=== PATIENT | male | born 1960 | race Caucasian/White ===

== ENCOUNTER 2019-09-06 08:40 | Outpatient (CLI) | payer OTHER, SELFPAY ==
[2019-09-06 09:46] LABS: ALT 35 U/L (16-63); AST 14 U/L (15-37); Albumin 3.7 g/dL (3.4-5.0); Alkaline Phosphatase 123 U/L (46-116); BUN 18 mg/dL (7-18); Bilirubin, Total 0.4 mg/dL (0.2-1.0); CREATININE 1.12 mg/dL (0.70-1.30); Calcium 8.6 mg/dL (8.5-10.1); Chloride 108 mmol/L (98-107); Glucose 138 mg/dL (74-106); Potassium 4.2 mmol/L (3.5-5.1); Sodium 144 mmol/L (136-145); Total Protein 6.7 g/dL (6.4-8.2)
== END 2019-09-06 09:00 ==
PROVIDERS: PCP Internal Medicine; Visit Provider Internal Medicine
DX: I10 Essential (primary) hypertension (principal); E78.5 Hyperlipidemia, unspecified; M10.9 Gout, unspecified
CPT/HCPCS: 36415; 80053

== ENCOUNTER 2019-10-04 08:21 | Outpatient (CLI) | payer OTHER, SELFPAY ==
[2019-10-04 09:34] LABS: Hemoglobin A1C 6.3 % (3.8-5.6)
== END 2019-10-04 08:41 ==
PROVIDERS: PCP Internal Medicine; Visit Provider Internal Medicine
DX: R73.9 Hyperglycemia, unspecified (principal)
CPT/HCPCS: 36415; 83036

== ENCOUNTER 2021-06-27 03:09 | Outpatient (CLI) | payer OTHER, SELFPAY ==
[2021-06-27 12:25] LABS: Hemoglobin A1C 6.6 % (<5.7)
[2021-06-27 12:39] LABS: CREATININE 1.3 mg/dL (0.70-1.30); Calculated LDL 60 mg/dL (<100); Cholesterol 161 mg/dL (<200); Estimated GFR 56.31 (mL/min/1.73m2); HDL Cholesterol 37 mg/dL (40-60); Triglyceride 320 mg/dL (<150)
[2021-06-27 22:38] LABS: PSA, Screening 1.1 ng/mL (0.0-4.5)
== END 2021-06-27 03:10 | disposition home or self-care (01) ==
LOC: LBO 03:09
PROVIDERS: PCP Nurse Practitioner; Visit Provider Nurse Practitioner
DX: I10 Essential (primary) hypertension (principal); E78.5 Hyperlipidemia, unspecified; R73.03 Prediabetes; Z12.5 Encounter for screening for malignant neoplasm of prostate; Z80.42 Family history of malignant neoplasm of prostate
CPT/HCPCS: 36415; 80061; 84153; 82565; 83036

== ENCOUNTER 2021-07-03 00:45 | Outpatient (CLI) | payer OTHER, SELFPAY ==
[2021-07-03 11:29] LABS: Source Nasal/Nares
[2021-07-03 17:20] LABS: COVID-19 PCR Negative (Negative)
== END 2021-07-03 00:46 | disposition home or self-care (01) ==
LOC: LBO 00:45
PROVIDERS: PCP Nurse Practitioner; Visit Provider Surgery
DX: Z20.822 Contact with and (suspected) exposure to COVID-19 (principal); Z01.818 Encounter for other preprocedural examination
CPT/HCPCS: 87635

== ENCOUNTER 2021-07-05 08:56 | Day surgery (SDC) | payer OTHER, SELFPAY ==
--- NOTE | 2021-07-04 22:35 | W.COLOREPORT ---
Colonoscopy Report Date of procedure: 07/05/21 Pre-op diagnosis general: + Fam Hx of CRC Post-op diagnosis procedure note: other (polyps x4) Surgeon: Gabi Baron Anesthesia Type: General:No Airway Estimated blood loss (mL): 1 Pathology: other Complications: None Disposition: same day Prep: Miralax/Dulcolax Retraction Time: 10 Procedure Description: After informed consent was obtained the patient was taken to the procedure room and placed in a left decubitous position. Monitors were applied and a time out was done. The patients name, date of , procedure, allergies to medications and metal in their body was reviewed. The patient was then sedated. Once sedated and comfortable a rectal exam was done. External exam was normal. Internal exam revealed a normal sphincter tone and no palpable masses. The scope was then introduced and retrofelexed. No internal hemorrhoids were identified. The scope was then advanced to the cecum w/out difficulty. The TI and appendiceal orifice were identified. The prep was adequate. The scope was then slowly retracted over 10 minutes back into the rectum. An .75 cm flat polyp removed with x2 bites w/ cold biting forcep. He had x3 5 mm flat polyps in the rectum that are each removed with 1 by a cold biting forcep. All specimen is retrieved and no bleeding is noted. There is no diverticula apparent. The scope was removed and the patient was woken up and taken back to Same day surgery in stable condition. The patient tolerated the procedure well and there were no immediate complications. Follow up: The patient should follow up in 5 years unless they develop changes in bowel habits or other new gastrointestinal complaints.
--- NOTE | 2021-07-04 22:36 | PDOC.DSDIS_ITS ---
Discharge Plan Disposition Patient Disposition: HOME Condition: Good Discharge Details Reason For Visit: colon Attending Provider: Gabi Baron Primary Care Provider: Hali King Home Meds and New Rx's Prescriptions: Discontinued polyethylene glycol 3350 17 gram/dose powder 238 g PO ONCE Qty: 238 RF: 0 bisacodyl [Dulcolax (bisacodyl)] 5 mg tablet,delayed release (DR/EC) 5 mg PO ONCE Qty: 4 RF: 0 No Action allopurinol 300 mg tablet 300 mg PO DAILY Qty: 90 RF: 4 atorvastatin [Lipitor] 40 mg tablet 40 mg PO DAILY Qty: 90 RF: 4 metoprolol succinate 100 mg tablet extended release 24 hr 100 mg PO DAILY Qty: 90 RF: 4 metformin 500 mg tablet 500 mg PO DAILY Qty: 90 RF: 4 Discharge Instructions Additional Instructions: DSU Colonoscopy Post- Op Instructions Instructions for Everyone who is given Anesthesia: For your safety, please do the following for the next twenty-four (24) hours: *Do Not operate a motor vehicle (car, truck, motorcycle, etc.) *Do Not drink alcoholic beverages or use any recreational drugs for the first 24 hours or while taking pain medications. The medications in your body may have a reaction that can be dangerous. *Do Not make any important decisions or sign any important papers. Findings: x4 polyps- small -Do not start metformin until Thursday Follow up: repeat scope in 5 yrs time 1. No lifting over 20 pounds or strenuous activity for the first 24 hours after your procedure. After 24 hours there are no restrictions on your activity but you may feel fatigued for a few days. 2. After you arrive home you may have a light meal and return to your normal diet as you can tolerate it without feeling sick to your stomach. 3. You may have a bloated, gaseous feeling in your belly (abdomen) after a colonoscopy. Passing gas and belching will help. Walking or lying down on your left side with your knees flexed may relieve the discomfort. Call the office at [phone] (Office) or [phone] (Hospital) right away if you notice any of the following: a.Vomiting of blood or ?coffee ground stools?. b.Rectal bleeding 1Tbsp, blood clots or continuous bleeding. c.Severe belly (abdominal) pain. d.A hard distended belly (abdomen) and an inability to pass gas. 4. Please don?t expect to have a normal BM (bowel movement) for 2-3 days after your procedure. 5. If there are questions regarding the findings of your procedure, please contact your doctor 6. If you are unable to contact your doctor with a problem, contact the hospital at [phone]. 7. Continue all your regular medications unless directed otherwise. I understand the above instructions and have no questions. Signature of Patient or Adult Escort Name of Responsible Adult Escort Signature of Nurse Date/Time Activity:: see above Diet:: see above Discharge Orders Discharge Orders: Discharge Order (Routine); Ordered 07/04/21 Ordered By: Gabi Baron DS: Diagnosis Discharge Diagnosis (1) Type 2 diabetes mellitus: Status: Acute (2) ASCVD (arteriosclerotic cardiovascular disease): Status: Chronic (3) Gout: Status: Chronic (4) Hyperlipidemia: Status: Chronic (5) Essential hypertension: Status: Chronic (6) History of heart artery stent: Status: Inactive (7) Tobacco use disorder: Status: Resolved (8) Adenomatous colon polyp: Status: Acute (9) Family history of colon cancer: Status: Acute
[2021-07-05 09:00] VITALS: BP 163/77; PULSE 74; RESP 18; TEMP 36.2; O2SAT 97
[2021-07-05] MEDS: Lactated Ringers 1,000 ML 80 ML IV (09:28)
--- NOTE | 2021-07-05 09:28 | W.ANESPRE ---
General Info Date of Service Date Performed: 07/05/21 Height: 5 ft 10 in Weight: 104.2 kg Body Mass Index (BMI): 32.9 Surgical Procedure: Operation Date: 07/05/21 09:50 Proposed Procedures Side Surgeon abhinav Baron, DO Meds Allergies and Home Medications Allergies Allergy/AdvReac Type Severity Reaction Status Date / Time No Known Drug Allergies Allergy Unverified 07/05/21 09:13 Home Medication Medication Instructions Recorded allopurinol 300 mg tablet 300 mg PO DAILY #90 tab-cap 06/20/21 atorvastatin 40 mg tablet 40 mg PO DAILY #90 tab-cap 06/20/21 metoprolol succinate 100 mg 100 mg PO DAILY #90 tab 06/20/21 tablet,extended release 24 hr bisacodyl 5 mg tablet,delayed 5 mg PO ONCE #4 tab 06/21/21 release polyethylene glycol 3350 17 238 g PO ONCE #238 g 06/21/21 gram/dose oral powder metformin 500 mg tablet 500 mg PO DAILY #90 tab 06/27/21 Current Visit Medications: Current Medications Generic Name Dose Route Start Last Admin Trade Name Freq PRN Reason Stop Dose Admin Hyoscyamine Sulfate 0.125 mg 07/04/21 22:37 Hyoscyamine 0.125 Mg Sl/Oral/Chew SL DIRECTED PRN Ringer's Solution 1,000 mls @ 80 mls/hr 07/05/21 06:00 IV 08/03/21 23:59 INFUSION BHANU IV Miscellaneous Supplies 1 each 07/05/21 06:00 Iv Access IV 08/03/21 23:59 DIRECTED BHANU Sodium Chloride 0 ml 07/05/21 06:00 Normal Saline Flush 10 Ml Syr IV 08/03/21 23:59 PRN PRN Sodium Chloride 0 ml 07/05/21 06:00 Normal Saline 10 Ml Vial IJ 08/03/21 23:59 DIRECTED PRN Sterile Water 0 ml 07/05/21 06:00 Water,Injection,Sterile 10 Ml Vial IJ 08/03/21 23:59 DIRECTED PRN PFSH Active Problems Active Problems: Problem Status Onset Code Type 2 diabetes mellitus E11.9 ASCVD (arteriosclerotic cardiovascular disease) I25.10 Gout M10.9 Hyperlipidemia E78.5 Essential hypertension I10 Medical History Medical History ASCVD (arteriosclerotic cardiovascular disease) stent to LAD 2006-has not needed to f/u up with cardiology but does with PCP Diabetes mellitus Essential hypertension Family history of colon cancer Family history of prostate cancer Gout Inactive right now. Herniated cervical disc without myelopathy Hyperlipidemia Surgical History Surgical History History of arthroplasty of right knee (~1996) Pt. states not arthroplasty but arthroscopy History of colonoscopy (~10/01/15) History of heart artery stent Tobacco Smoking/Tobacco Use Status: Former Tobacco Use Tobacco: How many years used: 20 Passive smoking exposure: Yes Alcohol Alcohol Intake: current Alcohol intake frequency: holidays/special occasions only Alcohol type: hard liquor Substance Use Substance use: Rarely Substance use type: marijuana Vital Signs and Lab Results Vital Signs Most Recent Vital Signs in EMR: Most Recent Vital Signs Temp Pulse Resp BP Pulse Ox 36.2 C L 74 18 163/77 H 97 07/05/21 09:00 07/05/21 09:00 07/05/21 09:00 07/05/21 09:00 07/05/21 09:00 Point of Care Results Point of Care Results: Finger Stick Blood Glucose 116 07/05/21 09:24 Lab Results Blood Type / Crossmatch: No Data to Display Complete Blood Count: No Data to Display Complete Metabolic Panel: Creatinine 1.3 mg/dL (0.70-1.30) 06/27/21 11:20 06/27/21 Estimated GFR/1.73 m2 56.31 (mL/min/1.73m2) 06/27/21 11:20 06/27/21 Hemoglobin A1c 6.6 % (<5.7) H 06/27/21 11:20 06/27/21 Liver Function Panel: No Data to Display Coagulation Panel: No Data to Display Cardiac Panel: No Data to Display Arterial Blood Gas: No Data to Display Venous Blood Gas: No Data to Display Pancreas Panel: No Data to Display Thyroid Panel: No Data to Display Infectious Disease: Coronavirus (COVID-19)(PCR) Negative (Negative) 07/03/21 08:44 07/03/21 Coronavirus 2019 Source Nasal/Nares 07/03/21 08:44 07/03/21 Blood Cultures: No Data to Display Toxicology Panel: No Data to Display Anesthesia Assessment and Plan Anesthesia History Personal History: No History of Anesthesia Complications Family History: No Family History of Anesthesia Complications Exercise Tolerance Exercise Tolerance: Metabolic Equivalents>4 Pertinent Negatives Pertinent Negatives: No Symptoms of GERD, No Major Cardiovascular Symptoms or Complaints (No symptoms since Stenting in 2005), No Major Pulmonary Symptoms or Complaints and No History of CVA/TIA Cardiac & Pulmonary Exam Cardiac Exam: Normal S1/S2 Heart Sounds Pulmonary Exam: Clear Bilateral Breath Sounds and No cough or Cold Airway Exam Known Difficult Airway: No Mallampati Class: 2 Mouth Opening: Normal (> 3cm) Thyromental Distance: Greater than 3 cm Neck Range of Motion: Full ROM Neck Circumference: Normal Teeth Condition: Edentulous ASA Classification ASA Score: ASA 2 Emergency Case?: No NPO Status NPO Status: NPO Clears >2 hours, Solids >8 hours Anesthesia Plan Resuscitation Status: Full Code Anesthesia Technique: General Anesthesia Airway Planned: Natural Airway Monitors Used: Standard Monitors
[2021-07-05 09:34] VITALS: BMI 32.9
--- NOTE | 2021-07-05 10:27 | BOWEL_PTH ---
PATIENT: Tien Clifton LOC: [facility] U#:[id number] AGE/SX: 61/M ROOM: RE07/05/[address]: Gabi Baron : 1960 BED: DIS: 07/05/2021 SPEC #: [id number] RECD: 07/05/21 12:39 STATUS: ALVERTO REQ #: [id number] NESSA: 07/05/21 10:[address]: Gabi Baron DEPT: Surgical Specimen RECD BY: Shelbi Dinero ENTERED: 07/05/21 12:41 SP TYPE: Bowel OTHR DR: Hali King, PhD OPTIMIZATION SPECIALIST Tissues: 1 - BIOPSY BOWEL 2 - BIOPSY BOWEL Procedures: GROSS AND MICRO LEVEL 4 Comments: [id number]
[2021-07-05 10:42] VITALS: BP 128/84; PULSE 75; RESP 16; TEMP 36.3; O2SAT 91
--- NOTE | 2021-07-05 10:55 | PDOC.DSDIS_ITS ---
Discharge Plan Disposition Patient Disposition: HOME Condition: Good Discharge Details Reason For Visit: colon Attending Provider: Gabi Baron Primary Care Provider: Hali King Home Meds and New Rx's Prescriptions: Discontinued polyethylene glycol 3350 17 gram/dose powder 238 g PO ONCE Qty: 238 RF: 0 bisacodyl [Dulcolax (bisacodyl)] 5 mg tablet,delayed release (DR/EC) 5 mg PO ONCE Qty: 4 RF: 0 No Action allopurinol 300 mg tablet 300 mg PO DAILY Qty: 90 RF: 4 atorvastatin [Lipitor] 40 mg tablet 40 mg PO DAILY Qty: 90 RF: 4 metoprolol succinate 100 mg tablet extended release 24 hr 100 mg PO DAILY Qty: 90 RF: 4 metformin 500 mg tablet 500 mg PO DAILY Qty: 90 RF: 4 Discharge Instructions Additional Instructions: DSU Colonoscopy Post- Op Instructions Instructions for Everyone who is given Anesthesia: For your safety, please do the following for the next twenty-four (24) hours: *Do Not operate a motor vehicle (car, truck, motorcycle, etc.) *Do Not drink alcoholic beverages or use any recreational drugs for the first 24 hours or while taking pain medications. The medications in your body may have a reaction that can be dangerous. *Do Not make any important decisions or sign any important papers. Findings: x4 polyps- small -Do not start metformin until Thursday -gargle w/ salt water 5-6x a day -if running a fever (>100.5), coughing up green/yellow phlegm, or feel short of breathe- go to the ER. Follow up: repeat scope in 5 yrs time 1. No lifting over 20 pounds or strenuous activity for the first 24 hours after your procedure. After 24 hours there are no restrictions on your activity but you may feel fatigued for a few days. 2. After you arrive home you may have a light meal and return to your normal diet as you can tolerate it without feeling sick to your stomach. 3. You may have a bloated, gaseous feeling in your belly (abdomen) after a colonoscopy. Passing gas and belching will help. Walking or lying down on your left side with your knees flexed may relieve the discomfort. Call the office at [phone] (Office) or [phone] (Hospital) right away if you notice any of the following: a.Vomiting of blood or ?coffee ground stools?. b.Rectal bleeding 1Tbsp, blood clots or continuous bleeding. c.Severe belly (abdominal) pain. d.A hard distended belly (abdomen) and an inability to pass gas. 4. Please don?t expect to have a normal BM (bowel movement) for 2-3 days after your procedure. 5. If there are questions regarding the findings of your procedure, please contact your doctor 6. If you are unable to contact your doctor with a problem, contact the hospital at [phone]. 7. Continue all your regular medications unless directed otherwise. I understand the above instructions and have no questions. Signature of Patient or Adult Escort Name of Responsible Adult Escort Signature of Nurse Date/Time Stand Alone Forms: Kimberly Hernandez (JESSICA) Activity:: see above Diet:: see above Discharge Orders Discharge Orders: Discharge Order (Routine); Ordered 07/04/21 Ordered By: Gabi Baron DS: Diagnosis Discharge Diagnosis (1) Type 2 diabetes mellitus: Status: Acute (2) ASCVD (arteriosclerotic cardiovascular disease): Status: Chronic (3) Gout: Status: Chronic (4) Hyperlipidemia: Status: Chronic (5) Essential hypertension: Status: Chronic (6) History of heart artery stent: Status: Inactive (7) Tobacco use disorder: Status: Resolved (8) Adenomatous colon polyp: Status: Acute (9) Family history of colon cancer: Status: Acute
--- NOTE | 2021-07-05 11:08 | W.ANESPOSTOP ---
Postoperative Evaluation Date, Time and Location Date Performed: 07/05/21 Time Performed: 10:55 Patient Location: Day Surgery Unit Vital Signs Most Recent Imported Vital Signs: Most Recent Vital Signs Temp Pulse Resp BP Pulse Ox 36.3 C L 75 16 128/84 91 L 07/05/21 10:42 07/05/21 10:42 07/05/21 10:42 07/05/21 10:42 07/05/21 10:42 Pain Score Most Recent Pain Score: Most Recent Pain Score Pain Level 0 07/05/21 10:42 Assessment Mental Status: Awake (Alert & Oriented to Patient Baseline) Airway and Respiratory Function: Patent airway with normal (patient baseline) respiratory exam Cardiovascular Function: Hemodynamically Stable Hydration Status: Adequately Hydrated Nausea & Vomiting: No Nausea or Vomiting Pain: Pt. Denies Any Pain Peripheral Nerve Block: Patient did not receive a nerve block Postoperative Comments:: Discussed possible aspiration , O2 sats improving, able to take deeps breath,s,instructed to seek medical attention for any respiratory issues.
[2021-07-05 11:09] VITALS: BP 136/75; PULSE 68; RESP 18; TEMP 36.3; O2SAT 92
== END 2021-07-05 11:40 | disposition home or self-care (01) ==
PROVIDERS: PCP Nurse Practitioner; Visit Provider Surgery
PROC: 0DJD8ZZ Inspection of Lower Intestinal Tract, Via Natural or Artificial Opening Endoscopic (ICD-10-PCS; CPT 45378; principal; 2021-07-05 09:45)
DX: Z12.11 Encounter for screening for malignant neoplasm of colon (principal); D12.4 Benign neoplasm of descending colon; Z80.0 Family history of malignant neoplasm of digestive organs; E11.9 Type 2 diabetes mellitus without complications; K62.1 Rectal polyp
CPT/HCPCS: 45380; 88305; J2001; J2405

== ENCOUNTER 2022-10-28 03:07 | Outpatient (CLI) | payer OTHER, SELFPAY ==
[2022-10-28 12:54] LABS: ALT 35 U/L (16-63); AST 21 U/L (15-37); Alkaline Phosphatase 118 U/L (46-116); Anion Gap 9.3 mmol/L (3-11); BUN 23 mg/dL (7-18); Bilirubin, Total 0.3 mg/dL (0.2-1.0); CO2 27.7 mmol/L (21.0-32.0); CREATININE 1.3 mg/dL (0.70-1.30); Calcium 9.5 mg/dL (8.5-10.1); Chloride 105 mmol/L (98-107); Glucose 133 mg/dL (74-106); Sodium 142 mmol/L (136-145); Total Protein 7.6 g/dL (6.4-8.2)
[2022-10-28 12:58] LABS: COMMENT (LAB VIEW ONLY) 135.12 mg/dL; Microalb ug/mg Crea 30.4 ug/mg Cr
[2022-10-28 13:00] LABS: Calculated LDL 90 mg/dL (<100); Cholesterol 173 mg/dL (<200); HDL Cholesterol 45 mg/dL (40-60); Triglyceride 193 mg/dL (<150)
[2022-10-28 18:49] LABS: PSA, Screening 1.1 ng/mL (<=4.5)
[2022-10-28 19:14] LABS: Estimated Average Glucose 166 mg/dL; Hemoglobin A1C 7.4 % (<5.7)
== END 2022-10-28 03:08 | disposition home or self-care (01) ==
LOC: LOS 03:07
PROVIDERS: Family Medicine; PCP Nurse Practitioner Family; Visit Provider Nurse Practitioner Family
DX: E11.9 Type 2 diabetes mellitus without complications (principal); E78.5 Hyperlipidemia, unspecified; Z12.5 Encounter for screening for malignant neoplasm of prostate
CPT/HCPCS: 36415; 80053; 80061; 84153; 82043; 82570; 83036

== ENCOUNTER 2023-10-27 09:36 | Outpatient (REF) | payer OTHER, SELFPAY ==
[2023-10-27 12:56] LABS: ALT 41 U/L (16-63); AST 21 U/L (15-37); Albumin 3.9 g/dL (3.4-5.0); Alkaline Phosphatase 110 U/L (46-116); Anion Gap 8.8 mmol/L (3-11); BUN 21 mg/dL (7-18); Bilirubin, Total 0.4 mg/dL (0.2-1.0); CO2 24.2 mmol/L (21.0-32.0); CREATININE 1.3 mg/dL (0.70-1.30); Calculated LDL 80 mg/dL (<100); Chloride 107 mmol/L (98-107); Cholesterol 178 mg/dL (<200); Estimated GFR 62.11 (mL/min/1.73m2); Glucose 181 mg/dL (74-106); HDL Cholesterol 41 mg/dL (40-60); Potassium 4.2 mmol/L (3.5-5.1); Sodium 140 mmol/L (136-145); Total Protein 7.2 g/dL (6.4-8.2); Triglyceride 287 mg/dL (<150)
[2023-10-28 10:33] LABS: HIV-1/2 Ag & Ab Screen Negative (Negative)
== END 2023-10-27 09:37 | disposition home or self-care (01) ==
LOC: LBN 09:36
PROVIDERS: PCP Nurse Practitioner Family; Visit Provider Nurse Practitioner Family
DX: E11.9 Type 2 diabetes mellitus without complications (principal); E78.5 Hyperlipidemia, unspecified; Z11.4 Encounter for screening for human immunodeficiency virus [HIV]
CPT/HCPCS: 80053; 80061; 87389; 83036

== ENCOUNTER 2024-01-03 09:15 | Emergency (ER) | payer OTHER, SELFPAY ==
[2024-01-03] VITALS (31 sets, daily range): BP systolic 145–220; BP diastolic 77–106; PULSE 66–90; RESP 8–22; TEMP 36.8; O2SAT 95–98
--- NOTE | 2024-01-03 09:15 | RT.EKG_ITS ---
APPROVED REPORT Exam: Resting ECG Reason for Exam: Chest Pain Patient Location: E HR:92 bpm ECG Measurements Heart Rate 92 AXIS HI 151 P 30 QRSd 85 QRS 28 QT 342 T -11 QTc 424 Conclusion Sinus rhythm 92 no stemi
--- NOTE | 2024-01-03 09:36 | ED.GENADUL_ITS ---
Discharge Plan Disposition Patient Disposition: Home Condition: Stable Discharge Details Clinical Impression: Chest pain of uncertain etiology Primary Care Provider: Fernando Vidal ED Provider: Herber Gonzalez Home Meds and New Rx's Prescriptions: Continued sildenafil [Viagra] 50 mg tablet 50 mg PO DAILY PRN (Reason: sexual activity) Qty: 14 0RF Rx Instructions: administer 30 minutes to 4 hours before activity amlodipine 5 mg tablet 5 mg PO DAILY Qty: 90 4RF Ozempic 0.25 mg or 0.5 mg (2 mg/3 mL) pen injector 0.25 mg subcut QWEEK Qty: 3 0RF Hold Instructions: Formulary/Insurance Rx Instructions: for 4 weeks lisinopril 20 mg tablet 20 mg PO DAILY Qty: 90 4RF metformin 500 mg tablet extended release 24hr 500 mg PO DAILY Qty: 90 4RF Rx Instructions: dose decrease allopurinol 300 mg tablet 300 mg PO DAILY Qty: 90 4RF atorvastatin [Lipitor] 40 mg tablet 40 mg PO DAILY Qty: 90 4RF metoprolol succinate 100 mg tablet extended release 24 hr 100 mg PO DAILY Qty: 90 4RF dulaglutide 0.75 mg/0.5 mL pen injector 0.75 mg subcut QWEEK Qty: 2 0RF Discharge Instructions Instructions: Chest Pain (ED) Additional Instructions: You were seen in the emergency department for your right-sided chest pain starting this morning. It is somewhat resolved throughout the visit today. We did provide you with some aspirin, we checked your cardiac enzymes with multiple rechecks and found that this is not likely a heart attack or causing any damage to the heart itself. Ruled out a blood clot in the lungs through a lab called a D-dimer. Your chest x-ray is unremarkable. Your EKG shows no ischemic changes. You have a stress test scheduled for tomorrow which is excellent close follow-up, please try gentle compress to your right-sided chest pain as well as some Tylenol and ibuprofen, talk to your primary care provider about increasing your amlodipine dose for your noticed mild hypertension, there is no evidence of significant damage from your hypertension at today's visit. Please return to the ER at once for any severe increase in chest pain especially with shortness of breath, sweating, dizziness, visual changes. Referrals: Fernando Vidal, [facility] [Primary Care Provider] - Discharge Data Discharge Date/Time-TO BE ENTERED AT DEPARTURE: 01/03/24 13:40 HPI General Date/Time Provider Initiated Documentation: 01/03/24 09:30 . HPI Narrative: 63 year-old male presents to ED today by POV/ambulating with a chief complaint of chest discomfort, R-sided, pleuritic with onset about an hour ago. Quality described as cramping in nature, no radiation to shortness of breath currently, near syncope, diaphoresis, fever, cough, abdominal pain, visual changes. Severity is described as 6/10. Palliating factors include nothing specific attempted. Provoking factors include nothing specific. Events leading up to the incident/Associated Symptoms: Patient has an outpatient stress test scheduled for tomorrow for history of shortness of breath on exertion/fatigue. Patient not anticoagulated. Related Data Home Medications Medication Instructions Recorded Confirmed allopurinol 300 mg tablet 300 mg PO DAILY #90 tab-caps 10/13/23 01/03/24 atorvastatin 40 mg tablet (Lipitor) 40 mg PO DAILY #90 tab-caps 10/13/23 01/03/24 metoprolol succinate 100 mg 100 mg PO DAILY #90 tabs 10/13/23 01/03/24 tablet,extended release 24 hr sildenafil 50 mg tablet (Viagra) 50 mg PO DAILY PRN sexual activity 10/27/23 01/03/24 #14 tabs amlodipine 5 mg tablet 5 mg PO DAILY #90 tabs 11/14/23 01/03/24 semaglutide 0.25 mg or 0.5 mg (2 0.25 mg (0.368 mL) subcut QWEEK #3 11/14/23 01/03/24 mg/3 mL) subcutaneous pen injector mL (Ozempic) lisinopril 20 mg tablet 20 mg PO DAILY #90 tabs 12/28/23 01/03/24 metformin 500 mg tablet,extended 500 mg PO DAILY #90 tabs 12/28/23 01/03/24 release 24hr (osmotic) dulaglutide 0.75 mg/0.5 mL 0.75 mg (0.5 mL) subcut QWEEK #2 mL 01/01/24 01/03/24 subcutaneous pen injector Previous Rx's Medication Instructions Recorded allopurinol 300 mg tablet 300 mg PO DAILY #90 tab-caps 10/13/23 atorvastatin 40 mg tablet (Lipitor) 40 mg PO DAILY #90 tab-caps 10/13/23 metoprolol succinate 100 mg 100 mg PO DAILY #90 tabs 10/13/23 tablet,extended release 24 hr sildenafil 50 mg tablet (Viagra) 50 mg PO DAILY PRN sexual activity 10/27/23 #14 tabs amlodipine 5 mg tablet 5 mg PO DAILY #90 tabs 11/14/23 semaglutide 0.25 mg or 0.5 mg (2 0.25 mg (0.368 mL) subcut QWEEK #3 11/14/23 mg/3 mL) subcutaneous pen injector mL (Ozempic) lisinopril 20 mg tablet 20 mg PO DAILY #90 tabs 12/28/23 metformin 500 mg tablet,extended 500 mg PO DAILY #90 tabs 12/28/23 release 24hr (osmotic) dulaglutide 0.75 mg/0.5 mL 0.75 mg (0.5 mL) subcut QWEEK #2 mL 01/01/24 subcutaneous pen injector Allergies Allergy/AdvReac Type Severity Reaction Status Date / Time No Known Allergies Allergy Verified 01/03/24 11:42 General Stated Complaint: Chest Pain SARAH: 2 Review of Systems All systems reviewed & are unremarkable except as noted in HPI and below Exam Narrative Exam Narrative: GENERAL APPEARANCE: Well-nourished, non-toxic, awake and alert, atraumatic, no acute distress. SKIN: Warm, pink, dry, intact, without rashes/lesions/ulcerations. HEAD: Normocephalic, atraumatic, normal hair distribution for gender/age. EYES: Pupils PERRLA, EOMs intact without nystagmus, normal conjunctiva, no exudates on lids/lashes. ENT: Nares patent, no circumoral cyanosis, no facial swelling NECK: Supple, trachea midline, painless cervical ROM. LUNGS/CHEST: Lungs CTA bilaterally- no rhonchi/rales/wheezes diffusely, non- labored respirations, normal A/P diameter, symmetrical expansion, no chest wall deformity, mild TTP at R lower ribs, no crepitus HEART (CV/PV): Regular rate and rhythm without murmur, no peripheral edema, no JVD. ABDOMEN: Soft, non-distended, no guarding, no tenderness. MSK: Normal ROM, no swelling/deformity to bilateral UEs or LEs, moving all extremities without weakness, no cyanosis, spine midline without tenderness, normal curvature. NEURO: Mental Status AAOx4 - alert to person, place, time, events No facial droop, no forehead involvement. Motor: No focal weakness - strength 5/5 in bilateral UEs and LEs, proximal and distal, symmetric. Sensory: sensation intact to light touch globally. Gait normal: patient ambulated without ataxia into ED room. PSYCH: euthymic, cooperative, pleasant, appropriate speech Course Vital Signs Vital signs: Vital Signs Temperature 36.8 C 01/03/24 09:19 Pulse 90 01/03/24 09:19 Respiratory Rate 18 01/03/24 09:19 Blood Pressure 220/100 H 01/03/24 09:19 Pulse Oximetry 97 01/03/24 09:19 Temperature 36.8 C 01/03/24 09:19 Temperature Source Temporal Artery Scan 01/03/24 09:19 Pulse 90 01/03/24 09:19 Respiratory Rate 18 01/03/24 09:19 Blood Pressure 220/100 H 01/03/24 09:19 Blood Pressure Position Supine 01/03/24 09:19 Pulse Oximetry 97 01/03/24 09:19 Oxygen Delivery Method Room Air 01/03/24 09:19 Oxygen Flow Rate 0 01/03/24 09:19 Medical Decision Making This dictation utilizes [id number] dictation software and may contain unedited grammatical errors. 63 y/o M presents to ED today with a chief complaint of R sided chest pain, cramping in nature, pleuritic- denies SOB, sweating, near syncope- has outpatient stress test for generalized fatigue on exertion tomorrow. Onset 1 hour prior to arrival. Patients' medical history: Diabetes mellitus, history of 2 stents in remote past, hypertension, hyperlipidemia. Family and social history: tries to eat healthy, no recent travel. Pertinent exam findings / vital signs include benign cardiopulmonary exam, benign abdomen, neurovascularly intact in all extremities, neuro intact. Differential / pathologies of concern include ACS, PE, pneumonia, costochondritis, pleurisy. Diagnostic studies of: -CBC, CMP, serial troponins, BNP, D-dimer, EKG, chest x-ray, lipase. -CBC is benign -CMP benign, -Serial troponins negative, BNP within normal limits -Lipase within normal limits -D-dimer negative -UA benign -EKG shows no evidence of acute ischemic changes, sinus rhythm, normal axis, P waves, narrow complex QRS, normal QT QTc -CXR shows no PNA, no widened mediastinum, no acute pathology Interventions of: -500 mL fluid bolus, 324 chewable aspirin. ED Course/Assessment/Plan: 63-year-old male presents with acute right-sided chest pain 1 hour before arrival, serial troponins are negative I do not suspect ACS, his pain is right- sided and pleuritic and PE was ruled out by negative D-dimer, there is no evidence to suggest pulmonary pathology on chest x-ray, his EKG is benign, he is low risk on heart score but he does have history of 2 stents. He does have an outpatient stress test scheduled for tomorrow. I counseled him on possible costochondritis and trial of APAP/NSAIDs and gentle heat application but strict return criteria for further chest pain especially with shortness of breath, diaphoresis, near-syncope. Findings not consistent with ACS, PE, pneumonia, cardiopulmonary emergency. Disposition of chest pain of uncertain etiology. Patient verbalized understanding of the plan and return to ED criteria and engaged in shared decision making. Medical Records Medical records reviewed: Yes I reviewed the patient's medical records. Imaging Data Radiologic Study: Attestation: I personally reviewed and interpreted this imaging study as follows: Imaging: X-Ray Radiologist's impression: Exam: XR Chest Exam date and time: 01/03/2024 12:54 PM Age: 63 years old Clinical indication: Other: Chest discomfort TECHNIQUE: Imaging protocol: Radiologic exam of the chest. Views: 2 views. COMPARISON: No relevant prior studies available. FINDINGS: Lungs: Unremarkable. No consolidation. Pleural spaces: Unremarkable. No pleural effusion. No pneumothorax. Heart/Mediastinum: Unremarkable. No cardiomegaly. Bones/joints: Unremarkable. IMPRESSION: No acute findings. Dictated and Authenticated by: Ashley Lloyd MD. Ordering:TAYLER Craven MD Lab Data Lab results reviewed: Yes I reviewed the patient's lab results. Labs: Laboratory Tests Range/Units 01/03/24 01/03/24 01/03/24 09:39 09:39 09:39 WBC (4.4-10.8) 10^3/uL 6.97 RBC (4.36-5.78) 10^6/uL 5.10 Hgb (13.5-17.5) g/dL 13.7 Hct (40.0-50.0) % 40.9 MCV (80-95) fL 80 MCH (27.0-33.0) pg 26.9 L MCHC (32.0-36.0) % 33.5 RDW (11.8-14.1) % 13.3 Plt Count (130-400) 10^3/uL 204 MPV (8.0-11.0) fL 8.7 Immature Gran % 0.4 Neutrophils % 62.5 Lymphocytes % 29.0 Monocytes % 6.0 Eosinophils % 1.7 Basophils % 0.4 Nucleated RBC % (0.0-0.3) % 0.0 Absolute Neutrophils (1.2-6.7) 10^3/uL 4.35 Absolute Lymphocytes (1.2-3.4) 10^3/uL 2.02 Absolute Monocytes (0.1-0.8) 10^3/uL 0.42 Absolute Eosinophils (0.0-0.7) 10^3/uL 0.12 Absolute Basophils (0.0-0.2) 10^3/uL 0.03 D-Dimer (<500) ng/mlFEU 324 Sodium (136-145) mmol/L 140 Potassium (3.5-5.1) mmol/L 4.1 Chloride (98-107) mmol/L 104 Carbon Dioxide (21.0-32.0) mmol/L 24.8 Anion Gap (3-11) mmol/L 11.2 H BUN (7-18) mg/dL 17 Creatinine (0.70-1.30) mg/dL 1.3 Est GFR (CKD-EPI 2020) (mL/min/1.73m2) 62.11 Glucose (74-106) mg/dL 200 H Calcium (8.5-10.1) mg/dL 8.8 Total Bilirubin (0.2-1.0) mg/dL 0.3 AST (15-37) U/L 14 L ALT (16-63) U/L 36 Alkaline Phosphatase (46-116) U/L 118 H Troponin I (< or =60) ng/L < 50 Cancelled NT-Pro-B Natriuret Pep (<300) pg/mL 20 Cancelled Total Protein (6.4-8.2) g/dL 7.2 Albumin (3.4-5.0) g/dL 3.7 Lipase (16-77) U/L 45 Urine Color (Yellow) Urine Clarity (Clear) Urine pH (5-8) Ur Specific [place] (1.005-1.025) Urine Protein (Neg-Trace) mg/dL Urine Ketones (Negative) mg/dL Urine Blood (Negative) Urine Nitrite (Negative) Urine Bilirubin (Negative) Urine Urobilinogen (Up to 0.2) mg/dL Ur Leukocyte Esterase (Negative) Urine Glucose (Negative) mg/dL Range/Units 01/03/24 01/03/24 10:36 12:39 WBC (4.4-10.8) 10^3/uL RBC (4.36-5.78) 10^6/uL Hgb (13.5-17.5) g/dL Hct (40.0-50.0) % MCV (80-95) fL MCH (27.0-33.0) pg MCHC (32.0-36.0) % RDW (11.8-14.1) % Plt Count (130-400) 10^3/uL MPV (8.0-11.0) fL Immature Gran % Neutrophils % Lymphocytes % Monocytes % Eosinophils % Basophils % Nucleated RBC % (0.0-0.3) % Absolute Neutrophils (1.2-6.7) 10^3/uL Absolute Lymphocytes (1.2-3.4) 10^3/uL Absolute Monocytes (0.1-0.8) 10^3/uL Absolute Eosinophils (0.0-0.7) 10^3/uL Absolute Basophils (0.0-0.2) 10^3/uL D-Dimer (<500) ng/mlFEU Sodium (136-145) mmol/L Potassium (3.5-5.1) mmol/L Chloride (98-107) mmol/L Carbon Dioxide (21.0-32.0) mmol/L Anion Gap (3-11) mmol/L BUN (7-18) mg/dL Creatinine (0.70-1.30) mg/dL Est GFR (CKD-EPI 2020) (mL/min/1.73m2) Glucose (74-106) mg/dL Calcium (8.5-10.1) mg/dL Total Bilirubin (0.2-1.0) mg/dL AST (15-37) U/L ALT (16-63) U/L Alkaline Phosphatase (46-116) U/L Troponin I (< or =60) ng/L < 50 NT-Pro-B Natriuret Pep (<300) pg/mL Total Protein (6.4-8.2) g/dL Albumin (3.4-5.0) g/dL Lipase (16-77) U/L Urine Color (Yellow) Yellow Urine Clarity (Clear) Clear Urine pH (5-8) 5.5 Ur Specific [place] (1.005-1.025) 1.020 Urine Protein (Neg-Trace) mg/dL Negative Urine Ketones (Negative) mg/dL Negative Urine Blood (Negative) Negative Urine Nitrite (Negative) Negative Urine Bilirubin (Negative) Negative Urine Urobilinogen (Up to 0.2) mg/dL 0.2 Ur Leukocyte Esterase (Negative) Negative Urine Glucose (Negative) mg/dL Negative Quality:SDOH Health Related Social Needs: No Data to Display PFSH All Active Problems (Updated 01/03/24 @ 13:25 by MICHELLE Angela) Chest pain of uncertain etiology (Acute) Erectile dysfunction (Acute) Family history of colon cancer (Acute) Adenomatous colon polyp (Acute) Type 2 diabetes mellitus (Acute) ASCVD (arteriosclerotic cardiovascular disease) (Chronic) stent to LAD 2005-has not needed to f/u up with cardiology but does with PCP Gout (Chronic) Inactive right now. 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 states not arthroplasty but arthroscopy History of heart artery stent Family History Mother , age 80 Diabetes Depression Mental disorder Depression Father , age 49 Stomach cancer Lung cancer Brother , age 71 Essential hypertension Hyperlipidemia Colon cancer Prostate cancer Brother Heart disease Son No problems noted. Daughter , age 20 Asthma Hypertension Brother Heart disease Neoplasm COLON Paternal Grandfather Heart disease Hyperlipidemia Cancer Sister , 61 No problems noted. Social History Smoking/Tobacco Use Status: Former Tobacco Use tobacco type: cigarettes and smokeless tobacco Quit Date: 10/12/99 Tobacco: How many years used: 20 Smokeless tobacco user: chewing tobacco and snuff Second Hand Exposure: Yes Smoking risk assessment performed?: Yes Alcohol Intake: current Alcohol Intake frequency: holidays/special occasions only Alcohol type: beer and hard liquor Drug use: Occasionally Substance use type: marijuana Adopted: No Caregiver/Support person: No Household members: other Details: Dorm parent Housing: other Details: dorm Education Level: high school Do you need help understanding health information?: Never 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 Pets and animals: No Sexually active: No Do you think of yourself as: straight/heterosexual Current gender identity: male What is your relationship status?: How often do you talk on the phone with friends or family?: three or more times per week How often do you get together with friends or relatives?: twice per week How often do you attend baptist or cheondoism services?: 1-3 times per year Do you belong to any clubs or organized social groups?: yes Panel score (0-1 are the most socially isolated patients): 2 What type of physical activity do you participate in: walking Duration: 30-45 minutes/day Frequency: 1-2 times per week Special jaime needs: No Agree to transfusion: Yes Seatbelt use: sometimes Helmet use: Yes Helmet use: sometimes Drive intox or ride w/intox parts delivery driver: No Working smoke detector in home: Yes Carbon monox detector in home: Yes Firearms in home: Yes Firearms unloaded and locked: Yes Do you feel safe at home: Yes Do you feel safe in your relationship?: Yes Victim of physical abuse: No Victim of emotional abuse: No Victim of sexual abuse: No
[2024-01-03] MEDS: Aspirin 81 MG CHEW 324 MG CH (09:43)
[2024-01-03] MEDS: Normal Saline 500 ML IV (09:50)
[2024-01-03 09:55] LABS: Abs Immature Grans 0.03 10^3/uL (0.0-0.06); Absolute Basophil Count 0.03 10^3/uL (0.0-0.2); Absolute Eosinophil Count 0.12 10^3/uL (0.0-0.7); Absolute Lymphocyte Count 2.02 10^3/uL (1.2-3.4); Absolute Monocyte Count 0.42 10^3/uL (0.1-0.8); Absolute Neutrophil Count 4.35 10^3/uL (1.2-6.7); Basophils % 0.4; Eosinophils % 1.7; HCT 40.9 % (40.0-50.0); HGB 13.7 g/dL (13.5-17.5); Immature Grans % 0.4; MCH 26.9 pg (27.0-33.0); MCHC 33.5 % (32.0-36.0); MCV 80 fL (80-95); MPV 8.7 fL (8.0-11.0); Neutrophils % 62.5; Platelet Count 204 10^3/uL (130-400); RDW 13.3 % (11.8-14.1); RDW-SD 38.3 fL; WBC 6.97 10^3/uL (4.4-10.8)
[2024-01-03 10:15] LABS: ALT 36 U/L (16-63); AST 14 U/L (15-37); Albumin 3.7 g/dL (3.4-5.0); Alkaline Phosphatase 118 U/L (46-116); Anion Gap 11.2 mmol/L (3-11); BUN 17 mg/dL (7-18); Bilirubin, Total 0.3 mg/dL (0.2-1.0); CO2 24.8 mmol/L (21.0-32.0); CREATININE 1.3 mg/dL (0.70-1.30); Calcium 8.8 mg/dL (8.5-10.1); Chloride 104 mmol/L (98-107); Estimated GFR 62.11 (mL/min/1.73m2); Glucose 200 mg/dL (74-106); Lipase 45 U/L (16-77); NT-proBNP 20 pg/mL (<300); Potassium 4.1 mmol/L (3.5-5.1); Sodium 140 mmol/L (136-145); Total Protein 7.2 g/dL (6.4-8.2); Troponin I < 50 ng/L (< or =60)
--- NOTE | 2024-01-03 10:39 | NUR.NOTE ---
report given to Carlitos EMT-P and care relinquished
[2024-01-03 10:44] LABS: Bilirubin Negative (Negative); Blood Negative (Negative); Clarity Clear (Clear); Glucose Negative (Negative); Ketones Negative (Negative); Leukocyte Esterase Negative (Negative); Nitrite Negative (Negative); Urobilinogen 0.2 mg/dL (Up to 0.2); pH 5.5 (5-8)
[2024-01-03 10:51] LABS: D-Dimer 324 ng/mlFEU (<500)
--- NOTE | 2024-01-03 12:00 | DI.RAD_ITS ---
Exam(s) XR CHEST 2V PA LATERAL EXAM: XR CHEST 2V PA LATERAL CLINICAL HISTORY: chest discomfort TECHNIQUE: 2D digital imaging was performed. Two views. COMPARISON: No exams were available for comparison FINDINGS: Leads overlie the chest. HEART: Normal size. Aorta: Not dilated. PULMONARY VASCULATURE: Normal. LUNGS: Clear. PLEURAL SPACE: No pleural effusion or pneumothorax. BONE:Unremarkable for age. Soft tissues: Unremarkable. IMPRESSION: No acute abnormality. DATA REPOSITORY: RADIATION DOSE DELIVERED:
[2024-01-03 13:11] LABS: Troponin I < 50 ng/L (< or =60)
--- NOTE | 2024-01-03 13:16 | DI.VRAD_ITS ---
PROCEDURE INFORMATION: Exam: XR Chest Exam date and time: 01/03/2024 12:54 PM Age: 63 years old Clinical indication: Other: Chest discomfort TECHNIQUE: Imaging protocol: Radiologic exam of the chest. Views: 2 views. COMPARISON: No relevant prior studies available. FINDINGS: Lungs: Unremarkable. No consolidation. Pleural spaces: Unremarkable. No pleural effusion. No pneumothorax. Heart/Mediastinum: Unremarkable. No cardiomegaly. Bones/joints: Unremarkable. IMPRESSION: No acute findings. Dictated and Authenticated by: Ashley Lloyd MD. Ordering:TAYLER Craven MD
== END 2024-01-03 13:40 | disposition home or self-care (01) ==
PROVIDERS: Emergency Provider Physician Assistant; PCP Nurse Practitioner Family
DX: R07.9 Chest pain, unspecified (principal); I10 Essential (primary) hypertension; I25.10 Atherosclerotic heart disease of native coronary artery without angina pectoris; Z95.820 Peripheral vascular angioplasty status with implants and grafts; Z83.3 Family history of diabetes mellitus
CPT/HCPCS: 36415; 80053; 83690; 93005; 96360; 99284; 71046; 81003; 83880; 84484; 85025; 85379; 93010; 99283

== ENCOUNTER → 2024-01-04 01:03 | Outpatient (CLI) | payer OTHER, SELFPAY ==
--- NOTE | 2024-01-04 06:15 | ETT_ITS ---
APPROVED REPORT Exam: Exercise Treadmill Patient Location: Out-Patient Room/Bed: Stress Nurse: Saloni Ratliff RN Ordering Provider:RIZWAN SILVA CONNOR, Contact Number: [phone] BMI: 32.85 Baseline Rhythm: Sinus Rhythm Indications: ASCVD, HTN, DM Medical History Medical History: ASSCVD, DM2, HTN, HLD, ED Cardiac Medications: Allopurinol, Atorvastatin, Metoprolol succinate, sildenafil, amlodipine, semaglu tide, dulaglutide, lisinopril, metformin Allergies: NKA Cardiac Risk Factors: Family Hx, HTN, HLD, DM, Former Smoker, Obesity Previous Cardiac Procedures: MARICRUZ x2 2003 Pretest Chest Pain Characteristics: Dizziness Exercise History: Sedentary Physical Disabilities: None Lung Sounds: Clear to auscultation Heart Sounds: Regular Stress Test Details Test: Exercise stress testing was performed using a Anthony protocol. Rest Stress HR Resting HR Supine: 80 bpm Max Heart Rate (APMHR): 158 bpm Resting HR Standin bpm Target HR (85% APMHR): 134 bpm Max HR Achieved: 136 bpm % of APMHR: 86 Recovery HR: 103 bpm HR response to stress: Normal HR response to stress BP Resting BP Supine: 160/92 mmHg Resting BP Standin/94 mmHg Max BP: 192/80 mmHg Recovery BP: 150/92 mmHg BP response to stress: Normal blood pressure response to stress. ECG Resting ECG: Sinus Rhythm Ectopy: PVCs Stress ECG: Sinus Rhythm, Sinus Tachycardia ST Change: Upsloping ST depression Lead(s): II, III, aVF Stage: [address] Deviation: 1 mm Arrhythmia: VPC's Recovery ECG: Sinus Rhythm Recovery ST Change: Horizontal ST depression Lead(s): II, III, aVF Recovery ST Deviation: 1 mm Recovery Arrhythmia: VPC Clinical Reason for Termination: Fatigue Stress Symptoms: Dizziness, chest tightness Exercise duration: 4 min50 sec Highest Stage Reached: Stage 2: 2.5 mph at 12% grade. Exercise capacity: 6.84 METs Angina Score: Non-Limiting Rate Pressure Product: 12344 Stress ECG Conclusion 1. Resting EKG was normal 2. Patient exercised on the Anthony protocol and completed a workload 6.84 METS 3. Normal heart rate and blood pressure response to exercise. Patient achieved 86% of predicted hear t rate for age 4. There was no electrocardiographic evidence of myocardial ischemia 5. There were no significant dysrhythmias Stress Test Summary STAGE Time (mins) Speed (mph) Grade (%) HR BP SpO2 SYMPTOMS METS Supine 80 160/92 98 Standing 95 158/94 1 3 1.7 10 121 180/90 96 4.5 1 min recovery 119 192/80 96 3 min recovery 101 168/90 6 min recovery 103 150/92 Patient experienced mild chest tightness throughout test that resolved with recovery. Held metoprolol for 48 hours before test.
== END ==
PROVIDERS: PCP Nurse Practitioner Family; Visit Provider Nurse Practitioner Family
DX: I25.10 Atherosclerotic heart disease of native coronary artery without angina pectoris (principal); I10 Essential (primary) hypertension; E11.9 Type 2 diabetes mellitus without complications
CPT/HCPCS: 93017

== ENCOUNTER 2024-02-04 17:55 | Outpatient (REF) | payer OTHER, SELFPAY ==
[2024-02-04 21:28] LABS: Anion Gap 13.9 mmol/L (3-11); BUN 31 mg/dL (7-18); CO2 24.1 mmol/L (21.0-32.0); CREATININE 1.4 mg/dL (0.70-1.30); Calcium 9.6 mg/dL (8.5-10.1); Chloride 106 mmol/L (98-107); Estimated GFR 56.83 (mL/min/1.73m2); Glucose 136 mg/dL (74-106); Potassium 4.3 mmol/L (3.5-5.1); Sodium 144 mmol/L (136-145)
== END 2024-02-04 17:56 | disposition home or self-care (01) ==
LOC: LBN 17:55
PROVIDERS: PCP Nurse Practitioner Family; Visit Provider Nurse Practitioner Family
DX: I10 Essential (primary) hypertension (principal)
CPT/HCPCS: 80048

== ENCOUNTER 2024-02-26 12:39 | Outpatient (CLI) | payer OTHER, SELFPAY ==
--- NOTE | 2024-02-26 12:30 | RT.EKG_ITS ---
APPROVED REPORT Exam: Resting ECG Reason for Exam: baseline Patient Location: O HR:83 bpm ECG Measurements Heart Rate 83 AXIS AZ 147 P 35 QRSd 93 QRS 19 QT 351 T -5 QTc 413 Conclusion Sinus rhythm...normal P axis, V-rate 50- 99 Normal Electrocardiogram Baseline wander in lead(s) II,aVR,aVF,V2,V4,V5,V6
== END 2024-02-26 12:40 | disposition home or self-care (01) ==
LOC: DI.CARD 12:40
PROVIDERS: PCP Nurse Practitioner Family; Visit Provider Internal Medicine Cardiovascular Disease
DX: I10 Essential (primary) hypertension (principal)
CPT/HCPCS: 93010

== ENCOUNTER → 2024-03-17 01:40 | Outpatient (CLI) | payer OTHER, SELFPAY ==
--- NOTE | 2024-03-17 07:00 | DI.NM_ITS ---
APPROVED REPORT Exam: Pharmacologic Patient Location: Out-Patient Room/Bed: Stress Nurse: David Vernon RN and Angel Martinez RN Ordering Provider:MALIKA PEGUERO, Contact Number: [phone] BMI: 32.13 Baseline Rhythm: Sinus Rhythm Indications: Coronary Artery Disease; ASCVD; Essential Hypertension Medical History Medical History: Diabetes Mellitus Type 2; Hyperlipidemia; Hypertension; ASCVD; Gout. Cardiac Medications: Allopurinol; Amlodipine; Aspirin; Atorvastatin; Chlorthalidone; Lisinopril; Metf ormin; Metoprolol Succinate; Ozempic; Sildenafil. Allergies: None. Cardiac Risk Factors: Hyperlipidemia; Hypertension; Diabetes; Former Smoker. Previous Cardiac Procedures: Hx of Cardiac Stent. Pretest Chest Pain Characteristics: None. Exercise History: Indeterminate. Physical Disabilities: None. Lung Sounds: Clear bilaterally throughout, anterior and posterior. Heart Sounds: S1/S2. Stress Test Details Test: Pharmacologic stress testing performed using 0.4 mg of regadenoson per 5 mL given IV over 10 s econds. Reason for pharmacologic stress test: physical limitation, pt. reported taking a beta-carissa and r eported dizziness.. Nuclear Acquisition: Rest Tc-99m/Stress Tc-99m 1 day Rest Isotope: Tc-99m Sestamibi. Dose: 10.2 Date: 03/17/2024 Injection Time: 0840 Stress Isotope: Tc-99m Sestamibi. Dose: 32.9 Date: 03/17/2024 Injection Time: 1000 HR Resting HR Supine: 69 bpm Max Heart Rate (APMHR): 157.711586 bpm Target HR (85% APMHR): 133.180417 bpm Max HR Achieved: 88 bpm % of APMHR: 56.05 Recovery HR: 79 bpm HR response to stress: Normal HR response to stress BP Resting BP Supine: 112/72 mmHg Max BP: 112/72 mmHg Recovery BP: 108/72 mmHg BP response to stress: Normal blood pressure response to stress. ECG Resting ECG: Sinus Rhythm Ectopy: None. Stress ECG: Sinus Rhythm ST Change: Nondiagnostic low heart rate Arrhythmia: None. Recovery ECG: Sinus Rhythm Recovery ST Change: Nondiagnostic low heart rate Recovery Arrhythmia: None. Clinical Stress Symptoms: Moderate SOB; Nausea; Headache. Angina Score: None Rate Pressure Product: 9856 Stress ECG Conclusion 1. Resting electrocardiogram was within normal limits 2. Patient underwent testing using pharmacologic stress with regadenoson 3. Peak heart rate achieved was 56% of maximal predicted for age 4. The electrocardiographic portion of the test was nondiagnostic 5. See MPI report Stress Test Summary STAGE HR BP SpO2 Symptoms NOTES Supine 69 112/72 1 min post Lexiscan injection 85 104/58 Moderate SOB; Nausea; Headache. 3 min post Lexiscan injection 85 112/72 98 Pt. reports that symptoms are starting to resolve. 6 min post Lexiscan injection 79 108/72 98 Pt. states all symptoms are resolved. MPI Conclusion Myocardial perfusion is normal. There is no ischemia or evidence of prior infarction Ejection fraction is 55% with normal wall motion Radiologist Interpretation Radiologist agrees with Clinical Medical Transcriptionist's Interpretation. Radiologist Interpretation by: Joseph Cunningham MD Interpretation Date/Time: 03/17/2024 19:10:35
[2024-03-17] MEDS: Regadenoson 0.4 MG/5 ML SYR IVP (09:59)
== END ==
PROVIDERS: PCP Nurse Practitioner Family; Visit Provider Internal Medicine Cardiovascular Disease
DX: I25.10 Atherosclerotic heart disease of native coronary artery without angina pectoris (principal); I10 Essential (primary) hypertension
CPT/HCPCS: 78452; 93017; J2785

== ENCOUNTER 2024-10-28 21:29 | Outpatient (REF) | payer OTHER, SELFPAY ==
[2024-10-28 15:29] LABS: ALT 32 U/L (16-63); AST 19 U/L (15-37); Alkaline Phosphatase 126 U/L (46-116); Anion Gap 11.5 mmol/L (3-11); BUN 44 mg/dL (7-18); Bilirubin, Total 0.55 mg/dL (0.2-1.0); CO2 25.5 mmol/L (21.0-32.0); CREATININE 1.7 mg/dL (0.70-1.30); Calcium 9.1 mg/dL (8.5-10.1); Calculated LDL 86 mg/dL (<100); Chloride 108 mmol/L (98-107); Cholesterol 167 mg/dL (<200); Estimated GFR 44.74 (mL/min/1.73m2); Glucose 130 mg/dL (74-106); HDL Cholesterol 40 mg/dL (40-60); Potassium 4.4 mmol/L (3.5-5.1); Sodium 145 mmol/L (136-145); Total Protein 7.3 g/dL (6.4-8.2); Triglyceride 209 mg/dL (<150)
== END 2024-10-28 21:30 | disposition home or self-care (01) ==
LOC: LBN 21:29
PROVIDERS: PCP Nurse Practitioner Family; Visit Provider Nurse Practitioner Family
DX: E78.5 Hyperlipidemia, unspecified (principal); M10.9 Gout, unspecified; E11.9 Type 2 diabetes mellitus without complications; I25.10 Atherosclerotic heart disease of native coronary artery without angina pectoris
CPT/HCPCS: 80053; 80061

== ENCOUNTER 2025-06-17 16:57 | Outpatient (REF) | payer OTHER, SELFPAY | END 2025-06-17 16:58 | disposition home or self-care (01) | LOC: LBN 16:57 | PROVIDERS: PCP Nurse Practitioner Family; Visit Provider Physician Assistant | DX: J02.9 Acute pharyngitis, unspecified (principal) | CPT/HCPCS: 87070 ==

== ENCOUNTER 2025-06-21 08:00 | Emergency (ER) | payer OTHER, SELFPAY ==
[2025-06-21 08:03] VITALS: BP 145/88; PULSE 90; RESP 18; TEMP 36.4; O2SAT 98
[2025-06-21 08:22] LABS: Glucose Negative (Negative)
--- NOTE | 2025-06-21 08:22 | ED.GENADUL_ITS ---
Discharge Plan Disposition Patient Disposition: Home Discharge Details Clinical Impression: Gross hematuria Primary Care Provider: Fenrando Vidal ED Provider: Malik Zeng Home Meds and New Rx's Prescriptions: Continued sildenafil [Viagra] 50 mg tablet 50 mg PO DAILY PRN (Reason: sexual activity) Qty: 14 0RF Rx Instructions: administer 30 minutes to 4 hours before activity chlorthalidone 25 mg tablet 12.5 mg PO DAILY Qty: 90 3RF allopurinol 300 mg tablet 300 mg PO DAILY Qty: 90 4RF amlodipine 10 mg tablet 10 mg PO DAILY Qty: 90 4RF atorvastatin [Lipitor] 40 mg tablet 40 mg PO DAILY Qty: 90 4RF metformin 500 mg tablet extended release 24hr 500 mg PO DAILY Qty: 90 4RF Rx Instructions: dose decrease nitroglycerin 0.4 mg tablet, sublingual 0.4 mg sublingual Q5M PRN (Reason: chest pain) Qty: 14 0RF Rx Instructions: Take 1 tab at onset of symptoms, repeat every 5 minutes x 3 doses if chest pain persists aspirin 81 mg tablet,delayed release (DR/EC) 81 mg PO DAILY semaglutide 2 mg/dose (8 mg/3 mL) pen injector 2 mg subcut QWEEK Qty: 3 12RF metoprolol succinate 100 mg tablet extended release 24 hr 100 mg PO DAILY Qty: 90 4RF Discharge Instructions Instructions: Blood in Urine (Hematuria), Adult ED Additional Instructions: Please follow-up with your referral to urology as well as primary care provider regarding your visit to the emergency department today. Be sure to discuss results of all test performed here today to include radiology, and laboratory testing as well as results for any pending cultures. Your urine culture will be evaluated for 3 days, if there is any bacterial growth you will be contacted for a prescription of antibiotics. Should your symptoms worsen, or if you develop new concerning symptoms, please return immediately emergency department for further evaluation. This HPI General Date/Time Provider Initiated Documentation: 06/21/25 08:01 . HPI Narrative: MDM/Narrative: 65-year-old male with hematuria, clots initially, bright red blood recently. No significant pain, slight left testicular discomfort. No fever, chills, rashes, penile discharge, or urinary frequency changes. No recent ejaculation abnormalities. History of stent placement. 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 Differential Diagnosis: - Infection: Urine analysis and culture, antibiotics if detected. - Renal calculi: No prior history, no associated pain making this unlikely - Bladder neoplasm: If no obvious cause, will refer to urology for further evaluation. Urine sample collected for analysis. UA shows no evidence of acute infection. Given presence of hematuria will arrange for follow-up urology for further evaluation of gross hematuria. Patient instructed that a urine culture is pending, he will be contacted if antibiotics are indicated. Hematuria likely due to transient inflammation or infection. Follow-up with PCP, possible urologist referral if hematuria persists. Clinical Impression: - Hematuria This document was created with assistance from [employer]. The patient consented to its use. HPI: The patient is a 65-year-old male presenting with hematuria. He initially ob served blood clots in his urine approximately 1.5 weeks ago, which subsequently resolved. However, he noted bright red blood in his urine last night and pinkish urine this morning. He denies experiencing abdominal pain, but reports occasional discomfort in the left testicle. There have been no changes in urinary frequency, and he denies fever, chills, rashes, penile discharge, vomiting, or nausea. His last ejaculation occurred one month ago, with no reported abnormalities. The patient had a cold last week, which was not diagnosed as streptococcal pharyngitis, and he did not require antibiotic therapy. He has a remote history of urinary tract infection (UTI) characterized by dysuria and pain. The patient ceased smoking 25 years ago. 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 He has a history of stent placement and subsequent removal 30 years ago. ROS: Negative besides as mentioned above Exam: Vital signs: Reviewed. General Appearance: Alert and oriented. No acute distress. HEENT: NCAT, EOMI, not icteric. External ears normal. No rhinorrhea. Moist mucous membranes. Neck: Supple, full range of motion, no observable masses, No meningeal sign. Respiratory: No Respiratory distress. No tachypnea. Cardiovascular: RRR, no edema. Gastrointestinal: Abdomen non-tender, no bladder or kidney tenderness. Back: No midline tenderness to palpation or palpable step-offs of the C/T/L spine. Skin: Warm and dry, no rash. Neurological: Normal Gait, Grossly intact. Psychiatric: Appropriate for situation. Labs: 06/21/25 08:08 Urine - Reflex from Ua Urine Culture - Pending Laboratory Tests Range/Units 06/21/25 08:08 Urine Color (Yellow) Red Urine Clarity (Clear) Cloudy Urine pH (5-8) 6.0 Ur Specific [place] (1.005-1.025) 1.020 Urine Protein (Neg-Trace) mg/dL 100 H Urine Ketones (Negative) mg/dL Negative Urine Blood (Negative) Moderate H Urine Nitrite (Negative) Negative Urine Bilirubin (Negative) Negative Urine Urobilinogen (Up to 0.2) mg/dL 0.2 Ur Leukocyte Esterase (Negative) Negative Urine RBC (0-2) HPF >50 H Urine WBC Not Applicable Ur Epithelial Cells Not Applicable Urine Crystals Not Applicable Urine Bacteria Not Applicable Urine Mucus Not Applicable Ur Culture Indicated? Yes Urine Glucose (Negative) mg/dL Negative Related Data Home Medications ?Medication ?Instructions ?Recorded ?Confirmed sildenafil 50 mg tablet (Viagra) 50 mg PO DAILY PRN se xual activity 10/27/23 06/21/25 #14 tabs metformin 500 mg tablet,extended 500 mg PO DAILY #90 t abs 12/28/23 06/21/25 release 24hr (osmotic) aspirin 81 mg tablet,delayed 81 mg PO DAILY 01/07/24 0 06/21/25 release nitroglycerin 0.4 mg sublingual 0.4 mg sublingual Q5M PRN chest 01/07/24 06/21/25 tablet pain #14 tabs chlorthalidone 25 mg tablet 12.5 mg (1/2 x 25 mg) PO D AILY #90 07/26/24 06/21/25 tabs semaglutide 2 mg/dose (8 mg/3 mL) 2 mg (0.75 mL) subcu t QWEEK #3 mL 09/01/24 06/21/25 subcutaneous pen injector allopurinol 300 mg tablet 300 mg PO DAILY #90 tab-caps 10/28/24 06/21/25 amlodipine 10 mg tablet 10 mg PO DAILY #90 tabs 10/1206/21/25 atorvastatin 40 mg tablet (Lipitor) 40 mg PO DAILY #90 tab-caps 10/28/24 06/21/25 metoprolol succinate 100 mg 100 mg PO DAILY #90 tabs 0 06/06/25 06/21/25 tablet,extended release 24 hr Previous Rx's ?Medication ?Instructions ?Recorded sildenafil 50 mg tablet (Viagra) 50 mg PO DAILY PRN se xual activity 10/27/23 #14 tabs metformin 500 mg tablet,extended 500 mg PO DAILY #90 t abs 12/28/23 release 24hr (osmotic) nitroglycerin 0.4 mg sublingual 0.4 mg sublingual Q5M PRN chest 01/07/24 tablet pain #14 tabs chlorthalidone 25 mg tablet 12.5 mg (1/2 x 25 mg) PO D AILY #90 07/26/24 tabs semaglutide 2 mg/dose (8 mg/3 mL) 2 mg (0.75 mL) subcu t QWEEK #3 mL 09/01/24 subcutaneous pen injector allopurinol 300 mg tablet 300 mg PO DAILY #90 tab-caps 10/28/24 amlodipine 10 mg tablet 10 mg PO DAILY #90 tabs 10/12 05/05 atorvastatin 40 mg tablet (Lipitor) 40 mg PO DAILY #90 tab-caps 10/28/24 metoprolol succinate 100 mg 100 mg PO DAILY #90 tabs 0 06/06/25 tablet,extended release 24 hr Allergies Allergy/AdvReac Type Severity Reaction Status Date / Time No Known Allergies Allergy Verified 06/21/25 08:05 General Stated Complaint: Urinary SARAH: 4 Course Vital Signs Vital signs: Vital Signs Temperature 36.4 C L 06/21/25 08:03 Pulse 90 06/21/25 08:03 Respiratory Rate 18 06/21/25 08:03 Blood Pressure 145/88 H 06/21/25 08:03 Pulse Oximetry 98 06/21/25 08:03 Temperature 36.4 C L 06/21/25 08:03 Temperature Source Tympanic 06/21/25 08:03 Pulse 90 06/21/25 08:03 Respiratory Rate 18 06/21/25 08:03 Blood Pressure 145/88 H 06/21/25 08:03 Blood Pressure Position Sitting 06/21/25 08:03 Pulse Oximetry 98 06/21/25 08:03 Oxygen Delivery Method Room Air 06/21/25 08:03 Oxygen Flow Rate 0 06/21/25 08:03 Pain Level 1 06/21/25 08:03 PFSH All Active Problems (Updated 06/21/25 @ 08:29 by Malik Zeng MD) Gross hematuria (Acute) Erectile dysfunction (Acute) Family history of colon cancer (Acute) Adenomatous colon polyp (Acute) Type 2 diabetes mellitus (Acute) ASCVD (arteriosclerotic cardiovascular disease) (Chronic) stent to LAD 2005-has not needed to f/u up with cardiology but does with PCP Gout (Chronic) Inactive right now. 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 states not arthroplasty but arthroscopy History of heart artery stent Family History Mother , age 80 Diabetes Depression Mental disorder Depression Father , age 49 Stomach cancer Lung cancer Brother , age 71 Essential hypertension Hyperlipidemia Colon cancer Prostate cancer Brother Heart disease Son No problems noted. Daughter , age 20 Asthma Hypertension Brother Heart disease Neoplasm COLON Paternal Grandfather Heart disease Hyperlipidemia Cancer Sister , 61 No problems noted. Social History (Updated 10/31/24 @ 12:44 by Naida Viveros) Smoking/Tobacco Use Status: Former Tobacco Use tobacco type: cigarettes and smokeless tobacco Quit Date: 10/12/99 Tobacco: How many years used: 20 Smokeless tobacco user: chewing tobacco and snuff Second Hand Exposure: Yes Smoking risk assessment performed?: Yes Alcohol Intake: current Alcohol Intake frequency: holidays/special occasions only Alcohol type: beer and hard liquor Drug use: Occasionally Substance use type: marijuana Adopted: No Caregiver/Support person: No Household members: significant other Housing: apartment Number of Children: 2 number of grandchildren: 0 Communication Needs: None Education Level: high school Do you need help understanding health information?: Rarely 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 Pets and animals: No Sexually active: Yes Do you think of yourself as: straight/heterosexual Current gender identity: male What is your relationship status?: How often do you talk on the phone with friends or family?: three or more times per week How often do you get together with friends or relatives?: twice per week How often do you attend adventist or jehovah's witness services?: 1-3 times per year Do you belong to any clubs or organized social groups?: yes Panel score (0-1 are the most socially isolated patients): 2 What type of physical activity do you participate in: walking and other Details: golf Duration: 30-45 minutes/day Frequency: 1-2 times per week Special jaime needs: No Agree to transfusion: Yes Seatbelt use: sometimes Helmet use: Yes Helmet use: sometimes Drive intox or ride w/intox certified driver examiner: No Working smoke detector in home: Yes Carbon monox detector in home: Yes Firearms in home: No Do you feel safe at home: Yes Do you feel safe in your relationship?: Yes Victim of physical abuse: No Victim of emotional abuse: No Victim of sexual abuse: No
[2025-06-21 08:25] LABS: C & S Indicated? Yes; RBC >50 HPF (0-2)
== END 2025-06-21 08:44 | disposition home or self-care (01) ==
PROVIDERS: Emergency Provider General Practice; PCP Nurse Practitioner Family
DX: R31.0 Gross hematuria (principal)
CPT/HCPCS: 99283; 99282; 81003; 81015; 87086

== ENCOUNTER 2025-06-26 14:59 | Emergency (ER) | payer OTHER, SELFPAY ==
[2025-06-26 15:09] VITALS: BP 133/82; PULSE 87; RESP 18; TEMP 36.6; O2SAT 98
--- NOTE | 2025-06-26 17:00 | DI.CT_ITS ---
Exam(s) CT RENAL COLIC WO EXAM: CT RENAL COLIC WO CLINICAL HISTORY: hematuria with left testicular pain. TECHNIQUE: Imaging Protocol: Axial computed tomography images with coronal and sagittal reformatted images were created and reviewed CONTRAST MATERIAL: Intravenous: none Oral: None COMPARISON: CT,NM,TMT NM MPI REST STRESS GRP from 03/17/2024 FINDINGS: VISUALIZED LUNG BASES: No nodules nor pleural effusions evident. ABDOMEN: There is no ascites. LIVER: Hypodense implying steatosis. There no obvious discrete focal hepatic lesions evident on this non few study. GALLBLADDER/BILIARY: No obvious gallbladder pathology. CBD is not dilated. PANCREAS: No evidence of pancreatic mass nor dilatation of the pancreatic duct. SPLEEN: Spleen is not enlarged. No obvious intrasplenic lesions. ADRENALS: There are no significant adrenal masses. KIDNEYS:There is a round 1.5 x 1.3 cm exophytic nodule off the medial cortex of the right kidney which contains a small 1-2 mm mural calcification. This nodule averages density units slightly above typical cyst. No other focal findings in the right kidney and no significant findings in the left kidney. There is no hydronephrosis nor hydroureter on either side.. ABDOMINAL AORTA: Abdominal aorta is not enlarged. LYMPH NODES: There is no retroperitoneal nor paraaortic adenopathy. ABDOMINAL WALL: No evidence of significant anterior abdominal wall nor inguinal hernia. GI: There is no evidence of bowel obstruction, free air, nor abscess. PELVIS: LYMPH NODES: There is no intrapelvic nor inguinal adenopathy. GI: No evidence of appendicitis.No evidence of sigmoid diverticulitis. URINARY BLADDER: There is prominent abnormal density in the lumen of the urinary bladder which is suspicious for malignancy, intraluminal clot, or a combination there of. There are no radiopaque calculi seen in the urinary bladder lumen nor within the nondilated pelvic ureters. REPRODUCTIVE: Prostate size is minimally prominent, measuring 4.5 cm wide. Seminal vesicles appear unremarkable. Right hydrocele noted. Left hemiscrotum not included in field of view. OSSEOUS: No fractures. No disc space narrowing but there is multilevel facet arthropathy. No listhesis. IMPRESSION: 1. The main finding here is prominent abnormal density in the urinary bladder lumen which is suspicious for malignancy, clot, or a combination of both. There are no radiopaque calculi in the bladder lumen and there are no radiopaque calculi in the kidneys and nondilated ureters. 2. There is a 15 x 13 mm exophytic nodule off the medial cortex of the right kidney which also exhibits a single small mural calcification. This may not be a simple cyst. Recommend follow-up ultrasound. 3. Mildly prominent prostate gland. Right hydrocele. Report called by myself to ER physician 06/26/2025 at 6:04 p.m. RADIATION DOSE DELIVERED: 790.36mGy.cm Total DLP DATA REPOSITORY: All CT scans at this facility are submitted to the National Radiology Data Registry (NRDR) Dose Index Registry (DIR) with the [employer] (ACR). RADIATION OPTIMIZATION: All CT scans at this facility use at least one of these dose optimization techniques: automated exposure control; mA and/or kV adjustment per patient size (includes targeted exams where dose is matched to clinical indication); or iterative reconstruction.
[2025-06-26 17:50] LABS: Glucose Negative (Negative)
[2025-06-26 17:53] LABS: C & S Indicated? Yes; RBC >50 HPF (0-2)
[2025-06-26 17:54] LABS: Abs Immature Grans 0.05 10^3/uL (0.0-0.06); HCT 39.1 % (40.0-50.0); HGB 12.9 g/dL (13.5-17.5); Immature Grans % 0.6 %; MCH 26.7 pg (27.0-33.0); MCHC 33.0 % (32.0-36.0); MCV 81 fL (80-95); MPV 8.9 fL (8.0-11.0); Platelet Count 258 10^3/uL (130-400); RBC 4.83 10^6/uL (4.36-5.78); RDW 13.5 % (11.8-14.1); RDW-SD 39.2 fL; WBC 7.72 10^3/uL (4.4-10.8)
[2025-06-26 18:07] LABS: INR 1.0 (0.9-1.1); PTT Activated 25.2 sec (20.6-30.2); Prothrombin Time 10.4 sec (9.1-11.1)
[2025-06-26 18:09] LABS: ALT 35 U/L (16-63); AST 14 U/L (15-37); Albumin 3.8 g/dL (3.4-5.0); Alkaline Phosphatase 117 U/L (46-116); Anion Gap 8.3 mmol/L (3-11); BUN 25 mg/dL (7-18); Bilirubin, Total 0.3 mg/dL (0.2-1.0); CO2 27.7 mmol/L (21.0-32.0); Calcium 9.0 mg/dL (8.5-10.1); Chloride 106 mmol/L (98-107); Estimated GFR 47.82 (mL/min/1.73m2); Glucose 141 mg/dL (74-106); Potassium 4.0 mmol/L (3.5-5.1); Sodium 142 mmol/L (136-145); Total Protein 7.2 g/dL (6.4-8.2)
--- NOTE | 2025-06-26 18:09 | ED.GENADUL_ITS ---
Discharge Plan Disposition Patient Disposition: Home Discharge Details Clinical Impression: Hematuria, Dysuria, Nodule of kidney, Gross hematuria Primary Care Provider: Fernando Vidal ED Provider: Malik Zeng Home Meds and New Rx's Prescriptions: New cefdinir 300 mg capsule 300 mg PO BID Qty: 14 0RF phenazopyridine [Pyridium] 200 mg tablet 200 mg PO QPC Qty: 6 0RF No Action sildenafil [Viagra] 50 mg tablet 50 mg PO DAILY PRN (Reason: sexual activity) Qty: 14 0RF Rx Instructions: administer 30 minutes to 4 hours before activity chlorthalidone 25 mg tablet 12.5 mg PO DAILY Qty: 90 3RF allopurinol 300 mg tablet 300 mg PO DAILY Qty: 90 4RF amlodipine 10 mg tablet 10 mg PO DAILY Qty: 90 4RF atorvastatin [Lipitor] 40 mg tablet 40 mg PO DAILY Qty: 90 4RF metformin 500 mg tablet extended release 24hr 500 mg PO DAILY Qty: 90 4RF Rx Instructions: dose decrease nitroglycerin 0.4 mg tablet, sublingual 0.4 mg sublingual Q5M PRN (Reason: chest pain) Qty: 14 0RF Rx Instructions: Take 1 tab at onset of symptoms, repeat every 5 minutes x 3 doses if chest pain persists aspirin 81 mg tablet,delayed release (DR/EC) 81 mg PO DAILY semaglutide 2 mg/dose (8 mg/3 mL) pen injector 2 mg subcut QWEEK Qty: 3 12RF metoprolol succinate 100 mg tablet extended release 24 hr 100 mg PO DAILY Qty: 90 4RF Discharge Instructions Instructions: Blood in Urine (Hematuria), Adult ED, Dysuria (ED) Additional Instructions: As discussed it is important that you follow-up with urology regarding your symptoms. Although with your positive nitrates in your urine this may represent a urinary tract infection, your CT scan is more concerning that there might be blood clots, a mass or both inside of your bladder. Please follow-up with your primary care provider regarding your visit to the emergency department today. Be sure to discuss results of all test performed here today to include radiolog, and laboratory testing as well as results for any pending cultures. Of note there was a renal nodule seen on your right ki dney that is recommended given a follow-up ultrasound for. Should your symptoms worsen, or if you develop new concerning symptoms, please return immediately emergency department for further evaluation. Discharge Data Discharge Date/Time-TO BE ENTERED AT DEPARTURE: 06/26/25 18:49 HPI General Date/Time Provider Initiated Documentation: 06/26/25 15:03 . HPI Narrative: MDM/Narrative: 65-year-old male with recurrent hematuria, new dysuria, and left testicular pain. Differential Diagnosis: - Complicated UTI: Treated with ceftriaxone, started on cefdinir. - Urinary obstruction: Ruled out by CT. - Infected kidney stone: Ruled out by CT. - Bladder clot/mass: CT shows clot/mass in bladder lumen. Follow up with urology. - Renal nodule: Right-sided renal nodule on CT. Follow up required. ED Course: - Urinalysis: Nitrites present. - Ceftriaxone administered. - CT renal stone: No stone; clot/mass in bladder lumen; right-sided renal nodule identified. - Cefdinir prescribed. Final Assessment: Treated for complicated UTI with ceftriaxone and cefdinir. CT ruled out urinary obstruction and infected kidney stone, identified bladder clot/mass and right-sided renal nodule. Clinical Impression: - Complicated UTI - Bladder clot/mass - Right-sided renal nodule Disposition: - Discharge: Home, follow up with urology on 07/13/2025. This document was created with assistance from [employer]. The patient consented to its use. HPI: The patient is a 65-year-old male with a history of recurrent hematuria. He was evaluated in the emergency department three days ago for asymptomatic hematuria, with urinalysis results indicating no acute infection. He was discharged with instructions to follow up with urology on 07/13/2025. Last night, at approximately 2200 hours, the patient developed left testicular pain, dysuria, and worsening hematuria. He reports no associated fever, chills, or other new symptoms. ROS: Negative besides as mentioned above Exam: Vital signs: Reviewed. General Appearance: Alert and oriented. No acute distress. HEENT: NCAT, EOMI, not icteric. External ears normal. No rhinorrhea. Moist mucous membranes. Neck: Supple, full range of motion, no observable masses, No meningeal sign. Respiratory: No Respiratory distress. No tachypnea. Cardiovascular: RRR, no edema. Gastrointestinal: Soft, nondistended, No rebound tenderness. Genitourinary: Genitourinary exam is normal. Back: No midline tenderness to palpation or palpable step-offs of the C/T/L spine. Skin: Warm and dry, no rash. Neurological: Normal Gait, Grossly intact. Psychiatric: Appropriate for situation. Labs: 06/26/25 16:20 Urine - Reflex from Ua Urine Culture - Pending Laboratory Tests Range/Units 06/26/25 06/26/25 16:20 17:26 WBC (4.4-10.8) 10^3/uL 7.72 RBC (4.36-5.78) 10^6/uL 4.83 Hgb (13.5-17.5) g/dL 12.9 L Hct (40.0-50.0) % 39.1 L MCV (80-95) fL 81 MCH (27.0-33.0) pg 26.7 L MCHC (32.0-36.0) % 33.0 RDW (11.8-14.1) % 13.5 Plt Count (130-400) 10^3/uL 258 MPV (8.0-11.0) fL 8.9 Immature Gran % % 0.6 Neutrophils % % 55.9 Lymphocytes % % 30.1 Monocytes % % 8.9 Eosinophils % % 3.9 Basophils % % 0.6 Nucleated RBC % (0.0-0.3) % 0.0 Absolute Neutrophils (1.2-6.7) 10^3/uL 4.31 Absolute Lymphocytes (1.2-3.4) 10^3/uL 2.32 Absolute Monocytes (0.1-0.8) 10^3/uL 0.69 Absolute Eosinophils (0.0-0.7) 10^3/uL 0.30 Absolute Basophils (0.0-0.2) 10^3/uL 0.05 PT (9.1-11.1) sec 10.4 INR (0.9-1.1) 1.0 APTT (20.6-30.2) sec 25.2 Sodium (136-145) mmol/L 142 Potassium (3.5-5.1) mmol/L 4.0 Chloride (98-107) mmol/L 106 Carbon Dioxide (21.0-32.0) mmol/L 27.7 Anion Gap (3-11) mmol/L 8.3 BUN (7-18) mg/dL 25 H Creatinine (0.70-1.30) mg/dL 1.6 H Est GFR (CKD-EPI 2020) (mL/min/1.73m2) 47.82 Glucose (74-106) mg/dL 141 H Calcium (8.5-10.1) mg/dL 9.0 Total Bilirubin (0.2-1.0) mg/dL 0.3 AST (15-37) U/L 14 L ALT (16-63) U/L 35 Alkaline Phosphatase (46-116) U/L 117 H Total Protein (6.4-8.2) g/dL 7.2 Albumin (3.4-5.0) g/dL 3.8 Urine Color (Yellow) Red Urine Clarity (Clear) Turbid Urine pH (5-8) 6.5 Ur Specific Hyden (1.005-1.025) 1.025 Urine Protein (Neg-Trace) mg/dL >=300 H Urine Ketones (Negative) mg/dL Negative Urine Blood (Negative) Large H Urine Nitrite (Negative) Positive H Urine Bilirubin (Negative) Negative Urine Urobilinogen (Up to 0.2) mg/dL 0.2 Ur Leukocyte Esterase (Negative) Negative Urine RBC (0-2) HPF >50 H Urine WBC Not Applicable Ur Epithelial Cells Not Applicable Urine Crystals Not Applicable Urine Bacteria Not Applicable Urine Mucus Not Applicable Ur Culture Indicated? Yes Urine Glucose (Negative) mg/dL Negative ABO/Rh O Positive Antibody Screen NEGATIVE Radiology: Exam(s) CT RENAL COLIC WO EXAM: CT RENAL COLIC WO CLINICAL HISTORY: hematuria with left testicular pain. TECHNIQUE: Imaging Protocol: Axial computed tomography images with coronal and sagittal reformatted images were created and reviewed CONTRAST MATERIAL: Intravenous: none Oral: None COMPARISON: CT,NM,TMT NM MPI REST STRESS GRP from 03/17/2024 FINDINGS: VISUALIZED LUNG BASES: No nodules nor pleural effusions evident. ABDOMEN: There is no ascites. LIVER: Hypodense implying steatosis. There no obvious discrete focal hepatic lesions evident on this non few study. GALLBLADDER/BILIARY: No obvious gallbladder pathology. CBD is not dilated. PANCREAS: No evidence of pancreatic mass nor dilatation of the pancreatic duct. SPLEEN: Spleen is not enlarged. No obvious intrasplenic lesions. ADRENALS: There are no significant adrenal masses. KIDNEYS:There is a round 1.5 x 1.3 cm exophytic nodule off the medial cortex of the right kidney which contains a small 1-2 mm mural calcification. This nodule averages density units slightly above typical cyst. No other focal findings in the right kidney and no significant findings in the left kidney. There is no hydronephrosis nor hydroureter on either side.. ABDOMINAL AORTA: Abdominal aorta is not enlarged. LYMPH NODES: There is no retroperitoneal nor paraaortic adenopathy. ABDOMINAL WALL: No evidence of significant anterior abdominal wall nor inguinal hernia. GI: There is no evidence of bowel obstruction, free air, nor abscess. PELVIS: LYMPH NODES: There is no intrapelvic nor inguinal adenopathy. GI: No evidence of appendicitis.No evidence of sigmoid diverticulitis. URINARY BLADDER: There is prominent abnormal density in the lumen of the urinary bladder which is suspicious for malignancy, intraluminal clot, or a combination there of. There are no radiopaque calculi seen in the urinary bladder lumen nor within the nondilated pelvic ureters. REPRODUCTIVE: Prostate size is minimally prominent, measuring 4.5 cm wide. Seminal vesicles appear unremarkable. Right hydrocele noted. Left hemiscrotum not included in field of view. OSSEOUS: No fractures. No disc space narrowing but there is multilevel facet arthropathy. No listhesis. IMPRESSION: 1. The main finding here is prominent abnormal density in the urinary bladder lumen which is suspicious for malignancy, clot, or a combination of both. There are no radiopaque calculi in the bladder lumen and there are no radiopaque calculi in the kidneys and nondilated ureters. 2. There is a 15 x 13 mm exophytic nodule off the medial cortex of the right kidney which also exhibits a single small mural calcification. This may not be a simple cyst. Recommend follow-up ultrasound. 3. Mildly prominent prostate gland. Right hydrocele. Report called by myself to ER physician 06/26/2025 at 6:04 p.m. Related Data Home Medications ?Medication ?Instructions ?Recorded ?Confirmed sildenafil 50 mg tablet (Viagra) 50 mg PO DAILY PRN se xual activity 10/27/23 06/26/25 #14 tabs metformin 500 mg tablet,extended 500 mg PO DAILY #90 t abs 12/28/23 06/26/25 release 24hr (osmotic) aspirin 81 mg tablet,delayed 81 mg PO DAILY 01/07/24 0 06/26/25 release nitroglycerin 0.4 mg sublingual 0.4 mg sublingual Q5M PRN chest 01/07/24 06/26/25 tablet pain #14 tabs chlorthalidone 25 mg tablet 12.5 mg (1/2 x 25 mg) PO D AILY #90 07/26/24 06/26/25 tabs semaglutide 2 mg/dose (8 mg/3 mL) 2 mg (0.75 mL) subcu t QWEEK #3 mL 09/01/24 06/26/25 subcutaneous pen injector allopurinol 300 mg tablet 300 mg PO DAILY #90 tab-caps 10/28/24 06/26/25 amlodipine 10 mg tablet 10 mg PO DAILY #90 tabs 10/1206/26/25 atorvastatin 40 mg tablet (Lipitor) 40 mg PO DAILY #90 tab-caps 10/28/24 06/26/25 metoprolol succinate 100 mg 100 mg PO DAILY #90 tabs 0 06/06/25 06/26/25 tablet,extended release 24 hr cefdinir 300 mg capsule 300 mg PO BID #14 caps 06/26 phenazopyridine 200 mg tablet 200 mg PO QPC 6 doses #6 tabs 06/26/25 (Pyridium) Previous Rx's ?Medication ?Instructions ?Recorded sildenafil 50 mg tablet (Viagra) 50 mg PO DAILY PRN se xual activity 10/27/23 #14 tabs metformin 500 mg tablet,extended 500 mg PO DAILY #90 t abs 12/28/23 release 24hr (osmotic) nitroglycerin 0.4 mg sublingual 0.4 mg sublingual Q5M PRN chest 01/07/24 tablet pain #14 tabs chlorthalidone 25 mg tablet 12.5 mg (1/2 x 25 mg) PO D AILY #90 07/26/24 tabs semaglutide 2 mg/dose (8 mg/3 mL) 2 mg (0.75 mL) subcu t QWEEK #3 mL 09/01/24 subcutaneous pen injector allopurinol 300 mg tablet 300 mg PO DAILY #90 tab-caps 10/28/24 amlodipine 10 mg tablet 10 mg PO DAILY #90 tabs 10/12 05/05 atorvastatin 40 mg tablet (Lipitor) 40 mg PO DAILY #90 tab-caps 10/28/24 metoprolol succinate 100 mg 100 mg PO DAILY #90 tabs 0 06/06/25 tablet,extended release 24 hr cefdinir 300 mg capsule 300 mg PO BID #14 caps 06/26 phenazopyridine 200 mg tablet 200 mg PO QPC 6 doses #6 tabs 06/26/25 (Pyridium) Allergies Allergy/AdvReac Type Severity Reaction Status Date / Time No Known Allergies Allergy Verified 06/26/25 15:12 General Stated Complaint: Urinary SARAH: 3 Course Vital Signs Vital signs: Vital Signs Temperature 36.6 C 06/26/25 15:09 Pulse 87 06/26/25 15:09 Respiratory Rate 18 06/26/25 15:09 Blood Pressure 133/82 06/26/25 15:09 Pulse Oximetry 98 06/26/25 15:09 Temperature 36.6 C 06/26/25 15:09 Temperature Source Oral 06/26/25 15:09 Pulse 87 06/26/25 15:09 Respiratory Rate 18 06/26/25 15:09 Respiratory Effort Normal 06/26/25 17:35 Respiratory Depth Normal 06/26/25 17:35 Respiratory Pattern Normal 06/26/25 17:35 Blood Pressure 133/82 06/26/25 15:09 Pulse Oximetry 98 06/26/25 15:09 Oxygen Delivery Method Room Air 06/26/25 17:35 Oxygen Flow Rate 0 06/26/25 17:35 Pain Level 0 06/26/25 17:35 Lab/Test Results Lab/Test Results: 06/26/25 16:20 Urine - Reflex from Ua Urine Culture - Pending Laboratory Tests Range/Units 06/26/25 06/26/25 16:20 17:26 WBC (4.4-10.8) 10^3/uL 7.72 RBC (4.36-5.78) 10^6/uL 4.83 Hgb (13.5-17.5) g/dL 12.9 L Hct (40.0-50.0) % 39.1 L MCV (80-95) fL 81 MCH (27.0-33.0) pg 26.7 L MCHC (32.0-36.0) % 33.0 RDW (11.8-14.1) % 13.5 Plt Count (130-400) 10^3/uL 258 MPV (8.0-11.0) fL 8.9 Immature Gran % % 0.6 Neutrophils % % 55.9 Lymphocytes % % 30.1 Monocytes % % 8.9 Eosinophils % % 3.9 Basophils % % 0.6 Nucleated RBC % (0.0-0.3) % 0.0 Absolute Neutrophils (1.2-6.7) 10^3/uL 4.31 Absolute Lymphocytes (1.2-3.4) 10^3/uL 2.32 Absolute Monocytes (0.1-0.8) 10^3/uL 0.69 Absolute Eosinophils (0.0-0.7) 10^3/uL 0.30 Absolute Basophils (0.0-0.2) 10^3/uL 0.05 Urine Color (Yellow) Red Urine Clarity (Clear) Turbid Urine pH (5-8) 6.5 Ur Specific Hyden (1.005-1.025) 1.025 Urine Protein (Neg-Trace) mg/dL >=300 H Urine Ketones (Negative) mg/dL Negative Urine Blood (Negative) Large H Urine Nitrite (Negative) Positive H Urine Bilirubin (Negative) Negative Urine Urobilinogen (Up to 0.2) mg/dL 0.2 Ur Leukocyte Esterase (Negative) Negative Urine RBC (0-2) HPF >50 H Urine WBC Not Applicable Ur Epithelial Cells Not Applicable Urine Crystals Not Applicable Urine Bacteria Not Applicable Urine Mucus Not Applicable Ur Culture Indicated? Yes Urine Glucose (Negative) mg/dL Negative PFSH All Active Problems (Updated 06/26/25 @ 18:11 by Malik Zeng MD) Nodule of kidney (Acute) Dysuria (Acute) Hematuria (Acute) Gross hematuria (Acute) Erectile dysfunction (Acute) Family history of colon cancer (Acute) Adenomatous colon polyp (Acute) Type 2 diabetes mellitus (Acute) ASCVD (arteriosclerotic cardiovascular disease) (Chronic) stent to LAD 2005-has not needed to f/u up with cardiology but does with PCP Gout (Chronic) Inactive right now. 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 states not arthroplasty but arthroscopy History of heart artery stent Family History Mother , age 80 Diabetes Depression Mental disorder Depression Father , age 49 Stomach cancer Lung cancer Brother , age 71 Essential hypertension Hyperlipidemia Colon cancer Prostate cancer Brother Heart disease Son No problems noted. Daughter , age 20 Asthma Hypertension Brother Heart disease Neoplasm COLON Paternal Grandfather Heart disease Hyperlipidemia Cancer Sister , 61 No problems noted. Social History (Updated 10/31/24 @ 12:44 by Niada Viveros) Smoking/Tobacco Use Status: Former Tobacco Use tobacco type: cigarettes and smokeless tobacco Quit Date: 10/12/99 Tobacco: How many years used: 20 Smokeless tobacco user: chewing tobacco and snuff Second Hand Exposure: Yes Smoking risk assessment performed?: Yes Alcohol Intake: current Alcohol Intake frequency: holidays/special occasions only Alcohol type: beer and hard liquor Drug use: Occasionally Substance use type: marijuana Adopted: No Caregiver/Support person: No Household members: significant other Housing: apartment Number of Children: 2 number of grandchildren: 0 Communication Needs: None Education Level: high school Do you need help understanding health information?: Rarely 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 Pets and animals: No Sexually active: Yes Do you think of yourself as: straight/heterosexual Current gender identity: male What is your relationship status?: How often do you talk on the phone with friends or family?: three or more times per week How often do you get together with friends or relatives?: twice per week How often do you attend catholic or holiness services?: 1-3 times per year Do you belong to any clubs or organized social groups?: yes Panel score (0-1 are the most socially isolated patients): 2 What type of physical activity do you participate in: walking and other Details: golf Duration: 30-45 minutes/day Frequency: 1-2 times per week Special jaime needs: No Agree to transfusion: Yes Seatbelt use: sometimes Helmet use: Yes Helmet use: sometimes Drive intox or ride 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
[2025-06-26 18:15] VITALS: BP 124/71; PULSE 78; RESP 16; TEMP 36.1; O2SAT 97
[2025-06-26] MEDS: cefTRIAXone 1 GM/50 ML BAG IVPB (18:15)
== END 2025-06-26 18:49 | disposition home or self-care (01) ==
PROVIDERS: Emergency Provider General Practice; PCP Nurse Practitioner Family
DX: R30.0 Dysuria (principal); N28.89 Other specified disorders of kidney and ureter; R31.0 Gross hematuria; I25.10 Atherosclerotic heart disease of native coronary artery without angina pectoris; E78.5 Hyperlipidemia, unspecified; I10 Essential (primary) hypertension; E11.9 Type 2 diabetes mellitus without complications; Z95.5 Presence of coronary angioplasty implant and graft; Z79.84 Long term (current) use of oral hypoglycemic drugs; Z79.82 Long term (current) use of aspirin; Z79.85 Long-term (current) use of injectable non-insulin antidiabetic drugs; Z87.891 Personal history of nicotine dependence
CPT/HCPCS: 80053; 86850; 86900; 86901; 96365; 99284; 74176; 81003; 81015; 85025; 85610; 85730; 87086; J0696

== ENCOUNTER 2025-07-04 03:09 | Observation (INO) | payer OTHER, SELFPAY ==
[2025-07-04] VITALS (38 sets, daily range): BP systolic 96–143; BP diastolic 58–107; PULSE 60–133; RESP 8–20; TEMP 36.1–37.2; O2SAT 91–99; BMI 31.5
--- NOTE | 2025-07-04 03:22 | ED.GENADUL_ITS ---
Discharge Plan Disposition Patient Disposition: Admit to [facility] Condition: Stable Discharge Details Clinical Impression: Clot retention of urine, Gross hematuria Primary Care Provider: Fernando Vidal ED Provider: Aaron Bah Lacassine Meds and New Rx's Prescriptions: No Action sildenafil [Viagra] 50 mg tablet 50 mg PO DAILY PRN (Reason: sexual activity) Qty: 14 0RF Rx Instructions: administer 30 minutes to 4 hours before activity chlorthalidone 25 mg tablet 12.5 mg PO DAILY Qty: 90 3RF allopurinol 300 mg tablet 300 mg PO DAILY Qty: 90 4RF amlodipine 10 mg tablet 10 mg PO DAILY Qty: 90 4RF atorvastatin [Lipitor] 40 mg tablet 40 mg PO DAILY Qty: 90 4RF metformin 500 mg tablet extended release 24hr 500 mg PO DAILY Qty: 90 4RF Rx Instructions: dose decrease nitroglycerin 0.4 mg tablet, sublingual 0.4 mg sublingual Q5M PRN (Reason: chest pain) Qty: 14 0RF Rx Instructions: Take 1 tab at onset of symptoms, repeat every 5 minutes x 3 doses if chest pain persists aspirin 81 mg tablet,delayed release (DR/EC) 81 mg PO DAILY semaglutide 2 mg/dose (8 mg/3 mL) pen injector 2 mg subcut QWEEK Qty: 3 12RF metoprolol succinate 100 mg tablet extended release 24 hr 100 mg PO DAILY Qty: 90 4RF cefdinir 300 mg capsule 300 mg PO BID Qty: 14 0RF phenazopyridine [Pyridium] 200 mg tablet 200 mg PO QPC Qty: 6 0RF HPI General Mode of arrival: ambulatory . Date/Time Provider Initiated Documentation: 07/04/25 03:22 . Limitations to Documentation: no limitations . Information obtained by: patient, RN notes reviewed and old records reviewed . HPI Narrative: Patient presents to ED with inability to urinate. Patient presented to the ED on the with some hematuria. Return visit on the with worse hematuria and clots. Has appointment with Dr. Torres this afternoon at 1 PM. Has continued to have clots and hematuria but has been unable to urinate at all since this evening. Presents now with extreme suprapubic discomfort and inability to urinate. Denies any fever, nausea, vomiting, back pain. Related Data Home Medications ?Medication ?Instructions ?Recorded ?Confirmed sildenafil 50 mg tablet (Viagra) 50 mg PO DAILY PRN se xual activity 10/27/23 07/04/25 #14 tabs metformin 500 mg tablet,extended 500 mg PO DAILY #90 t abs 12/28/23 07/04/25 release 24hr (osmotic) aspirin 81 mg tablet,delayed 81 mg PO DAILY 01/07/24 0 07/04/25 release nitroglycerin 0.4 mg sublingual 0.4 mg sublingual Q5M PRN chest 01/07/24 07/04/25 tablet pain #14 tabs chlorthalidone 25 mg tablet 12.5 mg (1/2 x 25 mg) PO D AILY #90 07/26/24 07/04/25 tabs semaglutide 2 mg/dose (8 mg/3 mL) 2 mg (0.75 mL) subcu t QWEEK #3 mL 09/01/24 07/04/25 subcutaneous pen injector allopurinol 300 mg tablet 300 mg PO DAILY #90 tab-caps 10/28/24 07/04/25 amlodipine 10 mg tablet 10 mg PO DAILY #90 tabs 10/1207/04/25 atorvastatin 40 mg tablet (Lipitor) 40 mg PO DAILY #90 tab-caps 10/28/24 07/04/25 metoprolol succinate 100 mg 100 mg PO DAILY #90 tabs 0 06/06/25 07/04/25 tablet,extended release 24 hr cefdinir 300 mg capsule 300 mg PO BID #14 caps 06/2607/04/25 phenazopyridine 200 mg tablet 200 mg PO QPC 6 doses #6 tabs 06/26/25 07/04/25 (Pyridium) Previous Rx's ?Medication ?Instructions ?Recorded sildenafil 50 mg tablet (Viagra) 50 mg PO DAILY PRN se xual activity 10/27/23 #14 tabs metformin 500 mg tablet,extended 500 mg PO DAILY #90 t abs 12/28/23 release 24hr (osmotic) nitroglycerin 0.4 mg sublingual 0.4 mg sublingual Q5M PRN chest 01/07/24 tablet pain #14 tabs chlorthalidone 25 mg tablet 12.5 mg (1/2 x 25 mg) PO D AILY #90 07/26/24 tabs semaglutide 2 mg/dose (8 mg/3 mL) 2 mg (0.75 mL) subcu t QWEEK #3 mL 09/01/24 subcutaneous pen injector allopurinol 300 mg tablet 300 mg PO DAILY #90 tab-caps 10/28/24 amlodipine 10 mg tablet 10 mg PO DAILY #90 tabs 10/12 05/05 atorvastatin 40 mg tablet (Lipitor) 40 mg PO DAILY #90 tab-caps 10/28/24 metoprolol succinate 100 mg 100 mg PO DAILY #90 tabs 0 06/06/25 tablet,extended release 24 hr cefdinir 300 mg capsule 300 mg PO BID #14 caps 06/26 phenazopyridine 200 mg tablet 200 mg PO QPC 6 doses #6 tabs 06/26/25 (Pyridium) Allergies Allergy/AdvReac Type Severity Reaction Status Date / Time No Known Allergies Allergy Verified 07/04/25 03:18 General SARAH: 3 Exam Narrative Exam Narrative: Const: WDWN male in obvous discomfort. VS per triage. HEENT: NC/AT. Normal facial exam. Neck: Supple. Trachea midline. Lungs: Normal respiratory effort. Lungs are clear. Cor: RRR without murmur. Good radial pulses. GI: Soft/ND. Tender over the suprapubic area. Neuro: A+O x 3. Normal speech, mentation, gait. Cranial nerves II - XII grossly intact. No gross motor or sensory deficit. Medical Decision Making Given history of hematuria with clots and inability to urinate at this time likely has obstruction related to clot. Have discussed placing three-way Munroe with him and nursing. Will plan irrigation and CBI once in place. Previous coags have been normal. He just finished antibiotics yesterday for presumed in fection. Urine culture done on the with gram-positive arvind, less than 10,000 CFU. Urine culture done on the negative. CT scan done on his second ED visit did show a renal nodule. It also showed urinary bladder with abnormal density suggestive of possible malignancy versus clot versus both. Will obtain a repeat CBC and BMP tonight. Patient's hemoglobin continues to fall slowly. Kidney function remains stable since initial presentation to the ED. Munroe catheter was placed. And irrigation and CBI throughout the morning hours. Discussed with Dr. Torres and patient seen in the ED by Dr. Torres. Plan will be for patient to go to the OR later today for cystoscopy. Patient aware of plan and in agreement with same. Medical Records Medical records reviewed: Yes I reviewed the patient's medical records. Lab Data Lab results reviewed: Yes I reviewed the patient's lab results. Lab results narrative: see MDM PFSH All Active Problems (Updated 07/04/25 @ 07:27 by Aaron Bah MD) Clot retention of urine (Acute) Nodule of kidney (Acute) Dysuria (Acute) Hematuria (Acute) Gross hematuria (Acute) Erectile dysfunction (Acute) Family history of colon cancer (Acute) Adenomatous colon polyp (Acute) Type 2 diabetes mellitus (Acute) ASCVD (arteriosclerotic cardiovascular disease) (Chronic) stent to LAD 2005-has not needed to f/u up with cardiology but does with PCP Gout (Chronic) Inactive right now. 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 states not arthroplasty but arthroscopy History of heart artery stent Family History Mother , age 80 Diabetes Depression Mental disorder Depression Father , age 49 Stomach cancer Lung cancer Brother , age 71 Essential hypertension Hyperlipidemia Colon cancer Prostate cancer Brother Heart disease Son No problems noted. Daughter , age 20 Asthma Hypertension Brother Heart disease Neoplasm COLON Paternal Grandfather Heart disease Hyperlipidemia Cancer Sister , 61 No problems noted. Social History Smoking/Tobacco Use Status: Former Tobacco Use tobacco type: cigarettes and smokeless tobacco Quit Date: 10/12/99 Tobacco: How many years used: 20 Smokeless tobacco user: chewing tobacco and snuff Second Hand Exposure: Yes Smoking risk assessment performed?: Yes Alcohol Intake: current Alcohol Intake frequency: holidays/special occasions only Alcohol type: beer and hard liquor Drug use: Occasionally Substance use type: marijuana Adopted: No Caregiver/Support person: No Household members: significant other Housing: apartment Number of Children: 2 number of grandchildren: 0 Communication Needs: None Education Level: high school Do you need help understanding health information?: Rarely 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 Pets and animals: No Sexually active: Yes Do you think of yourself as: straight/heterosexual Current gender identity: male What is your relationship status?: How often do you talk on the phone with friends or family?: three or more times per week How often do you get together with friends or relatives?: twice per week How often do you attend zoroastrianism or lutheran services?: 1-3 times per year Do you belong to any clubs or organized social groups?: yes Panel score (0-1 are the most socially isolated patients): 2 What type of physical activity do you participate in: walking and other Details: golf Duration: 30-45 minutes/day Frequency: 1-2 times per week Special jaime needs: No Agree to transfusion: Yes Seatbelt use: sometimes Helmet use: Yes Helmet use: sometimes Drive intox or ride w/intox high lift driver: No Working smoke detector in home: Yes Carbon monox detector in home: Yes Firearms in home: No Do you feel safe at home: Yes Do you feel safe in your relationship?: Yes Victim of physical abuse: No Victim of emotional abuse: No Victim of sexual abuse: No
[2025-07-04] MEDS: Lidocaine 2% Jelly 11 ML SYR UR (03:40)
[2025-07-04 03:54] LABS: HCT 35.0 % (40.0-50.0); HGB 11.7 g/dL (13.5-17.5); MCH 26.9 pg (27.0-33.0); MCHC 33.4 % (32.0-36.0); MCV 81 fL (80-95); MPV 8.8 fL (8.0-11.0); Platelet Count 227 10^3/uL (130-400); RBC 4.35 10^6/uL (4.36-5.78); RDW 13.4 % (11.8-14.1); RDW-SD 38.8 fL; WBC 7.37 10^3/uL (4.4-10.8)
[2025-07-04 04:22] LABS: Anion Gap 8.5 mmol/L (3-11); BUN 23 mg/dL (7-18); CO2 26.5 mmol/L (21.0-32.0); Calcium 9.9 mg/dL (8.5-10.1); Chloride 108 mmol/L (98-107); Estimated GFR 51.67 (mL/min/1.73m2); Glucose 159 mg/dL (74-106); Potassium 3.9 mmol/L (3.5-5.1); Sodium 143 mmol/L (136-145)
[2025-07-04] MEDS: Ondansetron 4 MG/2 ML VIAL (04:39)
[2025-07-04] MEDS: MORPHine 4 MG/ML SYR IVP (04:39)
--- NOTE | 2025-07-04 07:17 | W.PM.HP.N ---
Date of service: 07/04/25 Time of Service: 07:17 Assessment and Plan Assessment and plan (1) Clot retention of urine: Status: Acute Assessment and plan: With the amount of clot within the bladder, I would not expect us to be able to clear the clots with hand irrigation and CBI. I believe we need to bring him to the operating room urgently today for cystoscopy with clot evacuation. We would then be able to see if there is an underlying bladder mass that could be fulgurated or resected. The other possibility would be an enlarged vascular prostate that could also be cauterized and possibly treated with a 5 alpha reductase inhibitor. History of Present Illness History of Present Illness Chief Complaint: Clot retention Narrative: This is a 65-year-old gentleman who developed gross hematuria about 3 weeks ago. His hematuria improved at first but then again worsened a week later. He was seen back in our emergency department and a CT scan done without contrast showed high density material within his bladder. He was referred to see us and actually had an appointment scheduled for today. He presented back to the emergency department and clot retention last evening. He has been passing large clots prior to the ED visit. Since his presentation last evening, an irrigating catheter has been placed and continuous bladder irrigation was started. His discomfort improved, but we have not been able to keep the CBI running freely without clotting off. He is not on any anticoagulants. He is a previous smoker but quit over 25 years ago. He has no known history of urologic malignancy. He has not had any previous urologic surgery. Review of Systems Narrative: No fevers or chills No vision change or dysphasia Diabetes. No thyroid dysfunction No shortness of breath, cough or hemoptysis Hx PA 20 years ago treated with stents - No chest pain or palpitations. No nausea, vomiting, hepatitis, ulcers, jaundice No seizures, strokes or peripheral neuropathy No bleeding disorders or anemia No gout PFSH All Active Problems (Updated 07/04/25 @ 07:24 by Magdiel Torres MD) Clot retention of urine (Acute) Nodule of kidney (Acute) Dysuria (Acute) Hematuria (Acute) Gross hematuria (Acute) Erectile dysfunction (Acute) Family history of colon cancer (Acute) Adenomatous colon polyp (Acute) Type 2 diabetes mellitus (Acute) ASCVD (arteriosclerotic cardiovascular disease) (Chronic) stent to LAD 2005-has not needed to f/u up with cardiology but does with PCP Gout (Chronic) Inactive right now. 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 states not arthroplasty but arthroscopy History of heart artery stent Family History Mother , age 80 Diabetes Depression Mental disorder Depression Father , age 49 Stomach cancer Lung cancer Brother , age 71 Essential hypertension Hyperlipidemia Colon cancer Prostate cancer Brother Heart disease Son No problems noted. Daughter , age 20 Asthma Hypertension Brother Heart disease Neoplasm COLON Paternal Grandfather Heart disease Hyperlipidemia Cancer Sister , 61 No problems noted. Social History Smoking/Tobacco Use Status: Former Tobacco Use tobacco type: cigarettes and smokeless tobacco Quit Date: 10/12/99 Tobacco: How many years used: 20 Smokeless tobacco user: chewing tobacco and snuff Second Hand Exposure: Yes Smoking risk assessment performed?: Yes Alcohol Intake: current Alcohol Intake frequency: holidays/special occasions only Alcohol type: beer and hard liquor Drug use: Occasionally Substance use type: marijuana Adopted: No Caregiver/Support person: No Household members: significant other Housing: apartment Number of Children: 2 number of grandchildren: 0 Communication Needs: None Education Level: high school Do you need help understanding health information?: Rarely 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 Pets and animals: No Sexually active: Yes Do you think of yourself as: straight/heterosexual Current gender identity: male What is your relationship status?: How often do you talk on the phone with friends or family?: three or more times per week How often do you get together with friends or relatives?: twice per week How often do you attend mormon or mu-ism services?: 1-3 times per year Do you belong to any clubs or organized social groups?: yes Panel score (0-1 are the most socially isolated patients): 2 What type of physical activity do you participate in: walking and other Details: golf Duration: 30-45 minutes/day Frequency: 1-2 times per week Special jaime needs: No Agree to transfusion: Yes Seatbelt use: sometimes Helmet use: Yes Helmet use: sometimes Drive intox or ride w/intox transit mixer driver: No Working smoke detector in home: Yes Carbon monox detector in home: Yes Firearms in home: No Do you feel safe at home: Yes Do you feel safe in your relationship?: Yes Victim of physical abuse: No Victim of emotional abuse: No Victim of sexual abuse: No Meds Allergies and Home Medications Allergies Allergy/AdvReac Type Severity Reaction Status Date / Time No Known Allergies Allergy Verified 07/04/25 03:18 Home Medications ?Medication ?Instructions ?Recorded ?Confirmed ?Type sildenafil 50 mg tablet (Viagra) 50 mg PO DAILY PRN sexual activity 10/27/23 07/04/25 Rx #14 tabs metformin 500 mg tablet,extended 500 mg PO DAILY #90 tabs 12/28/23 07/04/25 Rx release 24hr (osmotic) aspirin 81 mg tablet,delayed 81 mg PO DAILY 01/07/24 07/04/25 History release nitroglycerin 0.4 mg sublingual 0.4 mg sublingual Q5M PRN chest 01/07/24 07/04/25 Rx tablet pain #14 tabs chlorthalidone 25 mg tablet 12.5 mg (1/2 x 25 mg) PO DAILY #90 07/26/24 07/04/25 Rx tabs semaglutide 2 mg/dose (8 mg/3 mL) 2 mg (0.75 mL) subcut QWEEK #3 mL 09/01/24 07/04/25 Rx subcutaneous pen injector allopurinol 300 mg tablet 300 mg PO DAILY #90 tab-caps 10/28/24 07/04/25 Rx amlodipine 10 mg tablet 10 mg PO DAILY #90 tabs 10/28/24 07/04/25 Rx atorvastatin 40 mg tablet (Lipitor) 40 mg PO DAILY #90 tab-caps 10/28/24 07/04/25 Rx metoprolol succinate 100 mg 100 mg PO DAILY #90 tabs 06/06/25 07/04/25 Rx tablet,extended release 24 hr cefdinir 300 mg capsule 300 mg PO BID #14 caps 06/26/25 07/04/25 Rx phenazopyridine 200 mg tablet 200 mg PO QPC 6 doses #6 tabs 06/26/25 07/04/25 Rx (Pyridium) Exam Const General: cooperative Neck Neck: supple Resp Effort & Inspection: normal respiratory effort Auscultation: clear to auscultation bilaterally Cardio Rate: regular rate Rhythm: regular rhythm GI Palpation: soft and no masses Neuro General: patient alert, patient awake and patient oriented x3 Results Imaging Imaging Studies: I reviewed his noncontrast CT scan on the PACS system. There appears to be a large amount of clot within his bladder. There is certainly may be an underlying bladder mass, but the CT is not diagnostic. Labs 07/04/25 03:47 07/04/25 03:47 Labs: Laboratory Results - last 24 hr 07/04/25 03:47 WBC 7.37 RBC 4.35 L Hgb 11.7 L Hct 35.0 L MCV 81 MCH 26.9 L MCHC 33.4 RDW 13.4 Plt Count 227 MPV 8.8 Sodium 143 Potassium 3.9 Chloride 108 H Carbon Dioxide 26.5 Anion Gap 8.5 BUN 23 H Creatinine 1.5 H Est GFR (CKD-EPI 2020) 51.67 Glucose 159 H Calcium 9.9 Last Vital Signs Temp 37.2 C 07/04/25 03:22 Pulse 88 07/04/25 03:22 Resp 16 07/04/25 03:22 BP 143/89 H 07/04/25 03:22 Pulse Ox 96 07/04/25 03:22 Time Spent Time spent with Patient: <40 minutes Time was spent: preparing to see the patient(eg.review tests), obtaining and/or reviewing separately otained hiistory, referring, communicating with other health patient care nursing assistant and counseling the patient
--- NOTE | 2025-07-04 07:19 | ANES.PREOP_ITS ---
General Info Date of Service Date Performed: 07/04/25 Height: 5 ft 10 in Weight: 99.79 kg Body Mass Index (BMI): 31.5 Surgical Procedure: Operation Date: 07/04/25 07:40 Proposed Procedure Side Surgeon p Cysto, Clot Evacuation, Fulgeration, Transurethral Resection Bladder Tumor Magdiel Torres MD Meds Allergies and Home Medications Allergies Allergy/AdvReac Type Severity Reaction Status Date / Time No Known Allergies Allergy Verified 07/04/25 03:18 Home Medication ?Medication ?Instructions ?Recorded sildenafil 50 mg tablet (Viagra) 50 mg PO DAILY PRN se xual activity 10/27/23 #14 tabs metformin 500 mg tablet,extended 500 mg PO DAILY #90 t abs 12/28/23 release 24hr (osmotic) aspirin 81 mg tablet,delayed 81 mg PO DAILY 01/07/24 release nitroglycerin 0.4 mg sublingual 0.4 mg sublingual Q5M PRN chest 01/07/24 tablet pain #14 tabs chlorthalidone 25 mg tablet 12.5 mg (1/2 x 25 mg) PO D AILY #90 07/26/24 tabs semaglutide 2 mg/dose (8 mg/3 mL) 2 mg (0.75 mL) subcu t QWEEK #3 mL 09/01/24 subcutaneous pen injector allopurinol 300 mg tablet 300 mg PO DAILY #90 tab-caps 10/28/24 amlodipine 10 mg tablet 10 mg PO DAILY #90 tabs 10/12 05/05 atorvastatin 40 mg tablet (Lipitor) 40 mg PO DAILY #90 tab-caps 10/28/24 metoprolol succinate 100 mg 100 mg PO DAILY #90 tabs 0 06/06/25 tablet,extended release 24 hr cefdinir 300 mg capsule 300 mg PO BID #14 caps 06/26 phenazopyridine 200 mg tablet 200 mg PO QPC 6 doses #6 tabs 06/26/25 (Pyridium) Current Visit Medications: Current Medications Generic Name Dose Route Start Last Admin Trade Name Freq PRN Reason Stop Dose Admin IV Miscellaneous Supplies 1 each 07/04/25 03:45 Iv Access IV DIRECTED BHANU Sodium Chloride 0 ml 07/04/25 03:38 Normal Saline Flush 10 Ml Syr IVP PRN PRN Sodium Chloride 0 ml 07/04/25 08:30 Normal Saline Flush 10 Ml Syr IVP BID BHANU Sodium Chloride 0 ml 07/04/25 03:38 Normal Saline 10 Ml Vial IJ DIRECTED PRN PFSH Active Problems Active Problems: Problem Status Onset Code Nodule of kidney Acute N28.89 Dysuria Acute R30.0 Hematuria Acute R31.9 Gross hematuria Acute R31.0 Erectile dysfunction Acute N52.9 Family history of colon cancer Acute Z80.0 Adenomatous colon polyp Acute D12.6 Type 2 diabetes mellitus Acute E11.9 ASCVD (arteriosclerotic cardiovascular disease) Chronic I25.10 Gout Chronic M10.9 Hyperlipidemia Chronic E78.5 Essential hypertension Chronic I10 Medical History Medical History Diabetes mellitus Family history of prostate cancer Herniated cervical disc without myelopathy Surgical History Surgical History History of colonoscopy with polypectomy (~07/05/21) History of colonoscopy (~10/01/15) History of arthroplasty of right knee (~1996) Pt. states not arthroplasty but arthroscopy History of heart artery stent Tobacco Smoking/Tobacco Use Status: Former Tobacco Use Smokeless tobacco user: chewing tobacco and snuff Passive smoking exposure: Yes Second hand exposure: Yes Alcohol Alcohol Intake: current Alcohol intake frequency: holidays/special occasions only Alcohol type: beer and hard liquor Substance Use Substance use: Occasionally Substance use type: marijuana Vital Signs and Lab Results Vital Signs Most Recent Vital Signs in EMR: Most Recent Vital Signs Temp Pulse Resp BP Pulse Ox 37.2 C 88 16 143/89 H 96 07/04/25 03:22 07/04/25 03:22 07/04/25 03:22 07/04/25 03:22 07/04/25 03:22 Lab Results 07/04/25 03:47 07/04/25 03:47 Blood Type / Crossmatch: 2 Antibody Screen NEGATIVE 06/26/25 Complete Blood Count: 2 WBC, (4.4-10.8) 7.37 10^3/uL Today, 03:47 RBC, (4.36-5.78) 4.35 10^6/uL L Today, 03:47 Hgb, (13.5-17.5) 11.7 g/dL L Today, 03:47 Hct, (40.0-50.0) 35.0 % L Today, 03:47 Plt Count, (130-400) 227 10^3/uL Today, 03:47 Complete Metabolic Panel: 2 Sodium, (136-145) 143 mmol/L Today, 03:47 Potassium, (3.5-5.1) 3.9 mmol/L Today, 03:47 Chloride, (98-107) 108 mmol/L H Today, 03:47 Carbon Dioxide, (21.0-32.0) 26.5 mmol/L Today, 03:47 BUN, (7-18) 23 mg/dL H Today, 03:47 Creatinine, (0.70-1.30) 1.5 mg/dL H Today, 03:47 Est GFR (CKD-EPI 2020), (mL/min/1.73m2) 51.67 Today, 03:47 Calcium, (8.5-10.1) 9.9 mg/dL Today, 03:47 Albumin, (3.4-5.0) 3.8 g/dL 06/26/25, 17:26 Glucose, (74-106) 159 mg/dL H Today, 03:47 Liver Function Panel: 2 ALT, (16-63) 35 U/L 06/26/25, 17:26 AST, (15-37) 14 U/L L 06/26/25, 17:26 Coagulation Panel: 2 INR, (0.9-1.1) 1.0 06/26/25, 17:26 PT, (9.1-11.1) 10.4 sec 06/26/25, 17: APTT, (20.6-30.2) 25.2 sec 06/26/25, 17:26 Imaging and Studies Imaging and Studies Study information below may be from another EMR and interpreted by another provider. Please see original notes in EMR for more complete details. EKG Summary: 03/04:Conclusion Sinus rhythm...normal P axis, V-rate 50- 99 Stress Test Summary: 04/04:MPI Conclusion Myocardial perfusion is normal. There is no ischemia or evidence of prior infarction Ejection fraction is 55% with normal wall motion Anesthesia Assessment and Plan Anesthesia History Personal History: No History of Anesthesia Complications Family History: No Family History of Anesthesia Complications Exercise Tolerance Exercise Tolerance: Metabolic Equivalents>4 Pertinent Negatives Pertinent Negatives: No Symptoms of GERD, No Major Pulmonary Symptoms or Complaints and No History of CVA/TIA Cardiac & Pulmonary Exam Cardiac Exam: Normal S1/S2 Heart Sounds Pulmonary Exam: Clear Bilateral Breath Sounds Implantable Cardiac Device Does patient have a Pacemaker or an ICD?: No Airway Exam Known Difficult Airway: No Mallampati Class: 2 Mouth Opening: Normal (> 3cm) Thyromental Distance: Greater than 3 cm Neck Range of Motion: Full ROM Neck Circumference: Normal Teeth Condition: Edentulous ASA Classification ASA Score: ASA 3 Emergency Case?: No NPO Status NPO Status: NPO Clears >2 hours, Solids >8 hours and Full Stomach Anesthesia Plan Resuscitation Status: Full Code Anesthesia Technique: General Anesthesia Airway Planned: Endotracheal Tube Monitors Used: Standard Monitors Preoperative Comments:: Pt. states stent almost 20 years ago after SD, no issues or chest pain since. Did take Ozempic yesterday. Last ate sandwich around 8pm last night and some water around 3am. Discussed aspiration risk as well as spinal option which patient declined.
[2025-07-04] MEDS: Lactated Ringers 1,000 ML 80 ML IV ×2 (09:29→12:51)
[2025-07-04] MEDS: Normal Saline Flush 10 ML SYR IVP (09:29)
[2025-07-04] MEDS: ceFAZolin 2 GM/50 ML BAG IVPB (11:21)
[2025-07-04] MEDS: Lidocaine 2% Jelly 11 ML SYR (11:43)
--- NOTE | 2025-07-04 11:45 | BLADDER_PTH ---
PATIENT: Tien Clifton LOC: U#:[id number] AGE/SX: 65/M ROOM: [id number] RE07/04/[address]: Magdiel Torres MD : 1960 BED: A DIS: 07/07/2025 SPEC #: [id number] RECD: 07/04/25 12:42 STATUS: ALVERTO REQ #: [id number] NESSA: 07/04/25 11:[address]: Magdiel Torres DEPT: Surgical Specimen RECD BY: Shelbi Dniero ENTERED: 07/04/25 12:42 SP TYPE: Bladder OTHR DR: Fernando Leonard DNP Tissues: 1 - BLADDER CURRETTINGS Procedures: GROSS AND MICRO LEVEL 5 Comments: [id number]
--- NOTE | 2025-07-04 12:20 | ROE_ITS ---
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 Since that time, he has had persistent hematuria and clots. He developed urinary retention and presented to the emergency room early this morning. A catheter was placed but we were unable to clear all of his clots. He presents now for cystoscopy and clot evacuation. During one of his previous ED visits, a CT scan was done. A large amount of solid tissue was found within his bladder. Findings: Large amount of clot Extensive (greater than 5 cm) papillary mucosa extending from the bladder neck into the prostatic mucosa. The lesion extends from the right bladder neck and lateral bladder wall up to the 1 o'clock position anteriorly Procedure Description: The patient was given antibiotics and brought from the emergency department to the operating room on 07/04/2025. After successful induction of general anesthesia, he was placed in the dorsal lithotomy position. His indwelling catheter balloon was deflated and the catheter was removed. His genitalia was prepped and draped. 2% Xylocaine jelly was instilled into the urethra. A 24 [place]ian resectoscope sheath was passed through the urethra into the bladder. We utilized a 30 degree lens and a visual obturator. The pendulous, bulbar and membranous urethra was all appeared normal with no strictures. The prostatic urethra showed some lateral lobe enlargement and shaggy appearing mucosa at the bladder neck. The bladder neck was entered and the bladder mucosa was inspected. A large amount of clot was identified and we evacuated the clot using the Lien syringe. We were then able to visualize the bladder mucosa. There was some hemorrhagic changes at the base of the bladder posteriorly along the path of his Pagan catheter. We also identified abnormal papillary mucosa at the bladder neck. The area extended from the 7 o'clock position all the way up to the 1 o'clock position and involved both bladder mucosa and prostate mucosa. Both ureteral orifices were identified. No papillary lesion was seen overlying the orifices. Some of the papillary tissue appeared necrotic. We then utilized an Lindsay resectoscope and performed transurethral resection of the abnormal appearing mucosa. We then cauterized all the resected tissue and sent it to the laboratory for chemical analysis. At the completion of the procedure, I did not find any arterial bleeding but there was some oozing from the resection site. I passed a 20 [place]ian hematuria catheter through the urethra into the bladder. I inflated the catheter balloon with 10 cc of sterile water and begin continuous bladder irrigation. The patient tolerated this procedure well with no complications. Date of Procedure: 07/04/25
--- NOTE | 2025-07-04 12:29 | W.PM.DSUDISC ---
Discharge Plan Disposition Patient Disposition: Home Condition: Stable Discharge Details Reason For Visit: Cystotomy Attending Provider: Magdiel Torres Primary Care Provider: Fernando Vidal Home Meds and New Rx's Prescriptions: No Action sildenafil [Viagra] 50 mg tablet 50 mg PO DAILY PRN (Reason: sexual activity) Qty: 14 0RF Rx Instructions: administer 30 minutes to 4 hours before activity chlorthalidone 25 mg tablet 12.5 mg PO DAILY Qty: 90 3RF allopurinol 300 mg tablet 300 mg PO DAILY Qty: 90 4RF amlodipine 10 mg tablet 10 mg PO DAILY Qty: 90 4RF atorvastatin [Lipitor] 40 mg tablet 40 mg PO DAILY Qty: 90 4RF metformin 500 mg tablet extended release 24hr 500 mg PO DAILY Qty: 90 4RF Rx Instructions: dose decrease nitroglycerin 0.4 mg tablet, sublingual 0.4 mg sublingual Q5M PRN (Reason: chest pain) Qty: 14 0RF Rx Instructions: Take 1 tab at onset of symptoms, repeat every 5 minutes x 3 doses if chest pain persists aspirin 81 mg tablet,delayed release (DR/EC) 81 mg PO DAILY semaglutide 2 mg/dose (8 mg/3 mL) pen injector 2 mg subcut QWEEK Qty: 3 12RF metoprolol succinate 100 mg tablet extended release 24 hr 100 mg PO DAILY Qty: 90 4RF cefdinir 300 mg capsule 300 mg PO BID Qty: 14 0RF phenazopyridine [Pyridium] 200 mg tablet 200 mg PO QPC Qty: 6 0RF Discharge Instructions Additional Instructions: Drink plenty of fluid to keep the urine color transparent - it can be red but you should be able to shine light through it Munroe catheter to gravity drainage (large bag or leg bag) catheter plug to irrigation port Followup visit in my office 1 week for catheter removal No straining or lifting over 10 pounds until catheter is removed Activity:: no straining/lifting over 10 pounds until catheter removed Shower/Bathe:: 24 hours Diet:: As Tolerated DS: Diagnosis Discharge Diagnosis (1) Clot retention of urine: Status: Acute
[2025-07-04] MEDS: fentaNYL 100 MCG/2 ML VIAL IVP ×3 (12:40→13:07)
[2025-07-04] MEDS: Oxybutynin 5 MG TAB PO (12:56)
[2025-07-04] MEDS: Phenazopyridine 200 MG TAB PO (13:17)
[2025-07-04] MEDS: ACETAMINOPHEN 1,000 MG/100 ML BAG 400 MG IVPB (13:27)
--- NOTE | 2025-07-04 14:44 | W.ANESPOSTOP ---
Postoperative Evaluation Date, Time and Location Date Performed: 07/04/25 Time Performed: 14:44 Patient Location: Day Surgery Unit Vital Signs Most Recent Imported Vital Signs: Most Recent Vital Signs Temp Pulse Resp BP Pulse Ox 36.1 C L 68 16 128/75 98 07/04/25 14:23 07/04/25 14:23 07/04/25 14:23 07/04/25 14:07/04/25 14:23 Pain Score Most Recent Pain Score: Most Recent Pain Score Pain Level 8 07/04/25 13:44 Assessment Mental Status: Awake (Alert & Oriented to Patient Baseline) Airway and Respiratory Function: Patent airway with normal (patient baseline) respiratory exam Cardiovascular Function: Hemodynamically Stable Hydration Status: Adequately Hydrated Nausea & Vomiting: No Nausea or Vomiting Pain: Pain is tolerable per patient Peripheral Nerve Block: Patient did not receive a nerve block
[2025-07-04] MEDS: traMADol 50 MG TAB PO (15:01)
--- NOTE | 2025-07-04 15:52 | W.PC.ACHO ---
Registration Status: ADM NANETTE Primary Language: Preferred Language: Pashto ED Information & Data Chief Complaint Urinary 07/04/25 03:22 Chief Complaint Urinary 07/04/25 03:18 Triage Note came in by POV. blood/ 07/04/25 03:18 clotting from penis when voiding. last void was 199907/03/25. pain 10/10 pressure . states he has appointment with Dr. Torres this afternoon. 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 (Updated 07/05/21 @ 14:48 by Mary Lou Kunz RN) History of colonoscopy with polypectomy (~07/05/21) History of colonoscopy (~10/01/15) History of arthroplasty of right knee (~1996) History of heart artery stent Most Recent Vital Signs Temperature 36.1 C L 07/04/25 14:23 Temperature Source Oral 07/04/25 03:18 Pulse 68 07/04/25 14:23 Pulse Rhythm Regular 07/04/25 15:23 Pulse 60 07/04/25 13:36 Respiratory Rate 16 07/04/25 14:23 Respiratory Effort Normal 07/04/25 15:23 Respiratory Depth Normal 07/04/25 15:23 Respiratory Pattern Normal 07/04/25 15:23 Blood Pressure 128/75 07/04/25 14:23 Blood Pressure Mean 89 07/04/25 13:36 Blood Pressure Position Sitting 07/04/25 03:22 Pulse Oximetry 98 07/04/25 14:23 Respiratory End-tidal CO2 33 07/04/25 12:35 Oxygen Delivery Method Room Air 07/04/25 15:23 Oxygen Flow Rate 0 07/04/25 15:23 Pain Level 8 07/04/25 13:44 Allergies No Known Allergies Allergy (Verified 07/04/25 09:06) Precautions Isolation Standard precaution 07/04/25 03:22 Active Medications Generic Name Dose Route Start Last Admin Trade Name Freq PRN Reason Stop Dose Admin Fentanyl 0 mcg 07/04/25 11:45 07/04/25 13:07 Fentanyl 100 Mcg/2 Ml Vial IVP 08/03/25 11:44 25 mcg DIRECTED PRN Administration Ringer's Solution 1,000 mls @ 80 mls/hr 07/04/25 09:19 07/04/25 13:33 IV 08/03/25 09:18 80 mls/hr INFUSION BHANU Infusion Cefazolin Sodium/Dextrose 2 gm in 50 mls @ 100 mls/hr 07/04/25 09:21 07/04/25 11:45 Ancef Duplex IVPB 08/03/25 09:20 Infused PREOP BHANU Infusion Sodium Chloride 0 ml 07/04/25 03:38 07/04/25 09:29 Normal Saline Flush 10 Ml Syr IVP 10 ml PRN PRN Administration IV IV Catheter Type [Right Hand] Peripheral IV IV Catheter Type [Right Saline Lock Antecubital] IV Catheter Gauge [Right Hand] 20 IV Catheter Gauge [Right 20 Antecubital] Diet Orders Category Date Time Status Diet [Diabetes Consistent CHO/Heart Healthy] [DIET] Nutrition 07/04/25 Dinner Active Diagnostics 07/04/25 Range/Units 03:47 WBC 7.37 (4.4-10.8) 10^3/uL RBC 4.35 L (4.36-5.78) 10^6/uL Hgb 11.7 L (13.5-17.5) g/dL Hct 35.0 L (40.0-50.0) % MCV 81 (80-95) fL MCH 26.9 L (27.0-33.0) pg MCHC 33.4 (32.0-36.0) % RDW 13.4 (11.8-14.1) % Plt Count 227 (130-400) 10^3/uL MPV 8.8 (8.0-11.0) fL Sodium 143 (136-145) mmol/L Potassium 3.9 (3.5-5.1) mmol/L Chloride 108 H (98-107) mmol/L Carbon Dioxide 26.5 (21.0-32.0) mmol/L Anion Gap 8.5 (3-11) mmol/L BUN 23 H (7-18) mg/dL Creatinine 1.5 H (0.70-1.30) mg/dL Est GFR (CKD-EPI 2020) 51.67 (mL/min/1.73m2) Glucose 159 H (74-106) mg/dL Calcium 9.9 (8.5-10.1) mg/dL Intake and Output - 24 Hour Total 07/04/25 03:09 thru 07/04/25 15:23 Intake Total 1325 Output Total 2049 Balance -725 Weight 99.7 kg Intake: IV 1300 Oral 25 Output: Urine 1950 Estimated Blood Loss 100 Other: Urine Color Mccollum Urine Appearance Hematuria Comment irrigant port capped at [address] TORRES Emesis Description None Urinary Catheter Urinary Catheter Date of 07/04/25 Insertion [3-way Urethral] Time of insertion [3-way 12:00 Urethral] Falls Risk Assessment History of Falls No History 07/04/25 15:23 Contributing Factors No Factors 07/04/25 15:23 Ambulatory Aids Independent 07/04/25 15:23 Tubes/Lines W/no contributing factors 07/04/25 15:23 Gait Evaluation No gait disturbance 07/04/25 15:23 Cognition No cognitive impairment 07/04/25 15:23 Fall Total Score 10 07/04/25 15:23 Level of Risk Standard/Low Risk 07/04/25 15:23 Problems (Updated 07/04/25 @ 07:27 by Aaron Bah MD) Clot retention of urine (Acute) Gross hematuria (Acute) v v v v v v v v v Sending and/or Receiving Nurses: Please use comment section below to note any information pertinent to the patient hand-off not included above. Information / Comments: Report received from: Britney from PACU @[id number]
[2025-07-04] MEDS: Lactated Ringers 1,000 ML 100 ML IV (18:21)
[2025-07-04] MEDS: Cefdinir 300 MG CAP PO (19:56)
[2025-07-04] MEDS: Acetaminophen 325 MG TAB 650 MG PO (19:57)
[2025-07-04] MEDS: Docusate Sodium 100 MG CAP PO (19:57)
[2025-07-04] MEDS: Ketorolac 15 MG/ML VIAL IVP (19:58)
[2025-07-05] MEDS: Lactated Ringers 1,000 ML 100 ML IV (03:01)
--- NOTE | 2025-07-05 06:44 | W.PM.PROGNOT ---
Date of Service Date of service: 07/05/25 Time of Service: 06:44 Assessment and Plan Assessment and plan (1) Clot retention of urine: Status: Acute Assessment and plan: We have not been able to completely wean off the bladder irrigation or discontinue the IV analgesics. We will keep him 1 more day with the expectation that we will be able to discharge him to home tomorrow. We will plan on leaving his Munroe catheter in place for a total of 1 week to allow the bladder to heal. His follow-up treatments and recommendations will really depend on his surgical pathology. Subjective Subjective Interval history since last seen: He continues to have some discomfort which has required IV analgesics at times. He is tolerating oral diet and medications without nausea or vomiting When we attempted to slow down his his bladder irrigation, the urine became red, so we have continued the CBI for now. Exam Narrative Exam Narrative: His vital signs documented elsewhere in the chart His abdomen is soft with no peritoneal signs He is awake and alert His surgical pathology is pending Objective Last Vital Signs Temp 36.5 C 07/04/25 19:28 Pulse 76 07/04/25 19:28 Resp 16 07/04/25 19:28 BP 123/80 07/04/25 19:28 Pulse Ox 95 07/04/25 19:28 Time Spent with Patient Time Spent with Patient: <25 minutes Time was spent: preparing to see the patient(eg.review tests), obtaining and/or reviewing separately otained hiistory, referring, communicating with other health childcare provider and counseling the patient
[2025-07-05 07:33] VITALS: BP 128/75; PULSE 68; RESP 18; TEMP 36.5; O2SAT 96
[2025-07-05] MEDS: Chlorthalidone 25 MG TAB 12.5 MG PO (08:01)
[2025-07-05] MEDS: Normal Saline Flush 10 ML SYR IVP ×2 (08:02→19:40)
[2025-07-05] MEDS: Metoprolol CR 100 MG TABCR PO (08:02)
[2025-07-05] MEDS: Docusate Sodium 100 MG CAP PO ×2 (08:02→19:38)
[2025-07-05] MEDS: Allopurinol 300 MG TAB PO (08:02)
[2025-07-05] MEDS: amLODIPine 10 MG TAB PO (08:02)
[2025-07-05] MEDS: Atorvastatin 40 MG TAB PO (08:02)
[2025-07-05] MEDS: Cefdinir 300 MG CAP PO ×2 (08:02→19:38)
--- NOTE | 2025-07-05 11:53 | NUR.NOTE ---
Nursing Note: IVF was stopped per pt request. Pt stated Dr. Torres said I dont need the fluids anymore. I explained to the patient that we are waiting for the order to be entered into the EMR but pt still asked for the fluids to be turned off.
--- NOTE | 2025-07-05 12:23 | PDOC.CMIN ---
Date of service: 07/05/25 Time of Service: 12:24 Care Management Initial Assmt Initial Assessment Reason for Hospitalization: gross hematuria and clot retention Functional Status/Living Situation Patient Presentation: Gómez presented to the ED early yesterday morning with inability to urinate. He had been seen in the ED on the with hematuria and on the with worsening hematuria and clots. He had an appointment scheduled with urology later in the day, but he was having extreme pain and could not urinate. He presented to the ED. Gómez was taken to surgery yesterday with Dr. Torres and he underwent a Cystoscopy, clot evacuation, TUR Bladder Tumor - tissue was sent for biopsy. He was hopeful to be discharged today, but he had increased bleeding when the bladder irrigant was stopped. He will be kept another night, and be discharged home with a pagan catheter that he will keep in for a week to allow his bladder to heel. Town of Residence: [place] Significant Other/Family: Local (children Vazquez and Radha) Instrumental Activities of Daily Living (ADLs): Independent Medications Medication Management: No Issues/Barriers identified Advance Directives Advance Directives: Do you have an Advance Directive: N 04/26/14, 09:05 AD On File at [facility]: N 04/26/14, 09:05 Date Asked 07/04/25 07/04/25, 03:26 AD Date Reviewed COLST On File at [facility] COLST Date Scanned Code Status Resuscitation Status Full Code Insurance Coverage/Financial Issues Insurance: [employer] -? Care Team Visit Care Team Role Provider Type Fernando Hdez NP Primary Care Provider NURSE PRACTITIONER Aaron Bah MD Emergency Provider [facility] STAFF PHYSICIAN Magdiel Torres MD Admit Provider [facility] STAFF PHYSICIAN Attending Provider Discharge Potential Discharge Needs: PCP F/U Appt and Other (urology f/u) Anticipated Barriers to Discharge: None Identified Patient/Family Education Needs: Review discharge instructions, discuss Ask Me Three Transportation: Private vehicle Plan: Gómez will likely discharge home tomorrow with no new home care services. He will discharge home with pagan catheter in place, and f/u with Dr. Torres in 1 week. He will also need a PCP f/u. Gómez will transport home in a private vehicle. CM will continue to follow. Social Determinants of Health Screening Social Determinants of health last assessed in clinic: 07/06/25 Will the Patient Participate in the Screening?: Yes Do you worry about having a steady place to live?: no Problems where you live: no known problems In the past 12 months, have you had to go without electric, gas, oil or water in your home?: no 1. Within the past 12 months, we worried whether our food would run out before we got money to buy more.: Don't know/refused 2. Within the past 12 months, the food we bought just didn't last and we didn't have money to get more.: Don't know/refused Has lack of transportation kept you from medical appointments or from doing things needed for daily living?: no Has anyone in your life made you feel unsafe or unsupported?: no How hard is it for you to pay for the very basics like food, housing, medical care, and heating? Would you say it is:: Not hard at all Do you want help finding or keeping work or a job?: I do not need or want help If for any reason you need help with day-to-day activities such as bathing, preparing meals, shopping, managing finances, etc., do you get the help you need?: I don?t need any help How often do you feel lonely or isolated from those around you?: Never Do you speak a language other than Djiboutian at home?: No PFSH All Active Problems (Updated 07/04/25 @ 07:27 by Aaron Bah MD) Clot retention of urine (Acute) Nodule of kidney (Acute) Dysuria (Acute) Hematuria (Acute) Gross hematuria (Acute) Erectile dysfunction (Acute) Family history of colon cancer (Acute) Adenomatous colon polyp (Acute) Type 2 diabetes mellitus (Acute) ASCVD (arteriosclerotic cardiovascular disease) (Chronic) stent to LAD 2006-has not needed to f/u up with cardiology but does with PCP Gout (Chronic) Inactive right now. 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 states not arthroplasty but arthroscopy History of heart artery stent Family History Mother , age 80 Diabetes Depression Mental disorder Depression Father , age 49 Stomach cancer Lung cancer Brother , age 71 Essential hypertension Hyperlipidemia Colon cancer Prostate cancer Brother Heart disease Son No problems noted. Daughter , age 20 Asthma Hypertension Brother Heart disease Neoplasm COLON Paternal Grandfather Heart disease Hyperlipidemia Cancer Sister , 61 No problems noted. Social History Smoking/Tobacco Use Status: Former Tobacco Use tobacco type: cigarettes and smokeless tobacco Quit Date: 10/12/99 Tobacco: How many years used: 20 Smokeless tobacco user: chewing tobacco and snuff Second Hand Exposure: Yes Smoking risk assessment performed?: Yes Alcohol Intake: current Alcohol Intake frequency: holidays/special occasions only Alcohol type: beer and hard liquor Drug use: Occasionally Substance use type: marijuana Adopted: No Caregiver/Support person: No Household members: significant other Housing: apartment Number of Children: 2 number of grandchildren: 0 Communication Needs: None Education Level: high school Do you need help understanding health information?: Rarely 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 Pets and animals: No Sexually active: Yes Do you think of yourself as: straight/heterosexual Current gender identity: male What is your relationship status?: How often do you talk on the phone with friends or family?: three or more times per week How often do you get together with friends or relatives?: twice per week How often do you attend gnosticism or mormon services?: 1-3 times per year Do you belong to any clubs or organized social groups?: yes Panel score (0-1 are the most socially isolated patients): 2 What type of physical activity do you participate in: walking and other Details: golf Duration: 30-45 minutes/day Frequency: 1-2 times per week Special jaime needs: No Agree to transfusion: Yes Seatbelt use: sometimes Helmet use: Yes Helmet use: sometimes Drive intox or ride w/intox motor coach driver: No Working smoke detector in home: Yes Carbon monox detector in home: Yes Firearms in home: No Do you feel safe at home: Yes Victim of physical abuse: No Victim of emotional abuse: No Victim of sexual abuse: No
--- NOTE | 2025-07-05 16:24 | CHAPLAIN ---
I had a brief visit with Gómez, explained my role and offered support. He said he's fine and in touch with family members. His daughter had just left. He wasn't interested in a longer conversation.
[2025-07-05] MEDS: Ketorolac 15 MG/ML VIAL IVP (16:44)
[2025-07-05] MEDS: Acetaminophen 325 MG TAB 650 MG PO (19:39)
[2025-07-05] MEDS: traMADol 50 MG TAB PO (19:40)
[2025-07-05 19:41] VITALS: BP 132/80; PULSE 90; RESP 17; TEMP 36.8; O2SAT 96
[2025-07-05] MEDS: HYDROmorphone 2 MG/ML SYR IVP (21:49)
[2025-07-06] MEDS: Atorvastatin 40 MG TAB PO (07:44)
[2025-07-06] MEDS: Chlorthalidone 25 MG TAB 12.5 MG PO (07:44)
[2025-07-06] MEDS: Metoprolol CR 100 MG TABCR PO (07:45)
[2025-07-06] MEDS: Normal Saline Flush 10 ML SYR IVP ×2 (07:45→19:59)
[2025-07-06] MEDS: Docusate Sodium 100 MG CAP PO ×2 (07:45→19:59)
[2025-07-06] MEDS: Cefdinir 300 MG CAP PO ×2 (07:45→19:58)
[2025-07-06] MEDS: amLODIPine 10 MG TAB PO (07:45)
[2025-07-06] MEDS: Allopurinol 300 MG TAB PO (07:45)
[2025-07-06 08:20] VITALS: BP 129/81; PULSE 66; RESP 16; TEMP 36.1; O2SAT 96
--- NOTE | 2025-07-06 11:00 | W.PM.PROGNOT ---
Date of Service Date of service: 07/06/25 Time of Service: 11:00 Assessment and Plan Assessment and plan (1) Clot retention of urine: Status: Acute Assessment and plan: Anytime if patient strains to lift an object or to move the bowels, it is common to induce bleeding from recent TURBT. I think the most prudent plan would be to give this gentleman some laxatives and keep him on bladder irrigation until his bowels moved for the first time. Once that occurs, if the CBI remains clear, we will be able to send him home with his catheter in place. Subjective Subjective Interval history since last seen: The patient had another episode of clot retention last evening after he strained to attempt to move his bowels. He is taking stool softeners but has not received a laxative. He is quite reluctant to go home with the possibility of a repeat episode of retention. He is not having any fevers or chills Exam Narrative Exam Narrative: He does not appear septic or toxic His vital signs are documented elsewhere His bladder irrigation is light pink at this time. I hand irrigated his catheter and obtained a few small clots Objective Last Vital Signs Temp 36.1 C L 07/06/25 08:20 Pulse 66 07/06/25 08:20 Resp 16 07/06/25 08:20 BP 129/81 07/06/25 08:20 Pulse Ox 96 07/06/25 08:20 Time Spent with Patient Time Spent with Patient: <25 minutes Time was spent: preparing to see the patient(eg.review tests), obtaining and/or reviewing separately otained hiistory, referring, communicating with other health critical care nurse practitioner and counseling the patient
[2025-07-06] MEDS: Polyethylene Glycol 3350 17 GM PACKET PO (11:23)
--- NOTE | 2025-07-06 17:11 | PDOC.CMPRO ---
Date of service: 07/06/25 Time of Service: 17:11 Care Management Progress Note Progress Note Text Progress Note Text: Gómez was relaxing in bed when CM met with him this morning. He stated that he starting bleeding and having clots again when he strained for a BM last evening, and his discharge is on hold until he has a BM and the CBI becomes clear. He was given miralax this morning, but no results as of this writing. Gómez has remained in very good spirits despite his set back. Discharge Potential Discharge Needs: PCP F/U Appt and Other (urology f/u) Anticipated Barriers to Discharge: None Identified Patient/Family Education Needs: Review discharge instructions, discuss Ask Me Three Transportation: Private vehicle Plan: Gómez will likely discharge home tomorrow with no new home care services. He will discharge home with a pagan catheter in place, and f/u with Dr. Torres in 1 week. He will also need a PCP f/u. Gómez will transport home in a private vehicle. CM will continue to follow. Social Determinants of Health Screening Social Determinants of health last assessed in clinic: 07/06/25 Will the Patient Participate in the Screening?: Yes Do you worry about having a steady place to live?: no Problems where you live: no known problems In the past 12 months, have you had to go without electric, gas, oil or water in your home?: no 1. Within the past 12 months, we worried whether our food would run out before we got money to buy more.: Don't know/refused 2. Within the past 12 months, the food we bought just didn't last and we didn't have money to get more.: Don't know/refused Has lack of transportation kept you from medical appointments or from doing things needed for daily living?: no Has anyone in your life made you feel unsafe or unsupported?: no How hard is it for you to pay for the very basics like food, housing, medical care, and heating? Would you say it is:: Not hard at all Do you want help finding or keeping work or a job?: I do not need or want help If for any reason you need help with day-to-day activities such as bathing, preparing meals, shopping, managing finances, etc., do you get the help you need?: I don?t need any help How often do you feel lonely or isolated from those around you?: Never Do you speak a language other than Senegalese at home?: No
[2025-07-07] MEDS: Oxybutynin 5 MG TAB PO (03:16)
[2025-07-07] MEDS: Acetaminophen 325 MG TAB 650 MG PO (03:16)
--- NOTE | 2025-07-07 06:57 | DSE_ITS ---
Date of service: 07/07/25 Time of Service: 06:57 DS: Diagnosis Discharge Diagnosis (1) Clot retention of urine: Status: Acute Discharge Plan Disposition Patient Disposition: Home Condition: Stable Discharge Details Reason For Visit: Clot Retention Admit Date/Time: 07/04/25 14:40 Admit Provider: Magdiel Torres Attending Provider: Magdiel Torres Primary Care Provider: Fernando Vidal Hospital Course Hospital Course: The patient presented to the emergency department with clot retention. A catheter was placed and irrigation was begun, but the clots could not be cleared. He was then brought to the operating room where we did a clot retention. We identified papillary mucosa at the bladder neck and performed transurethral resection of the area. Following the procedure, we left an irrigating catheter in place. We then admitted him to the floor for continuous bladder irrigation. We were able to keep the irrigant clot free unless the patient strained to move his bowels. We continued his bladder irrigation and gave him laxatives. Once his bowels moved successfully for the first time, we were able to discontinue the irrigant and discharge him to home with a catheter in place. Home Meds and New Rx's Prescriptions: New tramadol 50 mg tablet 50 mg PO Q6H MDD 4 PRN (Reason: pain) Qty: 15 0RF Continued phenazopyridine [Pyridium] 200 mg tablet 200 mg PO QPC Qty: 15 0RF No Action sildenafil [Viagra] 50 mg tablet 50 mg PO DAILY PRN (Reason: sexual activity) Qty: 14 0RF Rx Instructions: administer 30 minutes to 4 hours before activity chlorthalidone 25 mg tablet 12.5 mg PO DAILY Qty: 90 3RF allopurinol 300 mg tablet 300 mg PO DAILY Qty: 90 4RF amlodipine 10 mg tablet 10 mg PO DAILY Qty: 90 4RF atorvastatin [Lipitor] 40 mg tablet 40 mg PO DAILY Qty: 90 4RF nitroglycerin 0.4 mg tablet, sublingual 0.4 mg sublingual Q5M PRN (Reason: chest pain) Qty: 14 0RF Rx Instructions: Take 1 tab at onset of symptoms, repeat every 5 minutes x 3 doses if chest pain persists aspirin 81 mg tablet,delayed release (DR/EC) 81 mg PO DAILY semaglutide 2 mg/dose (8 mg/3 mL) pen injector 2 mg subcut QWEEK Qty: 3 12RF metoprolol succinate 100 mg tablet extended release 24 hr 100 mg PO DAILY Qty: 90 4RF lisinopril 20 mg tablet 20 mg PO DAILY Patient Comments: TAKE ONE TABLET BY MOUTH EVERY DAY cefdinir 300 mg capsule 300 mg PO BID Qty: 14 0RF Discharge Instructions Additional Instructions: Drink plenty of fluid to keep the urine color transparent - it can be red but you should be able to shine light through it Pagan catheter to gravity drainage (large bag or leg bag) catheter plug to irrigation port Followup visit in my office early next week for catheter removal second followup appt to go over pathology reports 1 to 2 weeks No straining or lifting over 10 pounds until catheter is removed Activity:: no straining or lifting Equipment/Supplies:: pagan catheter to leg bag Diet:: As Tolerated Discharge Orders Discharge Orders: Discharge Order (Routine); Ordered 07/07/25 Ordered By: Magdiel Torres DS: Summary Time Spent with Patient providing and/or coordinating discharge services: Less than 30 minutes Status at Discharge Functional status at discharge: independent ambulation Overall status at discharge: patient is progressing back to baseline Mental Status: mental status grossly normal Speech and Movement: speech and movement normal Mood: congruent mood Affect: normal affect Exam Narrative Exam Narrative: On the morning of discharge, he looks comfortable His vital signs are documented elsewhere in the chart His chest wall motion is normal His abdomen is soft with no guarding or rebound tenderness The Pagan catheter is in place and is draining pink-tinged, transparent urine He is awake and alert hospital and Psych Mental Status: mental status grossly normal Speech and Movement: speech and movement normal Mood: congruent mood Affect: normal affect DS: Data Vitals/I&O Vitals and I&O: Vital Signs Temperature 36.1 C L 07/06/25 08:20 Temperature Source Temporal Artery Scan 07/06/25 08:20 Pulse 66 07/06/25 08:20 Pulse Rhythm Regular 07/04/25 15:23 Pulse 60 07/04/25 13:36 Respiratory Rate 16 07/06/25 08:20 Respiratory Effort Normal 07/04/25 15:23 Respiratory Depth Normal 07/04/25 15:23 Respiratory Pattern Normal 07/04/25 15:23 Blood Pressure 129/81 07/06/25 08:20 Blood Pressure Mean 97 07/06/25 08:20 Blood Pressure Position Sitting 07/04/25 03:22 Pulse Oximetry 96 07/06/25 08:20 Respiratory End-tidal CO2 33 07/04/25 12:35 Oxygen Delivery Method Room Air 07/06/25 08:20 Oxygen Flow Rate 0 07/06/25 08:20 Pain Level 5 07/07/25 03:16 Comment PT resting, refused vitals. 07/06/25 19:11 Intake & Output 07/06/25 07/06/25 07/07/25 11:59 23:59 11:59 Intake Total 2050 / 2300 250 / 2300 250 / 250 Output Total 1500 / 1500 Balance 550 / 800 250 / 800 250 / 250 Intake: IV 1800 / 1810 10 0 Oral 250 / 490 240 / 490 250 / 250 Output: Urine 1500 / 1500 Other: Urine Color Yellow [place] Urine Appearance Clear Comment changed bag.drained 1000cc CBI in place patent and draining pink urine Stool Size Large Stool Characteristics Soft PFSH All Active Problems Clot retention of urine (Acute) Nodule of kidney (Acute) Dysuria (Acute) Hematuria (Acute) Gross hematuria (Acute) Erectile dysfunction (Acute) Family history of colon cancer (Acute) Adenomatous colon polyp (Acute) Type 2 diabetes mellitus (Acute) ASCVD (arteriosclerotic cardiovascular disease) (Chronic) stent to LAD 2005-has not needed to f/u up with cardiology but does with PCP Gout (Chronic) Inactive right now. 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 states not arthroplasty but arthroscopy History of heart artery stent Family History Mother , age 80 Diabetes Depression Mental disorder Depression Father , age 49 Stomach cancer Lung cancer Brother , age 71 Essential hypertension Hyperlipidemia Colon cancer Prostate cancer Brother Heart disease Son No problems noted. Daughter , age 20 Asthma Hypertension Brother Heart disease Neoplasm COLON Paternal Grandfather Heart disease Hyperlipidemia Cancer Sister , 61 No problems noted. Social History Smoking/Tobacco Use Status: Former Tobacco Use tobacco type: cigarettes and smokeless tobacco Quit Date: 10/12/99 Tobacco: How many years used: 20 Smokeless tobacco user: chewing tobacco and snuff Second Hand Exposure: Yes Smoking risk assessment performed?: Yes Alcohol Intake: current Alcohol Intake frequency: holidays/special occasions only Alcohol type: beer and hard liquor Drug use: Occasionally Substance use type: marijuana Adopted: No Caregiver/Support person: No Household members: significant other Housing: apartment Number of Children: 2 number of grandchildren: 0 Communication Needs: None Education Level: high school Do you need help understanding health information?: Rarely 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 Pets and animals: No Sexually active: Yes Do you think of yourself as: straight/heterosexual Current gender identity: male What is your relationship status?: How often do you talk on the phone with friends or family?: three or more times per week How often do you get together with friends or relatives?: twice per week How often do you attend denominational or zoroastrian services?: 1-3 times per year Do you belong to any clubs or organized social groups?: yes Panel score (0-1 are the most socially isolated patients): 2 What type of physical activity do you participate in: walking and other Details: golf Duration: 30-45 minutes/day Frequency: 1-2 times per week Special jaime needs: No Agree to transfusion: Yes Seatbelt use: sometimes Helmet use: Yes Helmet use: sometimes Drive intox or ride w/intox driver's license examiner: No Working smoke detector in home: Yes Carbon monox detector in home: Yes Firearms in home: No Do you feel safe at home: Yes Victim of physical abuse: No Victim of emotional abuse: No Victim of sexual abuse: No Time Spent with Patient Time Spent with Patient: <45 minutes Time was spent: preparing to see the patient(eg.review tests), obtaining and/or reviewing separately otained hiistory, referring, communicating with other health home care aide, counseling the patient and care coordination
--- NOTE | 2025-07-07 07:16 | W.PM.PROGNOT ---
Date of Service Date of service: 07/07/25 Time of Service: 07:17 Assessment and Plan Assessment and plan (1) Clot retention of urine: Status: Acute Assessment and plan: We will go ahead and discharge him today with his catheter in place. He will come to the office early next week to have the catheter removed. Once his surgical pathology is available, we can determine his appropriate follow-up and treatment. Subjective Subjective Interval history since last seen: The patient was able to move his bowels last evening and did not develop clot retention. He is much more comfortable this morning. He is ready for discharge. Exam Narrative Exam Narrative: He looks well. He does not appear septic or toxic His vital signs are documented elsewhere His urine is clear with CBI at a very slow rate He is awake and alert His surgical pathology is still pending Objective Last Vital Signs Temp 36.1 C L 07/06/25 08:20 Pulse 66 07/06/25 08:20 Resp 16 07/06/25 08:20 BP 129/81 07/06/25 08:20 Pulse Ox 96 07/06/25 08:20 Time Spent with Patient Time Spent with Patient: <25 minutes Time was spent: preparing to see the patient(eg.review tests), obtaining and/or reviewing separately otained hiistory, referring, communicating with other health health care social worker and counseling the patient
[2025-07-07] MEDS: Docusate Sodium 100 MG CAP PO (07:54)
[2025-07-07] MEDS: amLODIPine 10 MG TAB PO (07:54)
[2025-07-07] MEDS: Allopurinol 300 MG TAB PO (07:54)
[2025-07-07] MEDS: Cefdinir 300 MG CAP PO (07:55)
[2025-07-07] MEDS: Metoprolol CR 100 MG TABCR PO (07:55)
[2025-07-07] MEDS: Chlorthalidone 25 MG TAB 12.5 MG PO (07:59)
[2025-07-07] MEDS: Normal Saline Flush 10 ML SYR IVP (08:01)
[2025-07-07] MEDS: Atorvastatin 40 MG TAB PO (08:10)
[2025-07-07 08:16] VITALS: BP 121/78; PULSE 68; RESP 16; O2SAT 96
--- NOTE | 2025-07-07 09:10 | PDOC.CMDIS ---
Date of service: 07/07/25 Time of Service: 09:10 LACE Index Scoring Tool Questions: Length of Stay (in days): 3 Was the patient admitted via the E.D.?: Yes Comorbidities: Diabetes w/o Complication E.D. Visits: 3 Answers: Total Score: 10 Risk of Readmission: High Risk Care Management Discharge Plan Reason for Hospitalization: urinary retention due to clots, s/p transurethral resection of bladder Discharge Plan: Gómez is discharged home today with no new home care services. He is discharged with a pagan catheter - leg bag for day use and full bag for night time. Gómez feels comfortable with that care. Gómez will f/u with his PCP and Dr. Torres of urology and continue per his plan of care. Gómez will be transported home by his daughter. Patient/Family Education Needs: Review of discharge instructions, activity, limitations, and discuss Ask me 3.
--- NOTE | 2025-07-07 11:00 | NUR.NOTE ---
Nursing Note:Documentation by Shira Bhandari, SHAILESH student reviewed.
== END 2025-07-07 09:48 | disposition home or self-care (01) ==
LOC: ER 07:27 → SUR 08:55 → MS 15:11
PROVIDERS: Admitting Provider Urology; Emergency Provider Emergency Medicine; PCP Nurse Practitioner Family; Responsible Provider Urology; Visit Provider Urology
PROC: 0TBB8ZZ Excision of Bladder, Via Natural or Artificial Opening Endoscopic (ICD-10-PCS; CPT 52240; principal; 2025-07-04 08:15)
DX: C67.5 Malignant neoplasm of bladder neck (principal); R31.0 Gross hematuria; R33.8 Other retention of urine; N28.89 Other specified disorders of kidney and ureter; R30.0 Dysuria; E11.9 Type 2 diabetes mellitus without complications; I25.10 Atherosclerotic heart disease of native coronary artery without angina pectoris; E78.5 Hyperlipidemia, unspecified; I10 Essential (primary) hypertension; Z80.0 Family history of malignant neoplasm of digestive organs; M10.9 Gout, unspecified; Z79.899 Other long term (current) drug therapy
CPT/HCPCS: 52240; 52001; 36415; 51700; 51798; 80048; 85027; 96374; 96375; 96376; 99285; 88307; G0378; J0131; J0690; J1100; J1171; J1885; J2003; J2270; J2371; J2405; J2704; J3010

== ENCOUNTER 2025-07-27 05:30 | Outpatient (CLI) | payer OTHER, SELFPAY ==
--- NOTE | 2025-07-27 06:24 | DI.CT_ITS ---
Exam(s) CT CHEST/ABD/PEL W EXAM: CT CHEST/ABD/PEL W CLINICAL HISTORY: bladder ca, ? mets, C67.9. TECHNIQUE: Imaging Protocol: Axial computed tomography images with coronal and sagittal reformatted images were created and reviewed. Computer aided detection (CAD) was utilized. CONTRAST MATERIAL: Intravenous: Omnipaque 350 Contrast volume:100 ml Oral: Yes COMPARISON: CT CT RENAL COLIC WO from 06/26/2025 FINDINGS: CHEST: Pulmonary parenchyma: No consolidation. No dominant measurable mass. Tracheobronchial tree: No bronchiectasis. No mucous plugging.No bronchial wall thickening. Pleura: No effusion or pneumothorax. Mediastinum: Within normal limits. Pulmonary arteries: No visible emboli. Cardiovascular: The heart size is normal. Coronary artery stent is seen. No pericardial effusion. Thoracic aorta non-dilated. Bones: Unremarkable for age. No lytic or blastic lesions. No compression fractures. Soft tissues: Unremarkable. ABDOMEN and PELVIS: Liver: Normal density. No suspicious mass. Gallbladder and biliary tract: No evidence of stones or wall thickening. No biliary dilatation. Pancreas: Normal density, no abnormal calcifications or inflammatory process. Spleen: Normal. Kidneys: Normal size, contour and axis. No radiodense stones. No obstructive uropathy. Simple cyst of the medial mid right kidney. No suspicious masses seen. Adrenal glands: No masses seen. Aorta: Abdominal portion non-dilated. Mild atherosclerotic changes. Lymph nodes: There is an 9 x 15 by 19 millimeter lymph node noted posterior to the IVC at the level of the inferior poles of the kidneys. There is a node seen slightly more inferiorly, anterior to the IVC measuring 10 x 6 by 15 millimeters. There is a 3 by 1.5 centimeter node noted in the upper right iliac chain. More inferiorly in the right iliac chain there is a 2.7 by 1.5 centimeter node. Inferior to this there is a 15 x 10 millimeter node. Soft tissues: Unremarkable. Bladder: Empty and unable to be evaluated. There is a suggestion of wall thickening. There is mild haziness in the surrounding fat. No visible discrete mass. The previously noted tumor may have been resected. Bowel: No obstruction or bowel wall thickening. Normal quantity of stool. The appendix is normal. Peritoneal cavity: No ascites. No focal collection. No mesenteric inflammatory response. No free air. Bones: There degenerative changes of both hips. There are mild degenerative changes of the lumbar spine. No lytic or blastic lesions are identified. Reproductive organs: Unremarkable for age. IMPRESSION: No evidence of metastatic disease in the chest. The bladder is empty and not well evaluated. There is a suggestion of wall thickening. The previously noted mass is not visible. Multiple abnormally enlarged para-aortic and right iliac chain lymph nodes. RADIATION DOSE DELIVERED: 1,093.73mGy.cm Total DLP DATA REPOSITORY: All CT scans at this facility are submitted to the National Radiology Data Registry (NRDR) Dose Index Registry (DIR) with the [employer] (A[employer]). RADIATION OPTIMIZATION: All CT scans at this facility use at least one of these dose optimization techniques: automated exposure control; mA and/or kV adjustment per patient size (includes targeted exams where dose is matched to clinical indication); or iterative reconstruction.
[2025-07-27] MEDS: Barium Sulfate 2% W/V-Creamy Vanilla Smoothie 450 ML BTL PO ×2 (06:58→06:59)
[2025-07-27] MEDS: Normal Saline - Diluent 50 ML VIAL IJ (09:11)
[2025-07-27] MEDS: Normal Saline Flush 10 ML SYR IVP (09:12)
[2025-07-27] MEDS: Omnipaque 350 MG/ML 100 ML BTL IJ (09:12)
== END 2025-07-27 05:50 ==
LOC: DI 05:30
PROVIDERS: PCP Nurse Practitioner Family; Visit Provider Urology
DX: C67.9 Malignant neoplasm of bladder, unspecified (principal)
CPT/HCPCS: 74177; 71260; J3490

== ENCOUNTER 2025-08-29 09:20 | Outpatient (CLI) | payer OTHER, SELFPAY ==
[2025-08-29 09:22] LABS: Abs Immature Grans 0.04 10^3/uL (0.0-0.06); HCT 37.7 % (40.0-50.0); HGB 12.5 g/dL (13.5-17.5); Immature Grans % 0.5 %; MCH 25.8 pg (27.0-33.0); MCHC 33.2 % (32.0-36.0); MCV 78 fL (80-95); MPV 8.5 fL (8.0-11.0); Platelet Count 260 10^3/uL (130-400); RBC 4.84 10^6/uL (4.36-5.78); RDW 14.3 % (11.8-14.1); RDW-SD 39.6 fL; WBC 7.73 10^3/uL (4.4-10.8)
[2025-08-29 09:45] LABS: ALT 26 U/L (10-49); AST 20 U/L (<34); Albumin 4.4 g/dL (3.4-5.0); Alkaline Phosphatase 105 U/L (46-116); Anion Gap 10.2 mmol/L (3-11); BUN 20 mg/dL (9-23); Bilirubin, Total 0.30 mg/dL (0.2-1.2); CO2 25.8 mmol/L (20.0-31.0); Calcium 9.8 mg/dL (8.3-10.6); Chloride 106 mmol/L (98-107); Glucose 182 mg/dL (74-106); Potassium 4.2 mmol/L (3.5-5.1); Sodium 142 mmol/L (136-145); Total Protein 7.1 g/dL (5.7-8.2)
[2025-08-29 09:48] LABS: TSH 2.12 uIU/mL (0.55-4.78)
[2025-08-29 09:49] LABS: Ferritin 105 ng/mL (11-307)
[2025-08-29 10:26] LABS: Iron 44 ug/dL (65-175); Total Iron Binding Capacity 307 ug/dL (250-425); Transferrin Sat 14 % (20-55)
== END 2025-08-29 09:21 | disposition home or self-care (01) ==
LOC: LBO 09:20
PROVIDERS: PCP Nurse Practitioner Family; Visit Provider Internal Medicine
DX: C79.10 Secondary malignant neoplasm of unspecified urinary organs (principal); R94.6 Abnormal results of thyroid function studies
CPT/HCPCS: 36415; 80053; 82728; 83540; 83550; 84439; 84443; 85025

== ENCOUNTER 2025-09-06 16:34 | Emergency (ER) | payer OTHER, SELFPAY ==
[2025-09-06 16:37] VITALS: BP 189/58; PULSE 114; RESP 18; TEMP 35.9; O2SAT 96
[2025-09-06 16:40] VITALS: BP 189/58; PULSE 114; RESP 18; TEMP 35.9; O2SAT 96
[2025-09-06] MEDS: Lidocaine 2% Jelly 6 ML SYR ×2 (17:00→18:55)
--- NOTE | 2025-09-06 18:10 | W.ED.GENAD ---
Discharge Plan Disposition Patient Disposition: Home Condition: Stable Discharge Details Clinical Impression: Hematuria Primary Care Provider: Fernando Vidal ED Provider: Herber Gonzalez Home Meds and New Rx's Prescriptions: Continued sildenafil [Viagra] 50 mg tablet 50 mg PO DAILY PRN (Reason: sexual activity) Qty: 14 0RF Rx Instructions: administer 30 minutes to 4 hours before activity chlorthalidone 25 mg tablet 12.5 mg PO DAILY Qty: 90 3RF allopurinol 300 mg tablet 300 mg PO DAILY Qty: 90 4RF amlodipine 10 mg tablet 10 mg PO DAILY Qty: 90 4RF atorvastatin [Lipitor] 40 mg tablet 40 mg PO DAILY Qty: 90 4RF nitroglycerin 0.4 mg tablet, sublingual 0.4 mg sublingual Q5M PRN (Reason: chest pain) Qty: 14 0RF Rx Instructions: Take 1 tab at onset of symptoms, repeat every 5 minutes x 3 doses if chest pain persists aspirin 81 mg tablet,delayed release (DR/EC) 81 mg PO DAILY semaglutide 2 mg/dose (8 mg/3 mL) pen injector 2 mg subcut QWEEK Qty: 3 12RF metoprolol succinate 100 mg tablet extended release 24 hr 100 mg PO DAILY Qty: 90 4RF lorazepam [Ativan] 1 mg tablet 1 mg PO DAILY PRN (Reason: anxiety) Qty: 2 0RF Rx Instructions: take 1 pill about 1 hour prior to imaging test - take second pill when you arrive for the test if you are still feeling anxious lisinopril 20 mg tablet 20 mg PO DAILY Patient Comments: TAKE ONE TABLET BY MOUTH EVERY DAY tramadol 50 mg tablet 50 mg PO Q6H MDD 4 PRN (Reason: pain) Qty: 15 0RF phenazopyridine [Pyridium] 200 mg tablet 200 mg PO QPC Qty: 15 0RF cefdinir 300 mg capsule 300 mg PO BID Qty: 14 0RF Discharge Instructions Instructions: How to Care for Your Munroe Catheter, Blood in Urine (Hematuria), Adult ED Additional Instructions: You were seen in the emergency department for hematuria in setting of stage IV bladder cancer discharged from [facility] yesterday, he has some clots but had increasing pressure, your initial bladder scan showed 288 mL [address] we did place a difficult Munroe which you opted to leave in a week and follow-up in office. You had mildly low hemoglobin of 11.1 and has been here in the past without acute issues, please monitor yourself for any signs of blood loss, your urine showed no signs of infection. Stand Alone Forms: Portal Information Referrals: Fernando Vidal NP [Primary Care Provider, Medicine] Magdiel Torres MD [ [facility] STAFF PHYSICIAN, Urology] HPI General Date/Time Provider Initiated Documentation: 09/06/25 18:10. HPI Narrative: 65 year-old male presents to ED today by POV/ambulating with a chief complaint of hematuria, feeling of pressure in bladder- not having adequate urinary output with onset today after being discharged from [facility] with CBI performed in-patient in the setting of stage IV bladder cancer. Quality described as a lot of pressure, having some overflow incontinence of blood, no radiation to any voluntary urination since 1000 this morning. Severity is described as severe. Palliating factors include nothing specific attempted. Provoking factors include nothing specific. Patient not anticoagulated. Related Data Home Medications ?Medication ?Instructions ?Recorded ?Confirmed sildenafil 50 mg tablet (Viagra) 50 mg PO DAILY PRN sexual activity 10/27/23 07/10/25 #14 tabs aspirin 81 mg tablet,delayed 81 mg PO DAILY 01/07/24 07/10/25 release nitroglycerin 0.4 mg sublingual 0.4 mg sublingual Q5M PRN chest 01/07/24 07/10/25 tablet pain #14 tabs chlorthalidone 25 mg tablet 12.5 mg (1/2 x 25 mg) PO DAILY #90 07/26/24 07/10/25 tabs semaglutide 2 mg/dose (8 mg/3 mL) 2 mg (0.75 mL) subcut QWEEK #3 mL 09/01/24 07/10/25 subcutaneous pen injector allopurinol 300 mg tablet 300 mg PO DAILY #90 tab-caps 10/28/24 07/10/25 amlodipine 10 mg tablet 10 mg PO DAILY #90 tabs 10/28/24 07/10/25 atorvastatin 40 mg tablet (Lipitor) 40 mg PO DAILY #90 tab-caps 10/28/24 07/10/25 metoprolol succinate 100 mg 100 mg PO DAILY #90 tabs 06/06/25 07/10/25 tablet,extended release 24 hr cefdinir 300 mg capsule 300 mg PO BID #14 caps 06/26/25 07/10/25 lisinopril 20 mg tablet 20 mg PO DAILY 07/05/25 07/10/25 phenazopyridine 200 mg tablet 200 mg PO QPC 6 doses #15 tabs 07/07/25 07/10/25 (Pyridium) tramadol 50 mg tablet 50 mg PO Q6H PRN pain #15 tabs 07/07/25 07/10/25 lorazepam 1 mg tablet (Ativan) 1 mg PO DAILY PRN anxiety #2 tabs 07/21/25 Previous Rx's ?Medication ?Instructions ?Recorded sildenafil 50 mg tablet (Viagra) 50 mg PO DAILY PRN sexual activity 10/27/23 #14 tabs nitroglycerin 0.4 mg sublingual 0.4 mg sublingual Q5M PRN chest 01/07/24 tablet pain #14 tabs chlorthalidone 25 mg tablet 12.5 mg (1/2 x 25 mg) PO DAILY #90 07/26/24 tabs semaglutide 2 mg/dose (8 mg/3 mL) 2 mg (0.75 mL) subcut QWEEK #3 mL 09/01/24 subcutaneous pen injector allopurinol 300 mg tablet 300 mg PO DAILY #90 tab-caps 10/28/24 amlodipine 10 mg tablet 10 mg PO DAILY #90 tabs 10/28/24 atorvastatin 40 mg tablet (Lipitor) 40 mg PO DAILY #90 tab-caps 10/28/24 metoprolol succinate 100 mg 100 mg PO DAILY #90 tabs 06/06/25 tablet,extended release 24 hr cefdinir 300 mg capsule 300 mg PO BID #14 caps 06/26/25 phenazopyridine 200 mg tablet 200 mg PO QPC 6 doses #15 tabs 07/07/25 (Pyridium) tramadol 50 mg tablet 50 mg PO Q6H PRN pain #15 tabs 07/07/25 lorazepam 1 mg tablet (Ativan) 1 mg PO DAILY PRN anxiety #2 tabs 07/21/25 Allergies Allergy/AdvReac Type Severity Reaction Status Date / Time No Known Allergies Allergy Verified 09/06/25 16:40 General Stated Complaint: Urinary SARAH: 3 Review of Systems All systems reviewed & are unremarkable except as noted in HPI and below Exam Narrative Exam Narrative: GENERAL APPEARANCE: Well-nourished, non-toxic, awake and alert, atraumatic, no acute distress. SKIN: Warm, pink, dry, intact, without rashes/lesions/ulcerations. HEAD: Normocephalic, atraumatic, normal hair distribution for gender/age. EYES: Normal conjunctiva, no exudates on lids/lashes. ENT: Nares patent, no circumoral cyanosis, no facial swelling NECK: Supple, trachea midline, painless cervical ROM. LUNGS/CHEST: Non-labored respirations, normal A/P diameter, symmetrical expansion, no chest wall deformity HEART (CV/PV): No peripheral edema, no JVD. ABDOMEN: Soft, no guarding, lower abdominal distention and mild tenderness, no rebound tenderness, no CVA tenderness to percussion bilaterally, no scrotal swelling or erythema or exquisite tenderness, no subcutaneous emphysema. MSK: Normal ROM, no swelling/deformity to bilateral UEs or LEs, moving all extremities without weakness, no cyanosis, spine midline without tenderness, normal curvature. NEURO: Mental Status AAOx4 - alert to person, place, time, events No facial droop, no forehead involvement. Motor: No focal weakness - strength 5/5 in bilateral UEs and LEs, proximal and distal, symmetric. Sensory: sensation intact to light touch globally. Gait normal: patient ambulated without ataxia into ED room. PSYCH: euthymic, cooperative, pleasant, appropriate speech Course Vital Signs Vital signs: Vital Signs Temperature 35.9 C L 09/06/25 16:37 Pulse 114 H 09/06/25 16:37 Respiratory Rate 18 09/06/25 16:37 Blood Pressure 189/58 H 09/06/25 16:37 Pulse Oximetry 96 09/06/25 16:37 Temperature 35.9 C L 09/06/25 16:40 Temperature Source Tympanic 09/06/25 16:40 Pulse 114 H 09/06/25 16:40 Respiratory Rate 18 09/06/25 16:40 Blood Pressure 189/58 H 09/06/25 16:40 Pulse Oximetry 96 09/06/25 16:40 Medical Decision Making This dictation utilizes [id number] dictation software and may contain unedited grammatical errors. 65 year-old male presents to ED today by POV/ambulating with a chief complaint of hematuria, feeling of pressure in bladder- not having adequate urinary output with onset today after being discharged from [facility] with CBI performed in-patient in the setting of stage IV bladder cancer. Quality described as a lot of pressure, having some overflow incontinence of blood, no radiation to any voluntary urination since 1000 this morning. Severity is described as severe. Palliating factors include nothing specific attempted. Provoking factors include nothing specific. Patients' medical history: Hematuria, bladder cancer, T2DM, hyperlipidemia, hypertension. Family and social history: Noncontributory. Pertinent exam findings / vital signs include distention and tenderness in the lower abdomen, no CVA tenderness to percussion bilaterally, mild tachycardia on arrival, benign cardiopulmonary status, neuro intact, nontoxic and afebrile. Differential / pathologies of concern include obstructive uropathy caused by sediment/clot in bladder, urinary retention, gross hematuria. Diagnostic studies of: - Bladder scan arrival shows 288 mL. -re-scan after CBI initiated showing 88, is draining - CBC, CMP, UA - CBC shows HgB 11.1, has been around this level in the past - CMP unremarkable- SCr 1.3, has been higher in the past, mild low K+ would replete with normal PO intake - UA shows no infection Interventions of: -Continuous bladder irrigation initiated at 1900, very clear at 2045, discussed with the patient whether he wants to leave the Munroe in for the holiday weekend as did not have a risk of interruption to his holiday tomorrow, he opted to leave Munroe in and he will follow-up with Dr. Torres's office. ED Course/Assessment/Plan: 65-year-old male was discharged from [facility] yesterday, had a voluntary void this morning at 10 AM but now feels significant pressure and has passed clot bladder scan showed 288 mL on arrival, he had significant difficulty with Munroe insertion for CBI, he underwent this for approximately 2 hours opted to leave the Munroe in and follow-up with urology UA showed no signs of infection, counseled on strict return criteria for any worsening of hematuria or symptomatic anemia like dizziness. Findings not consistent with UTI, acute renal failure. Disposition of Hematuria. Patient verbalized understanding of the plan and return to ED criteria and engaged in shared decision making. Medical Records Medical records reviewed: Yes I reviewed the patient's medical records. Lab Data Lab results reviewed: Yes I reviewed the patient's lab results. Labs: Laboratory Tests Range/Units 09/06/25 09/06/25 19:25 19:40 WBC (4.4-10.8) 10^3/uL 8.88 RBC (4.36-5.78) 10^6/uL 4.21 L Hgb (13.5-17.5) g/dL 11.1 L Hct (40.0-50.0) % 32.1 L MCV (80-95) fL 76 L MCH (27.0-33.0) pg 26.4 L MCHC (32.0-36.0) % 34.6 RDW (11.8-14.1) % 13.8 Plt Count (130-400) 10^3/uL 192 MPV (8.0-11.0) fL 8.8 Immature Gran % % 0.6 Neutrophils % % 74.3 Lymphocytes % % 15.1 Monocytes % % 8.1 Eosinophils % % 1.6 Basophils % % 0.3 Nucleated RBC % (0.0-0.3) % 0.0 Absolute Neutrophils (1.2-6.7) 10^3/uL 6.60 Absolute Lymphocytes (1.2-3.4) 10^3/uL 1.34 Absolute Monocytes (0.1-0.8) 10^3/uL 0.72 Absolute Eosinophils (0.0-0.7) 10^3/uL 0.14 Absolute Basophils (0.0-0.2) 10^3/uL 0.03 Sodium (136-145) mmol/L 136 Potassium (3.5-5.1) mmol/L 3.4 L Chloride (98-107) mmol/L 105 Carbon Dioxide (20.0-31.0) mmol/L 22.9 Anion Gap (3-11) mmol/L 8.1 BUN (9-23) mg/dL 15 Creatinine (0.73-1.18) mg/dL 1.30 H Est GFR (CKD-EPI 2020) (mL/min/1.73m2) 55.48 Glucose (74-106) mg/dL 160 H Calcium (8.3-10.6) mg/dL 8.6 Total Bilirubin (0.2-1.2) mg/dL 0.30 AST (<34) U/L 17 ALT (10-49) U/L 20 Alkaline Phosphatase (46-116) U/L 106 Total Protein (5.7-8.2) g/dL 6.4 Albumin (3.2-5.0) g/dL 4.0 Urine Color (Yellow) [place] Urine Clarity (Clear) Cloudy Urine pH (5-8) 5.5 Ur Specific Jones (1.005-1.025) 1.010 Urine Protein (Neg-Trace) mg/dL 30 H Urine Ketones (Negative) mg/dL Negative Urine Blood (Negative) Large H Urine Nitrite (Negative) Negative Urine Bilirubin (Negative) Negative Urine Urobilinogen (Up to 0.2) mg/dL 0.2 Ur Leukocyte Esterase (Negative) Negative Urine RBC (0-2) HPF >50 H Urine WBC Not Applicable Ur Epithelial Cells Not Applicable Urine Crystals Not Applicable Urine Bacteria Not Applicable Urine Mucus Not Applicable Ur Culture Indicated? No Urine Glucose (Negative) mg/dL Negative PFSH All Active Problems (Updated 09/06/25 @ 20:29 by MICHELLE Angela) Hematuria (Acute) Bladder cancer (Acute) Nodule of kidney (Acute) Dysuria (Acute) Hematuria (Acute) Erectile dysfunction (Acute) Family history of colon cancer (Acute) Adenomatous colon polyp (Acute) Type 2 diabetes mellitus (Acute) ASCVD (arteriosclerotic cardiovascular disease) (Chronic) stent to LAD 2005-has not needed to f/u up with cardiology but does with PCP Gout (Chronic) Inactive right now. 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 states not arthroplasty but arthroscopy History of heart artery stent Family History Mother , age 80 Diabetes Depression Mental disorder Depression Father , age 49 Stomach cancer Lung cancer Brother , age 71 Essential hypertension Hyperlipidemia Colon cancer Prostate cancer Brother Heart disease Son No problems noted. Daughter , age 20 Asthma Hypertension Brother Heart disease Neoplasm COLON Paternal Grandfather Heart disease Hyperlipidemia Cancer Sister , 61 No problems noted. Social History Smoking/Tobacco Use Status: Former Tobacco Use tobacco type: cigarettes and smokeless tobacco Quit Date: 10/12/99 Tobacco: How many years used: 20 Smokeless tobacco user: chewing tobacco and snuff Second Hand Exposure: Yes Smoking risk assessment performed?: Yes Alcohol Intake: current Alcohol Intake frequency: holidays/special occasions only Alcohol type: beer and hard liquor Drug use: Occasionally Substance use type: marijuana Adopted: No Caregiver/Support person: No Household members: significant other Housing: apartment Number of Children: 2 number of grandchildren: 0 Communication Needs: None Education Level: high school Do you need help understanding health information?: Rarely 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 Pets and animals: No Sexually active: Yes Do you think of yourself as: straight/heterosexual Current gender identity: male What is your relationship status?: How often do you talk on the phone with friends or family?: three or more times per week How often do you get together with friends or relatives?: twice per week How often do you attend hinduism or baptist services?: 1-3 times per year Do you belong to any clubs or organized social groups?: yes Panel score (0-1 are the most socially isolated patients): 2 What type of physical activity do you participate in: walking and other Details: golf Duration: 30-45 minutes/day Frequency: 1-2 times per week Special jaime needs: No Agree to transfusion: Yes Seatbelt use: sometimes Helmet use: Yes Helmet use: sometimes Drive intox or ride w/intox 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
[2025-09-06 19:32] LABS: Abs Immature Grans 0.05 10^3/uL (0.0-0.06); HCT 32.1 % (40.0-50.0); HGB 11.1 g/dL (13.5-17.5); Immature Grans % 0.6 %; MCH 26.4 pg (27.0-33.0); MCHC 34.6 % (32.0-36.0); MCV 76 fL (80-95); MPV 8.8 fL (8.0-11.0); Platelet Count 192 10^3/uL (130-400); RBC 4.21 10^6/uL (4.36-5.78); RDW 13.8 % (11.8-14.1); RDW-SD 37.9 fL; WBC 8.88 10^3/uL (4.4-10.8)
[2025-09-06] MEDS: Acetaminophen 500 MG TAB 1000 MG PO (19:34)
[2025-09-06 19:51] LABS: Glucose Negative (Negative)
[2025-09-06 20:03] LABS: C & S Indicated? No; RBC >50 HPF (0-2)
[2025-09-06 20:25] LABS: ALT 20 U/L (10-49); AST 17 U/L (<34); Albumin 4.0 g/dL (3.2-5.0); Alkaline Phosphatase 106 U/L (46-116); Anion Gap 8.1 mmol/L (3-11); BUN 15 mg/dL (9-23); Bilirubin, Total 0.30 mg/dL (0.2-1.2); CO2 22.9 mmol/L (20.0-31.0); Calcium 8.6 mg/dL (8.3-10.6); Chloride 105 mmol/L (98-107); Glucose 160 mg/dL (74-106); Potassium 3.4 mmol/L (3.5-5.1); Sodium 136 mmol/L (136-145); Total Protein 6.4 g/dL (5.7-8.2)
[2025-09-06 20:51] VITALS: BP 145/73; PULSE 90; RESP 16; O2SAT 95
== END 2025-09-06 21:10 | disposition home or self-care (01) ==
PROVIDERS: Emergency Provider Physician Assistant; PCP Nurse Practitioner Family
DX: R31.9 Hematuria, unspecified; C67.9 Malignant neoplasm of bladder, unspecified
CPT/HCPCS: 51702; 51798; 80053; 99283; 81003; 81015; 85025; 99284

== ENCOUNTER 2025-09-07 11:26 | Emergency (ER) | payer OTHER, SELFPAY ==
[2025-09-07 11:28] VITALS: BP 105/67; PULSE 92; RESP 15; TEMP 36.2; O2SAT 96
[2025-09-07 11:33] VITALS: BP 105/67; PULSE 92; RESP 15; TEMP 36.2
--- NOTE | 2025-09-07 11:54 | ED.GENADUL_ITS ---
Discharge Plan Disposition Patient Disposition: Transfer-Acute Inpatient Care Specific Acute Inpt Facility: [facility] Condition: Stable Discharge Details Clinical Impression: Hematuria, Munroe catheter problem, Bladder cancer Primary Care Provider: Fernando Vidal ED Provider: Angelia Gomes Home Meds and New Rx's Prescriptions: No Action sildenafil [Viagra] 50 mg tablet 50 mg PO DAILY PRN (Reason: sexual activity) Qty: 14 0RF Rx Instructions: administer 30 minutes to 4 hours before activity chlorthalidone 25 mg tablet 12.5 mg PO DAILY Qty: 90 3RF allopurinol 300 mg tablet 300 mg PO DAILY Qty: 90 4RF amlodipine 10 mg tablet 10 mg PO DAILY Qty: 90 4RF atorvastatin [Lipitor] 40 mg tablet 40 mg PO DAILY Qty: 90 4RF nitroglycerin 0.4 mg tablet, sublingual 0.4 mg sublingual Q5M PRN (Reason: chest pain) Qty: 14 0RF Rx Instructions: Take 1 tab at onset of symptoms, repeat every 5 minutes x 3 doses if chest pa in persists aspirin 81 mg tablet,delayed release (DR/EC) 81 mg PO DAILY semaglutide 2 mg/dose (8 mg/3 mL) pen injector 2 mg subcut QWEEK Qty: 3 12RF metoprolol succinate 100 mg tablet extended release 24 hr 100 mg PO DAILY Qty: 90 4RF lorazepam [Ativan] 1 mg tablet 1 mg PO DAILY PRN (Reason: anxiety) Qty: 2 0RF Rx Instructions: take 1 pill about 1 hour prior to imaging test - take second pill when you arrive for the test if you are still feeling anxious lisinopril 20 mg tablet 20 mg PO DAILY Patient Comments: TAKE ONE TABLET BY MOUTH EVERY DAY tramadol 50 mg tablet 50 mg PO Q6H MDD 4 PRN (Reason: pain) Qty: 15 0RF phenazopyridine [Pyridium] 200 mg tablet 200 mg PO QPC Qty: 15 0RF cefdinir 300 mg capsule 300 mg PO BID Qty: 14 0RF HPI General Mode of arrival: ambulatory . Date/Time Provider Initiated Documentation: 09/07/25 11:33 . Limitations to Documentation: no limitations . Information obtained by: patient and old records reviewed . HPI Narrative: This is a 65-year-old male patient with a history of metastatic bladder cancer, type 2 diabetes, CAD, hypertension and hyperlipidemia presenting for evaluation of catheter problems and hematuria. The patient was seen here last night for urinary retention and hematuria with clots, had a three-way catheter placed and had bladder irrigation performed. He states that since that time, he has had worsening of his discomfort in his penis and his bladder, and his catheter is no longer draining, he has urinated twice around the catheter with passage of clots. He reports that he is otherwise in his normal state of health and feeling unchanged. He reports that he does not use any blood thinning medications, does not feel dizzy or have chest pain, denies fever or chills. Related Data Home Medications ?Medication ?Instructions ?Recorded ?Confirmed sildenafil 50 mg tablet (Viagra) 50 mg PO DAILY PRN se xual activity 10/27/23 09/07/25 #14 tabs aspirin 81 mg tablet,delayed 81 mg PO DAILY 01/07/24 1 11/07/24 release nitroglycerin 0.4 mg sublingual 0.4 mg sublingual Q5M PRN chest 01/07/24 09/07/25 tablet pain #14 tabs chlorthalidone 25 mg tablet 12.5 mg (1/2 x 25 mg) PO D AILY #90 07/26/24 09/07/25 tabs semaglutide 2 mg/dose (8 mg/3 mL) 2 mg (0.75 mL) subcu t QWEEK #3 mL 09/01/24 09/07/25 subcutaneous pen injector allopurinol 300 mg tablet 300 mg PO DAILY #90 tab-caps 10/28/24 09/07/25 amlodipine 10 mg tablet 10 mg PO DAILY #90 tabs 10/1209/07/25 atorvastatin 40 mg tablet (Lipitor) 40 mg PO DAILY #90 tab-caps 10/28/24 09/07/25 metoprolol succinate 100 mg 100 mg PO DAILY #90 tabs 0 06/06/25 09/07/25 tablet,extended release 24 hr cefdinir 300 mg capsule 300 mg PO BID #14 caps 06/2609/07/25 lisinopril 20 mg tablet 20 mg PO DAILY 07/05/25 1105/05 phenazopyridine 200 mg tablet 200 mg PO QPC 6 doses #1 5 tabs 07/07/25 09/07/25 (Pyridium) tramadol 50 mg tablet 50 mg PO Q6H PRN pain #15 ta bs 07/07/25 09/07/25 lorazepam 1 mg tablet (Ativan) 1 mg PO DAILY PRN anxie ty #2 tabs 07/21/25 09/07/25 Previous Rx's ?Medication ?Instructions ?Recorded sildenafil 50 mg tablet (Viagra) 50 mg PO DAILY PRN se xual activity 10/27/23 #14 tabs nitroglycerin 0.4 mg sublingual 0.4 mg sublingual Q5M PRN chest 01/07/24 tablet pain #14 tabs chlorthalidone 25 mg tablet 12.5 mg (1/2 x 25 mg) PO D AILY #90 07/26/24 tabs semaglutide 2 mg/dose (8 mg/3 mL) 2 mg (0.75 mL) subcu t QWEEK #3 mL 09/01/24 subcutaneous pen injector allopurinol 300 mg tablet 300 mg PO DAILY #90 tab-caps 10/28/24 amlodipine 10 mg tablet 10 mg PO DAILY #90 tabs 10/12 05/05 atorvastatin 40 mg tablet (Lipitor) 40 mg PO DAILY #90 tab-caps 10/28/24 metoprolol succinate 100 mg 100 mg PO DAILY #90 tabs 0 06/06/25 tablet,extended release 24 hr cefdinir 300 mg capsule 300 mg PO BID #14 caps 06/26 phenazopyridine 200 mg tablet 200 mg PO QPC 6 doses #1 5 tabs 07/07/25 (Pyridium) tramadol 50 mg tablet 50 mg PO Q6H PRN pain #15 ta bs 07/07/25 lorazepam 1 mg tablet (Ativan) 1 mg PO DAILY PRN anxie ty #2 tabs 07/21/25 Allergies Allergy/AdvReac Type Severity Reaction Status Date / Time No Known Allergies Allergy Verified 09/07/25 11:32 General Stated Complaint: Urinary SARAH: 3 Exam Narrative Exam Narrative: Gen: Awake and alert, in no apparent distress HEENT: Non-icteric sclera Neck: Supple Lungs: No apparent respiratory distress, normal respiratory effort. CV: Appears well perfused Abdomen: Non-distended, soft, nontender to palpation without rigidity, rebound, or guarding : Three-way Munroe catheter in place, with gerardo red blood appreciated at the urethral meatus and in the leg bag. MSK: Moves 4 extremities without apparent limitation in ROM Skin: Visualized skin without rashes, cyanosis. Neuro: Normal Gait, no obvious focal deficits or facial asymmetry. Speaks in full, clear sentences. Psych: Appropriate for situation. Course Vital Signs Vital signs: Vital Signs Temperature 36.2 C L 09/07/25 11:28 Pulse 92 H 09/07/25 11:28 Respiratory Rate 15 09/07/25 11:28 Blood Pressure 105/67 09/07/25 11:28 Pulse Oximetry 96 09/07/25 11:28 Temperature 36.2 C L 09/07/25 11:33 Temperature Source Tympanic 09/07/25 11:33 Pulse 92 H 09/07/25 11:33 Respiratory Rate 15 09/07/25 11:33 Blood Pressure 105/67 09/07/25 11:33 Blood Pressure Position Sitting 09/07/25 11:28 Pulse Oximetry 96 09/07/25 11:28 Oxygen Delivery Method Room Air 09/07/25 11:33 Oxygen Flow Rate 0 09/07/25 11:28 Pain Level 8 09/07/25 11:33 Medical Decision Making This is a 65-year-old male patient presenting for evaluation of hematuria. My differential includes but is not limited to ongoing bladder clots secondary to his known malignancy. Considered obstruction and displacement of the catheter, kidney injury, anemia, metabolic or electrolyte derangement. I considered urinary tract infection though this is less consistent with the patient's history and physical examination. We will obtain labs to include CBC, CMP, magnesium, urinalysis, and INR. The three-way Munroe catheter flushes easily, though urine continues to flow around the catheter despite hand irrigation. We are able to withdraw bloody fluid through the Munroe catheter into the syringe without difficulty. Given this, I will leave the Munroe catheter in place as it appears patent, and due to the significant difficulty with catheter placement during the prior ED visit. -I reviewed the patient's laboratory studies, which show no leukocytosis, stable anemia at 11.8 and no thrombocytopenia or elevation in the INR. Chemistry panel without electrolyte derangement, creatinine is at his baseline at 1.2, no evidence of liver enzyme abnormalities. I did discuss the patient's case with Dr. Morel with [facility] [place], as we do not have urology coverage until Thursday of next week. He is amenable to accepting this patient in transfer for ongoing management of his hematuria and clots. The patient was transported by [place] ambulance to [facility] [place] for definitive management, did receive additional doses of medications for management of his pain. He did have passage of a small clot into his leg bag and then drainage of a larger amount of instilled saline directly through the catheter into the bag, reassuring against dislodgment of what ever blocking clot was preventing drainage. The patient left our facility without incident, remained hemodynamically appropriate while under my care. Angelia Gomes MD [facility] All Active Problems (Updated 09/07/25 @ 14:15 by Angelia Gomes MD) Munroe catheter problem (Acute) Hematuria (Acute) Bladder cancer (Acute) Nodule of kidney (Acute) Dysuria (Acute) Hematuria (Acute) Erectile dysfunction (Acute) Family history of colon cancer (Acute) Adenomatous colon polyp (Acute) Type 2 diabetes mellitus (Acute) ASCVD (arteriosclerotic cardiovascular disease) (Chronic) stent to LAD 2005-has not needed to f/u up with cardiology but does with PCP Gout (Chronic) Inactive right now. 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 states not arthroplasty but arthroscopy History of heart artery stent Family History Mother , age 80 Diabetes Depression Mental disorder Depression Father , age 49 Stomach cancer Lung cancer Brother , age 71 Essential hypertension Hyperlipidemia Colon cancer Prostate cancer Brother Heart disease Son No problems noted. Daughter , age 20 Asthma Hypertension Brother Heart disease Neoplasm COLON Paternal Grandfather Heart disease Hyperlipidemia Cancer Sister , 61 No problems noted. Social History Smoking/Tobacco Use Status: Former Tobacco Use tobacco type: cigarettes and smokeless tobacco Quit Date: 01/01/00 Tobacco: How many years used: 20 Smokeless tobacco user: chewing tobacco and snuff Second Hand Exposure: Yes Smoking risk assessment performed?: Yes Alcohol Intake: current Alcohol Intake frequency: holidays/special occasions only Alcohol type: beer and hard liquor Drug use: Occasionally Substance use type: marijuana Adopted: No Caregiver/Support person: No Household members: significant other Housing: apartment Number of Children: 2 number of grandchildren: 0 Communication Needs: None Education Level: high school Do you need help understanding health information?: Rarely 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 Pets and animals: No Sexually active: Yes Do you think of yourself as: straight/heterosexual Current gender identity: male What is your relationship status?: How often do you talk on the phone with friends or family?: three or more times per week How often do you get together with friends or relatives?: twice per week How often do you attend voodoo or worship services?: 1-3 times per year Do you belong to any clubs or organized social groups?: yes Panel score (0-1 are the most socially isolated patients): 2 What type of physical activity do you participate in: walking and other Details: golf Duration: 30-45 minutes/day Frequency: 1-2 times per week Special jaime needs: No Agree to transfusion: Yes Seatbelt use: sometimes Helmet use: Yes Helmet use: sometimes Drive intox or ride w/intox auto carrier driver: No Working smoke detector in home: Yes Carbon monox detector in home: Yes Firearms in home: No Do you feel safe at home: Yes Victim of physical abuse: No Victim of emotional abuse: No Victim of sexual abuse: No
[2025-09-07] MEDS: HYDROmorphone 2 MG/ML SYR 0.5 MG IVP ×3 (12:04→16:37)
[2025-09-07 12:06] LABS: Abs Immature Grans 0.05 10^3/uL (0.0-0.06); HCT 34.8 % (40.0-50.0); HGB 11.8 g/dL (13.5-17.5); Immature Grans % 0.6 %; MCH 26.2 pg (27.0-33.0); MCHC 33.9 % (32.0-36.0); MCV 77 fL (80-95); MPV 9.7 fL (8.0-11.0); Platelet Count 204 10^3/uL (130-400); RBC 4.50 10^6/uL (4.36-5.78); RDW 14.1 % (11.8-14.1); RDW-SD 39.0 fL; WBC 7.93 10^3/uL (4.4-10.8)
[2025-09-07] MEDS: Ondansetron 4 MG/2 ML VIAL IVP ×2 (12:09→16:38)
[2025-09-07 12:19] LABS: INR 1.0 (0.9-1.1); Prothrombin Time 10.5 sec (9.1-11.1)
[2025-09-07 12:22] LABS: Magnesium 1.7 mg/dL (1.6-2.6)
[2025-09-07 12:23] LABS: ALT 23 U/L (10-49); AST 20 U/L (<34); Albumin 4.2 g/dL (3.2-5.0); Alkaline Phosphatase 107 U/L (46-116); Anion Gap 9.4 mmol/L (3-11); BUN 13 mg/dL (9-23); Bilirubin, Total 0.60 mg/dL (0.2-1.2); CO2 25.6 mmol/L (20.0-31.0); Calcium 9.3 mg/dL (8.3-10.6); Chloride 106 mmol/L (98-107); Glucose 142 mg/dL (74-106); Potassium 4.1 mmol/L (3.5-5.1); Sodium 141 mmol/L (136-145); Total Protein 7.0 g/dL (5.7-8.2)
[2025-09-07 15:11] VITALS: BP 111/53; PULSE 85; RESP 14; TEMP 36.6; O2SAT 97
[2025-09-07 15:48] LABS: C & S Indicated? No; RBC >50 HPF (0-2); WBC Negative HPF (0-5)
[2025-09-07 17:00] VITALS: BP 111/53; PULSE 85; RESP 14; TEMP 36.6; O2SAT 97
== END 2025-09-07 16:45 | disposition short-term general hospital (02) ==
PROVIDERS: Emergency Provider Emergency Medicine; PCP Nurse Practitioner Family
DX: C67.9 Malignant neoplasm of bladder, unspecified (principal); R31.9 Hematuria, unspecified; T83.098A Other mechanical complication of other urinary catheter, initial encounter
CPT/HCPCS: 36415; 80053; 96374; 96375; 96376; 99285; 81003; 81015; 83735; 85025; 85610; J1171; J2405

== ENCOUNTER 2025-09-19 01:21 | Outpatient (CLI) | payer OTHER, SELFPAY ==
[2025-09-19 08:37] LABS: Abs Immature Grans 0.08 10^3/uL (0.0-0.06); HCT 35.5 % (40.0-50.0); HGB 11.6 g/dL (13.5-17.5); Immature Grans % 1.0 %; MCH 25.4 pg (27.0-33.0); MCHC 32.7 % (32.0-36.0); MCV 78 fL (80-95); MPV 8.1 fL (8.0-11.0); Platelet Count 343 10^3/uL (130-400); RBC 4.57 10^6/uL (4.36-5.78); RDW 14.3 % (11.8-14.1); RDW-SD 40.3 fL; WBC 8.17 10^3/uL (4.4-10.8)
[2025-09-19 08:53] LABS: ALT 26 U/L (10-49); AST 17 U/L (<34); Albumin 4.4 g/dL (3.2-5.0); Alkaline Phosphatase 112 U/L (46-116); Anion Gap 10.5 mmol/L (3-11); BUN 18 mg/dL (9-23); Bilirubin, Total 0.5 mg/dL (0.2-1.2); CO2 26.5 mmol/L (20.0-31.0); Calcium 9.3 mg/dL (8.3-10.6); Chloride 105 mmol/L (98-107); Glucose 152 mg/dL (74-106); Potassium 4.1 mmol/L (3.5-5.1); Sodium 142 mmol/L (136-145); Total Protein 7.3 g/dL (5.7-8.2)
[2025-09-19 08:57] LABS: TSH 2.03 uIU/mL (0.55-4.78)
== END 2025-09-19 01:22 | disposition home or self-care (01) ==
LOC: LBO 01:21
PROVIDERS: PCP Nurse Practitioner Family; Visit Provider Internal Medicine
DX: C79.10 Secondary malignant neoplasm of unspecified urinary organs (principal); R94.6 Abnormal results of thyroid function studies
CPT/HCPCS: 36415; 80053; 84439; 84443; 85025

== ENCOUNTER 2025-09-26 01:35 | Outpatient (CLI) | payer OTHER, SELFPAY ==
[2025-09-26 07:41] LABS: Abs Immature Grans 0.05 10^3/uL (0.0-0.06); HCT 35.7 % (40.0-50.0); HGB 11.5 g/dL (13.5-17.5); Immature Grans % 0.8 %; MCH 24.9 pg (27.0-33.0); MCHC 32.2 % (32.0-36.0); MCV 77 fL (80-95); MPV 8.4 fL (8.0-11.0); Platelet Count 252 10^3/uL (130-400); RBC 4.62 10^6/uL (4.36-5.78); RDW 14.6 % (11.8-14.1); RDW-SD 40.4 fL; WBC 6.39 10^3/uL (4.4-10.8)
[2025-09-26 07:59] LABS: ALT 31 U/L (10-49); AST 22 U/L (<34); Albumin 4.0 g/dL (3.2-5.0); Alkaline Phosphatase 110 U/L (46-116); Anion Gap 10.5 mmol/L (3-11); BUN 19 mg/dL (9-23); Bilirubin, Total 0.5 mg/dL (0.2-1.2); CO2 23.5 mmol/L (20.0-31.0); Calcium 8.9 mg/dL (8.3-10.6); Chloride 105 mmol/L (98-107); Glucose 196 mg/dL (74-106); Potassium 4.1 mmol/L (3.5-5.1); Sodium 139 mmol/L (136-145); Total Protein 6.7 g/dL (5.7-8.2)
[2025-09-26 08:01] LABS: TSH 2.44 uIU/mL (0.55-4.78)
== END 2025-09-26 01:36 | disposition home or self-care (01) ==
LOC: LBO 01:35
PROVIDERS: PCP Nurse Practitioner Family; Visit Provider Internal Medicine
DX: C79.10 Secondary malignant neoplasm of unspecified urinary organs (principal); R94.6 Abnormal results of thyroid function studies
CPT/HCPCS: 36415; 80053; 84439; 84443; 85025

== ENCOUNTER 2025-10-10 00:19 | Outpatient (CLI) | payer OTHER, SELFPAY ==
[2025-10-10 08:16] LABS: Abs Immature Grans 0.06 10^3/uL (0.0-0.06); HCT 33.7 % (40.0-50.0); HGB 11.0 g/dL (13.5-17.5); Immature Grans % 1.4 %; MCH 25.2 pg (27.0-33.0); MCHC 32.6 % (32.0-36.0); MCV 77 fL (80-95); MPV 8.5 fL (8.0-11.0); Platelet Count 276 10^3/uL (130-400); RBC 4.37 10^6/uL (4.36-5.78); RDW 16.4 % (11.8-14.1); RDW-SD 44.2 fL; WBC 4.41 10^3/uL (4.4-10.8)
[2025-10-10 08:37] LABS: ALT 67 U/L (10-49); AST 46 U/L (<34); Albumin 3.8 g/dL (3.2-5.0); Alkaline Phosphatase 97 U/L (46-116); Anion Gap 11.8 mmol/L (3-11); BUN 11 mg/dL (9-23); Bilirubin, Total 0.5 mg/dL (0.2-1.2); CO2 21.2 mmol/L (20.0-31.0); Calcium 8.6 mg/dL (8.3-10.6); Chloride 108 mmol/L (98-107); Glucose 261 mg/dL (74-106); Potassium 3.7 mmol/L (3.5-5.1); Sodium 141 mmol/L (136-145); Total Protein 6.4 g/dL (5.7-8.2)
[2025-10-10 08:40] LABS: TSH 2.71 uIU/mL (0.55-4.78)
== END 2025-10-10 00:20 | disposition home or self-care (01) ==
LOC: LBO 00:19
PROVIDERS: PCP Nurse Practitioner Family; Visit Provider Internal Medicine
DX: C79.10 Secondary malignant neoplasm of unspecified urinary organs (principal); R94.6 Abnormal results of thyroid function studies
CPT/HCPCS: 36415; 80053; 84439; 84443; 85025